=== PATIENT | female | born 1975 | race Caucasian/White ===

== ENCOUNTER 2016-10-03 14:17 | Emergency (ER) | payer BC, OTHER ==
[2016-10-03] MEDS ORDERED: Zofran 4 MG/2 ML VIAL IV ONE (14:34)
[2016-10-03] MEDS ORDERED: Sodium Chloride 0.9% 1000 ML 1,000 ML IV STA (14:34)
[2016-10-03] MEDS ORDERED: NovoLOG Insulin SQ ONE (14:37)
[2016-10-03] MEDS ORDERED: Zofran 4 MG/2 ML VIAL ONE (14:43)
[2016-10-03] MEDS ORDERED: Sodium Chloride 0.9% 1000 ML 1,000 ML ONE (14:44)
[2016-10-03] MEDS ORDERED: NovoLOG Insulin ONE (14:44)
[2016-10-03 14:45] LABS: BASOPHIL % 0.5 % (0.0-0.4); Eosinophil % 7.1 % (0.00-5.0); Granulocytes % 61.5 % (36.0-66.0); Lymphocytes % 26.6 % (24.0-44.0); Mean Cell Volume 88.8 fl (78-100); Mean Corpuscular Hemoglobin 28.4 pg (26-32); Mean Platelet Volume 11.5 fl (6-9.5); Monocytes % 4.3 % (0.0-12.0); Platelet Count 182 K/mm3 (150-450); Red Cell Distribution Width 12.8 % (11.5-14.0)
--- NOTE | 2016-10-03 14:48 | ERPHSYRPT ---
- History of Present Illness Time Seen by Provider: 10/03/16 14:21 Source: patient Exam Limitations: no limitations Patient Subjective Stated Complaint: pt states she began not to feel well while eating lunch today,nausea and weakness. took her bs and it was over 300. Triage Nursing Assessment: pt arrived per wc, alert, sleepy, resp easy,chest clear, abd soft, she states she hurts all over Physician History: patient ate and started feeling bad like her BS was high; she usually takes Humalog for it but wasn;t home so stopped here; took oral meds this am; no fever ; nause but no emesis; no recent exposures, no travel; no diarrhea Timing/Duration: today, hour(s) (1), gradual onset Severity: moderate Modifying Factors: Improves With: eating Associated Symptoms: nausea, abdominal pain (cramps) Allergies/Adverse Reactions: flurbiprofen [From Ansaid] Allergy (Severe, Verified 10/03/16 14:33) Swelling of Face she can take other nsaids Home Medications: Cyanocobalamin (Vitamin B-12) [Vitamin B-12] 1,000 mcg PO UD 01/13/15 [History] Isosorbide Mononitrate 30 mg [Imdur 30 MG] 30 mg PO HS 01/13/15 [History] Lisinopril 10 mg [Zestril 10 MG] 10 mg PO HS 01/13/15 [History] Insulin Lispro [Humalog] 2 units SQ TID 04/07/16 [History] Metformin HCl 1000 mg [Glucophage 1000 MG] 1,000 mg PO BID 04/07/16 [History] Buspirone HCl [Buspar] 15 mg PO BID 04/08/16 [History] Carvedilol 3.125 mg [Coreg 3.125 MG] 3.125 mg DAILY 10/03/16 [History] Imipramine HCl 75 mg HS 10/03/16 [History] Hx Tetanus, Diphtheria Vaccination/Date Given: No Hx Influenza Vaccination/Date Given: No Hx Pneumococcal Vaccination/Date Given: No Immunizations Up to Date: Yes - Review of Systems Constitutional: No Symptoms Eyes: No Symptoms Ears, Nose, & Throat: No Symptoms Respiratory: No Cough, No Dyspnea, No Wheezing Cardiac: No Chest Pain, No Edema, No Palpitations, No Syncope Abdominal/Gastrointestinal: Abdominal Pain (cramps), Nausea (]), No Vomiting, No Diarrhea Genitourinary Symptoms: No Symptoms Musculoskeletal: No Symptoms Skin: No Symptoms Neurological: No Symptoms Psychological: No Symptoms Endocrine: Polyuria, Polydipsia, No Excessive Sweating Hematologic/Lymphatic: No Symptoms Immunological/Allergic: No Symptoms - Past Medical History Pertinent Past Medical History: Yes Neurological History: No Pertinent History ENT History: No Pertinent History Cardiac History: Angina, Hypertension Respiratory History: Asthma Endocrine Medical History: Diabetes Type II Musculoskeletal History: No Pertinent History GI Medical History: Colitis, Diverticulosis, GERD, Gallbladder Disease History: No Pertinent History Psycho-Social History: Depression, Anxiety Female Reproductive Disorders: Menstrual Problems Other Medical History: Mitral valve prolapse - Past Surgical History Past Surgical History: Yes Neuro Surgical History: No Pertinent History Cardiac: Cardiac Catheterization Respiratory: No Pertinent History Gastrointestinal: Other, Cholecystectomy Genitourinary: No Pertinent History, Other Musculoskeletal: No Pertinent History Female Surgical History: Section, Hysterectomy, Tubal Ligation, Other Other Surgical History: Gastric Bypass 2009; Kidney balloon as child; Uteral ablation. UPDATED 06/11/15 - Social History Smoking Status: Current every day smoker How long have you smoked: unsure Exposure to second hand smoke: No Alcohol Use: None Drug Use: none Patient Lives Alone: No - Female History Hx Last Menstrual Period: hyster Hx Now: No - Nursing Vital Signs Nursing Vital Signs: Initial Vital Signs Temperature 97.6 F Temperature Source Oral Pulse Rate 110 Respiratory Rate 18 Blood Pressure [Left Arm] 149/80 Pain Intensity 8 - Physical Exam General Appearance: mild distress, alert, obese Eye Exam: PERRL/EOMI, eyes nml inspection, No photophobia Ears, Nose, Throat Exam: normal ENT inspection, TMs normal, pharynx normal, moist mucous membranes, other (no ketosis on breath) Neck Exam: normal inspection, non-tender, No meningismus Respiratory Exam: normal breath sounds, lungs clear, airway intact, No chest tenderness, No respiratory distress Cardiovascular Exam: regular rate/rhythm, normal heart sounds, normal peripheral pulses, capillary refill <2 sec, No murmur, No friction rub Gastrointestinal/Abdomen Exam: soft, No normal bowel sounds (hyperactive ), No tenderness, No distention, No mass, No guarding, No pulsatile mass, No rebound, No organomegaly Pelvic Exam: deferred Rectal Exam: deferred Back Exam: normal inspection, normal range of motion, No CVA tenderness Extremity Exam: normal inspection, normal range of motion, No pelvis stable, No fabio's sign Neurologic Exam: alert, oriented x 3, cooperative, shear operator automatic II-XII nml as tested, normal mood/affect, nml cerebellar function, nml station & gait, sensation nml Skin Exam: normal color, warm, dry, No rash SpO2 Interpretation: normal SpO2: 99 Oxygen Delivery: Room Air - Course Nursing assessment & vital signs reviewed: Yes Ordered Tests: Active Orders 24 hr Category Date Time Status Accucheck STAT Care 10/03/16 15:15 Active IV Insertion STAT Care 10/03/16 14:34 Active Re-Check Vital Signs STAT Care 10/03/16 14:34 Active CBC W DIFF Stat Lab 10/03/16 14:40 Completed CMP Stat Lab 10/03/16 14:40 Completed Medication Summary Discontinued Medications Generic Name Dose Route Start Last Admin Trade Name Freq PRN Reason Stop Dose Admin Sodium Chloride 1,000 mls @ 999 mls/hr 10/03/16 14:34 10/03/16 14:46 Sodium Chloride 0.9% 1000 Ml IV 10/03/16 15:34 999 mls/hr .Q1H1M STA Administration Sodium Chloride Confirm 10/03/16 14:44 Sodium Chloride 0.9% 1000 Ml Administered 10/03/16 14:45 Dose 1,000 mls @ ud .ROUTE .STK-MED ONE Insulin Aspart 2 unit 10/03/16 14:37 10/03/16 14:46 Novolog Insulin SQ 10/03/16 14:38 2 unit STAT ONE Administration Insulin Aspart Confirm 10/03/16 14:44 Novolog Insulin Administered 10/03/16 14:45 Dose 2 unit .ROUTE .STK-MED ONE Ondansetron HCl 4 mg 10/03/16 14:34 10/03/16 14:46 Zofran 4 Mg/2 Ml Vial IV 10/03/16 14:35 4 mg STAT ONE Administration Ondansetron HCl Confirm 10/03/16 14:43 Zofran 4 Mg/2 Ml Vial Administered 10/03/16 14:44 Dose 4 mg .ROUTE .STK-MED ONE Lab/Rad Data: Laboratory Result Diagrams 10/03/16 14:40 10/03/16 14:40 Laboratory Results 10/03/16 10/03/16 Range/Units 14:40 14:40 WBC 6.0 (4.0-10.5) K/mm3 RBC 4.90 (4.1-5.4) M/mm3 Hgb 13.9 (12.0-16.0) gm/dl Hct 43.5 (35-47) % MCV 88.8 (78-100) fl MCH 28.4 (26-32) pg MCHC 32.0 (32-36) g/dl RDW 12.8 (11.5-14.0) % Plt Count 182 (150-450) K/mm3 MPV 11.5 H (6-9.5) fl Gran % 61.5 (36.0-66.0) % Lymphocytes % 26.6 (24.0-44.0) % Monocytes % 4.3 (0.0-12.0) % Eosinophils % 7.1 H (0.00-5.0) % Basophils % 0.5 (0.0-0.4) % Basophils # 0.03 (0-0.4) Sodium 142 (136-145) mEq/L Potassium 3.8 (3.5-5.1) mEq/L Chloride 106 (98-107) mEq/L Carbon Dioxide 19.9 L (21-32) mEq/L Anion Gap 20.3 H (5-15) MEQ/L BUN 11 (9-20) mg/dL Creatinine 0.92 (0.55-1.30) mg/dl Estimated GFR > 60 ML/MIN Glucose 297 H (70-110) MG/DL Calcium 8.6 (8.5-10.1) mg/dL Total Bilirubin 0.3 (0.2-1.0) mg/dL AST 14 L (15-37) U/L ALT 11 L (12-78) U/L Alkaline Phosphatase 100 (46-116) U/L Serum Total Protein 7.4 (6.4-8.2) gm/dL Albumin 3.8 (3.4-5.0) g/dL reviewed - Progress Progress: improved (after iv fluids and meds), re-examined (after IV fluids and meds) Progress Note: 10/03/16 14:48 IV fluids and meds givne; lab pending; will recheck 10/03/16 15:14 rechecked; significant other at bedside; patient improving clinically; vs ok; cbc ok; labs pending otherwise; will continue fluids and recheck FSBS 10/03/16 15:42 rechecked FSBS and it was 79; will give small amount PB and crackers and recheck ; patient continues to improve 10/03/16 16:27 recheck and BS 69; will give OJ and recheck 10/03/16 17:04 patient rechecked and improving clinically; abdominal cramps resolving; treatment plan and instructions given 10/03/16 17:08 FSBS 93 will d/c Counseled pt/family regarding: lab results, diagnosis, need for follow-up - Departure Time of Disposition: 17:08 Departure Disposition: Home Clinical Impression: Diabetes mellitus type 2 in obese, Hyperglycemia due to type 2 diabetes mellitus Condition: Stable Critical Care Time: No Referrals: SINCERE LEHMAN [Primary Care Provider] - Instructions: Hyperglycemia -- Adult Additional Instructions: good diet; take meds Follow-up with family doctor as directed. Call for appointment. Return if any problems. If you smoke please stop. Call or follow up with your family doctor for assistance if you need it to stop. Please wear your seatbelt when driving. Have a nice day. Thank you for allowing us to participate in your care today. :o) Dr Clemente Krishnan
[2016-10-03 15:20] LABS: ALBUMIN 3.8 g/dL (3.4-5.0); ALKALINE PHOSPHATASE 100 U/L (46-116); ANION GAP 20.3 MEQ/L (5-15); BILIRUBIN,TOTAL 0.3 mg/dL (0.2-1.0); BLOOD UREA NITROGEN 11 mg/dL (9-20); CHLORIDE 106 mEq/L (98-107); Carbon Dioxide 19.9 mEq/L (21-32); Glucose 297 MG/DL (70-110); Potassium 3.8 mEq/L (3.5-5.1); SGOT/AST 14 U/L (15-37); SGPT/ALT 11 U/L (12-78); SODIUM 142 mEq/L (136-145); Total Protein 7.4 gm/dL (6.4-8.2)
[2016-10-03 17:19] VITALS: BP 144/78; PULSE 88; O2SAT 98
== END 2016-10-03 17:19 | disposition home or self-care (01) ==
LOC: ED 14:17
DX: E11.65 Type 2 diabetes mellitus with hyperglycemia (principal); E66.9 Obesity, unspecified; Z79.84 Long term (current) use of oral hypoglycemic drugs
CPT/HCPCS: 36000; 36415; 80053; 82962; 85025; 96360; 96367; 96374; 99283; 99284; 99285; J2405

== ENCOUNTER 2016-11-06 01:21 | Inpatient (IN) | payer OTHER ==
[2016-11-06] MEDS ORDERED: Sodium Chloride 0.9% 1000 ML 1,000 ML ONE ×2 (01:47→02:49)
--- NOTE | 2016-11-06 02:00 | ERPHSYRPT ---
- History of Present Illness Time Seen by Provider: 11/06/16 01:56 Source: patient Exam Limitations: no limitations Physician History: This is a 41-year-old white female with history of angina, high blood pressure, asthma, diabetes, colitis, diverticulosis, GERD, gallbladder disease, depression , anxiety, menstrual problems, mitral valve prolapse. She arrives with complaint of near syncopal episode which occurred proximally 15 minutes prior to arrival . According to the patient she has been having diarrhea and vomiting for 2 days she states she was sitting on the stool and began to feel dizzy felt as if things were going black patient did not fall she did not pass out. She has not had any chest pain she does have some epigastric pain. She states she had a fever yesterday. Past medical history includes angina, high blood pressure, asthma, diabetes, colitis, diverticulosis, GERD, gallbladder disease, depression, anxiety, menstrual period, mitral valve prolapse. Past surgical history includes cardiac catheter, cholecystectomy, , hysterectomy, tubal ligation, gastric bypass, kidney balloon as a child, urine ablation, hysterectomy. Timing/Duration: other (vomiting and diarrhea for 2 days near syncopal episode 15 minutes prior to arrival while sitting on toilet) Severity: moderate Modifying Factors: Worsens With: eating, immobilization, medication, movement, rest, acetaminophen, ibuprofen Associated Symptoms: nausea, vomiting, abdominal pain (epigastric pain), fever, other (near syncopal episode, diarrhea), No shortness of breath, No heartburn, No diaphoresis, No cough, No chills, No chest pain, No headaches, No loss of appetite, No malaise, No rash, No syncope, No seizure, No weakness Allergies/Adverse Reactions: flurbiprofen [From Ansaid] Allergy (Severe, Verified 11/06/16 03:32) Swelling of Face she can take other nsaids Home Medications: Cyanocobalamin (Vitamin B-12) [Vitamin B-12] 1,000 mcg PO 01/13/15 [History] Isosorbide Mononitrate 30 mg [Imdur 30 MG] 30 mg PO 01/13/15 [History] Lisinopril 10 mg [Zestril 10 MG] 10 mg PO 01/13/15 [History] Insulin Lispro [Humalog] 2 units SQ TID 04/07/16 [History] Metformin HCl 1000 mg [Glucophage 1000 MG] 1,000 mg PO BID 04/07/16 [History] Buspirone HCl [Buspar] 15 mg PO BID 04/08/16 [History] Carvedilol 3.125 mg [Coreg 3.125 MG] 3.125 mg DAILY 10/03/16 [History] Imipramine HCl 75 mg HS 10/03/16 [History] Hx Tetanus, Diphtheria Vaccination/Date Given: No Hx Influenza Vaccination/Date Given: No Hx Pneumococcal Vaccination/Date Given: No - Review of Systems Constitutional: Fever, No Chills, No Fatigue, No Lethargy, No Malaise, No Night Sweats, No Weakness, No Weight Loss Eyes: No Symptoms, No Discharge, No Eye Pain, No Eye Redness, No Itchy, No Photophobia, No Tearing, No Vision Changes, No Double Vision, No Foreign Body Sensation Ears, Nose, & Throat: No Symptoms, No Ear Pain, No Ear Discharge, No Hearing Changes, No Tinnitus, No Nose Pain, No Nose Congestion, No Nose Discharge, No Sinus Drainage, No Epistaxis, No Mouth Pain, No Mouth Swelling, No Loose Teeth, No Throat Pain, No Throat Swelling, No Hoarse, No Painful Swallowing, No Snoring , No Stridor Respiratory: No Cough, No Dyspnea Cardiac: No Chest Pain, No Edema, No Syncope Abdominal/Gastrointestinal: Abdominal Pain (epigastric pain), Nausea, Vomiting, Diarrhea, No Constipation, No Hematemesis, No Hematochezia, No Melena, No Dysphagia, No Appetite Changes Genitourinary Symptoms: No Dysuria Musculoskeletal: No Back Pain, No Neck Pain Skin: No Rash Neurological: Other (near syncopal episode on toilet), No Focal Weakness, No Gait Changes, No Headache, No Irritability, No Lethargy, No Paralysis, No Parasthesia, No Seizure, No Sensory Changes, No Speech Changes, No Tics, No Tremors, No Vertigo Psychological: No Symptoms Endocrine: No Symptoms All Other Systems: Reviewed and Negative - Past Medical History Pertinent Past Medical History: Yes Neurological History: No Pertinent History ENT History: No Pertinent History Cardiac History: Angina, Hypertension Respiratory History: Asthma Endocrine Medical History: Diabetes Type II Musculoskeletal History: No Pertinent History GI Medical History: Colitis, Diverticulosis, GERD, Gallbladder Disease History: No Pertinent History Psycho-Social History: Depression, Anxiety Female Reproductive Disorders: Menstrual Problems Other Medical History: Mitral valve prolapse - Past Surgical History Past Surgical History: Yes Neuro Surgical History: No Pertinent History Cardiac: Cardiac Catheterization Respiratory: No Pertinent History Gastrointestinal: Other, Cholecystectomy Genitourinary: No Pertinent History, Other Musculoskeletal: No Pertinent History Female Surgical History: Section, Hysterectomy, Tubal Ligation, Other Other Surgical History: Gastric Bypass 2009; Kidney balloon as child; Uteral ablation. UPDATED 06/11/15 - Social History Smoking Status: Current every day smoker How long have you smoked: unsure Exposure to second hand smoke: No Alcohol Use: None Drug Use: none Patient Lives Alone: No - Female History Hx Now: No - Nursing Vital Signs Nursing Vital Signs: Initial Vital Signs Temperature 97.7 F Temperature Source Oral Pulse Rate 68 Respiratory Rate 16 Blood Pressure [Right Arm] 95/36 Pain Intensity 0 - Physical Exam General Appearance: no apparent distress, alert Eye Exam: PERRL/EOMI, eyes nml inspection Ears, Nose, Throat Exam: normal ENT inspection, TMs normal, pharynx normal, moist mucous membranes Neck Exam: normal inspection, non-tender, supple, full range of motion Respiratory Exam: normal breath sounds, lungs clear, No respiratory distress Cardiovascular Exam: regular rate/rhythm, normal heart sounds, normal peripheral pulses Gastrointestinal/Abdomen Exam: soft, normal bowel sounds, tenderness ( epigastric tenderness), No mass, No rebound Back Exam: normal inspection, normal range of motion, No CVA tenderness, No vertebral tenderness Extremity Exam: normal inspection, normal range of motion, pelvis stable Neurologic Exam: alert, oriented x 3, cooperative, normal mood/affect, nml cerebellar function, nml station & gait, sensation nml, No motor deficits Skin Exam: normal color, warm, dry, No rash SpO2 Interpretation: normal - Course Nursing assessment & vital signs reviewed: Yes EKG Interpreted by Me: RATE (65 bpm), Sinus Rhythm, NORMAL AXIS, Other (EKG sinus rhythm, 65 bpm, normal axis, T-wave inversion in lead 3, U-wave in lead aVFno acute ST or T wave changes) Ordered Tests: Active Orders 24 hr Category Date Time Status Accucheck STAT Care 11/06/16 02:12 Active EKG-ER Only STAT Care 11/06/16 02:12 Active IV Insertion STAT Care 11/06/16 02:12 Active Orthostatic Vital Signs STAT Care 11/06/16 02:12 Active AMYLASE Stat Lab 11/06/16 02:00 Completed CBC W DIFF Stat Lab 11/06/16 02:00 Completed CMP Stat Lab 11/06/16 02:00 Completed LIPASE Stat Lab 11/06/16 02:00 Completed TROPONIN Stat Lab 11/06/16 02:00 Completed Transfer Order Routine Transfer 11/06/16 03:56 Ordered Medication Summary Generic Name Dose Route Start Last Admin Trade Name Freq PRN Reason Stop Dose Admin Potassium Chloride/Sodium Chloride 1,000 mls @ 125 mls/hr 11/06/16 04:00 Sodium Chloride 0.9% W/ 20 Meq Kcl/Liter IV 12/06/16 03:59 .Q8H SISI Discontinued Medications Generic Name Dose Route Start Last Admin Trade Name Freq PRN Reason Stop Dose Admin Fentanyl Citrate 100 mcg 11/06/16 03:53 11/06/16 03:57 Sublimaze 100 Mcg/2 Ml IV 11/06/16 03:54 100 mcg STAT ONE Administration Fentanyl Citrate Confirm 11/06/16 03:53 Sublimaze 100 Mcg/2 Ml Administered 11/06/16 03:54 Dose 100 mcg .ROUTE .STK-MED ONE Sodium Chloride Confirm 11/06/16 01:47 Sodium Chloride 0.9% 1000 Ml Administered 11/06/16 01:48 Dose 1,000 mls @ ud .ROUTE .STK-MED ONE Sodium Chloride 1,000 mls @ 999 mls/hr 11/06/16 02:12 11/06/16 02:40 Sodium Chloride 0.9% 1000 Ml IV 11/06/16 03:12 999 mls/hr .Q1H1M STA Administration Sodium Chloride 1,000 mls @ 999 mls/hr 11/06/16 02:45 11/06/16 02:49 Sodium Chloride 0.9% 1000 Ml IV 11/06/16 03:45 999 mls/hr .Q1H1M STA Administration Sodium Chloride Confirm 11/06/16 02:49 Sodium Chloride 0.9% 1000 Ml Administered 11/06/16 02:50 Dose 1,000 mls @ ud .ROUTE .STK-MED ONE Ondansetron HCl 4 mg 11/06/16 03:31 11/06/16 03:36 Zofran 4 Mg/2 Ml Vial IV 11/06/16 03:32 4 mg STAT ONE Administration Ondansetron HCl Confirm 11/06/16 03:33 Zofran 4 Mg/2 Ml Vial Administered 11/06/16 03:34 Dose 4 mg .ROUTE .STK-MED ONE Lab/Rad Data: Laboratory Result Diagrams 11/06/16 02:00 11/06/16 02:00 Laboratory Results 11/06/16 11/06/16 Range/Units 02:00 02:00 WBC 5.6 (4.0-10.5) K/mm3 RBC 4.91 (4.1-5.4) M/mm3 Hgb 14.2 (12.0-16.0) gm/dl Hct 43.5 (35-47) % MCV 88.6 (78-100) fl MCH 28.9 (26-32) pg MCHC 32.6 (32-36) g/dl RDW 13.4 (11.5-14.0) % Plt Count 245 (150-450) K/mm3 MPV 11.6 H (6-9.5) fl Gran % 57.9 (36.0-66.0) % Lymphocytes % 25.4 (24.0-44.0) % Monocytes % 10.6 (0.0-12.0) % Eosinophils % 5.9 H (0.00-5.0) % Basophils % 0.2 (0.0-0.4) % Basophils # 0.01 (0-0.4) Sodium 138 (136-145) mEq/L Potassium 3.2 L (3.5-5.1) mEq/L Chloride 104 (98-107) mEq/L Carbon Dioxide 20.8 L (21-32) mEq/L Anion Gap 16.3 H (5-15) MEQ/L BUN 17 (9-20) mg/dL Creatinine 0.99 (0.55-1.30) mg/dl Estimated GFR > 60 ML/MIN Glucose 141 H (70-110) MG/DL Calcium 7.9 L (8.5-10.1) mg/dL Total Bilirubin 0.3 (0.2-1.0) mg/dL AST 15 (15-37) U/L ALT 10 L (12-78) U/L Alkaline Phosphatase 58 (46-116) U/L Troponin I < 0.017 (0.000-0.056) ng/ml Serum Total Protein 7.2 (6.4-8.2) gm/dL Albumin 3.4 (3.4-5.0) g/dL Amylase 33 (25-115) U/L Lipase 93 (73-393) U/L - Progress Progress: improved Progress Note: 11/06/16 02:44 Notified by nurse the patient does have orthostatic hypotension. Patient's EKG normal sinus rhythm 65 bpm normal axis patient does have some T- wave inversion in leads III and F this has been seen on some of the patient's previous EKGs. 11/06/16 03:45 Patient's CBC within normal limits hemoglobin 14.7 hematocrit 43.5 chemistry remarkable for a potassium of 3.2 otherwise normal troponin is normal amylase and lipase are normal Patient definitely had orthostatic hypotension she is given normal saline 2 L in the emergency room. Patient states she is having some left sided upper abdominal pain. She has mild tenderness with palpation I've discussed the case with Dr. Hinds who is occupational therapist assistant for Dr. Chong. Will place patient on observation telemetry. Diagnoses vomiting, diarrhea, orthostatic hypotension, near syncopal episode. Will provide IV normal saline with 20 mEq of potassium per liter at 1 25 mL/h. Will write for morphine for pain. Zofran for vomiting. We will obtain serial troponins. . - Departure Time of Disposition: 03:45 Departure Disposition: Observation Clinical Impression: Orthostatic hypotension, near syncopal episode Vomiting Qualifiers: Vomiting type: unspecified Vomiting Intractability: non-intractable Nausea presence: with nausea Qualified Code(s): R11.2 - Nausea with vomiting, unspecified Diarrhea Qualifiers: Diarrhea type: unspecified type Qualified Code(s): R19.7 - Diarrhea, unspecified Condition: Fair Critical Care Time: No Referrals: SINCERE CHONG [Primary Care Provider] -
[2016-11-06] MEDS ORDERED: Sodium Chloride 0.9% 1000 ML 1,000 ML IV STA ×3 (02:12→08:30)
[2016-11-06 02:19] LABS: BASOPHIL % 0.2 % (0.0-0.4); Eosinophil % 5.9 % (0.00-5.0); Granulocytes % 57.9 % (36.0-66.0); Lymphocytes % 25.4 % (24.0-44.0); Mean Cell Volume 88.6 fl (78-100); Mean Corpuscular Hemoglobin 28.9 pg (26-32); Mean Platelet Volume 11.6 fl (6-9.5); Monocytes % 10.6 % (0.0-12.0); Platelet Count 245 K/mm3 (150-450); Red Blood Count 4.91 M/mm3 (4.1-5.4); Red Cell Distribution Width 13.4 % (11.5-14.0); White Blood Count 5.6 K/mm3 (4.0-10.5)
[2016-11-06 02:29] LABS: ALBUMIN 3.4 g/dL (3.4-5.0); ALKALINE PHOSPHATASE 58 U/L (46-116); ANION GAP 16.3 MEQ/L (5-15); BILIRUBIN,TOTAL 0.3 mg/dL (0.2-1.0); BLOOD UREA NITROGEN 17 mg/dL (9-20); CHLORIDE 104 mEq/L (98-107); Carbon Dioxide 20.8 mEq/L (21-32); Glucose 141 MG/DL (70-110); LIPASE 93 U/L (73-393); Potassium 3.2 mEq/L (3.5-5.1); SGOT/AST 15 U/L (15-37); SGPT/ALT 10 U/L (12-78); SODIUM 138 mEq/L (136-145); Total Protein 7.2 gm/dL (6.4-8.2)
[2016-11-06 02:33] LABS: TROPONIN < 0.017 ng/ml (0.000-0.056)
[2016-11-06] MEDS ORDERED: Zofran 4 MG/2 ML VIAL IV ONE (03:31)
[2016-11-06] MEDS ORDERED: Zofran 4 MG/2 ML VIAL ONE (03:33)
[2016-11-06] MEDS ORDERED: SUBLIMAZE 100 MCG/2 ML ONE (03:53)
[2016-11-06] MEDS ORDERED: SUBLIMAZE 100 MCG/2 ML IV ONE (03:53)
[2016-11-06] MEDS ORDERED: Sodium Chloride 0.9% W/ 20 mEq KCl/LITER 1,000 ML IV SCH (04:00)
[2016-11-06] MEDS ORDERED: Sodium Chloride 0.9% W/ 20 mEq KCl/LITER 1,000 ML IV ONE (04:23)
[2016-11-06] MEDS ORDERED: NovoLOG Insulin SQ PRN (04:57)
[2016-11-06] MEDS: Sodium Chloride 0.9% W/ 20 mEq KCl/LITER 1,000 ML IV SCH ×2 (06:22→09:58)
[2016-11-06] MEDS ORDERED: MORPHINE SULFATE 2 MG INJ IV PRN (08:26)
[2016-11-06] MEDS ORDERED: TYLENOL 325 MG PO PRN (08:26)
[2016-11-06] MEDS ORDERED: PROVENTIL 2.5 MG/3 ML NEB IH PRN (08:53)
[2016-11-06] MEDS ORDERED: PROVENTIL COMMON CANISTER IH PRN (08:53)
[2016-11-06] MEDS ORDERED: Cyanocobalamin B-12 1000 MCG/ML IJ PRN (08:56)
[2016-11-06] MEDS ORDERED: NON-FORMULARY ITEM (Cyanocobalamin (Vitamin B-12) [Vitamin B-12] 1,000 MCG) PO SCH (09:00)
--- NOTE | 2016-11-06 09:26 | HP ---
HISTORY OF PRESENT ILLNESS: This is a 41 year-old white female with a complex past medical history who presented to the emergency department early this morning. She reports that she has had vomiting and diarrhea since Friday. Her daughter work her up last night and when she got up to use the bathroom at approximately 0030 hours she was lightheaded and felt like she was going to pass out. Her daughter then woke up her friend who has been staying with her. They brought her to the emergency room. She reports since coming here she has not had any vomiting but had two diarrheal stools. She denies any blood in her stools. She reports that she has been able to take some sips of Jaycee Mist. She reports a fever on Friday and Friday to 103.7F. She denies any travel. She reports some sinus drainage. No cough. No rhinorrhea. She has history of gastric bypass surgery and her gastric bypass surgeon is Dr. Rowan at . The patient denies any history of blockages in her heart. She reports a normal heart cath about a year ago. She takes isosorbide for angina. She denies any congestive heart failure. She reports that she is still feeling dizzy whenever she gets up to use the bathroom. In the emergency room, she was found to be dehydrated. The emergency room doctor reported that he gave her 2 liters normal saline and then he put potassium in her IV fluids as her potassium was also found to be low. REVIEW OF SYSTEMS: She denies any lower extremity edema. She reports she is urinating normally but the nurses told her the urine is dark. She has pain in the middle of her stomach that is sharp. She denies any chest pain or shortness of breath. No cough. No rhinorrhea. No rashes. No fever currently. PAST MEDICAL HISTORY: Gastric bypass surgery. History of obesity. History of angina, hypertension, asthma, diabetes, diverticulosis, gastroesophageal reflux disease, depression, anxiety, cysts on her left ovary, mitral valve prolapse. PAST SURGICAL HISTORY: Cholecystectomy, hysterectomy, section x2, tubal ligation, gastric bypass surgery. She reported some kind of kidney balloon when she was [age] years old. MEDICATIONS: Albuterol, aspirin 81 mg daily, carvedilol 3.125 mg b.i.d., vitamin B12 1,000 mcg twice monthly IM, Imipramine 75 mg p.o. q.h.s., Humalog 2 units t.i.d., isosorbide mononitrate 30 mg every evening, lisinopril 10 mg p.o. q.h.s., Metformin 1,000 mg b.i.d., omeprazole 40 mg p.o. daily, promethazine 25 mg every four hours as needed for vomiting. ALLERGIES: FLURBIPROFEN. The patient reports this is an NSAID but she can take things like ibuprofen. SOCIAL HISTORY: She has three children who live with her. She reports that she has been on medical leave since June for vertigo and syncope and her diabetes. She has a friend staying with her. She denies any alcohol use. She reports she smokes and trying to quit. She denies any illicit drug use. FAMILY HISTORY: Her mother is and of myocardial infarction. Her father is and from squamous cell carcinoma. PHYSICAL EXAMINATION: VITAL SIGNS: Temperature current 97.8F, temperature max 97.8F, heart rate 58 to 104 currently 85, respiratory rate 16 to 20, blood pressure 83 to 102 over 31 to 78, weight 113.3 kg. Oxygen saturation 95 to 98% on room air. GENERAL: The patient is a pleasant talkative lady lying in bed in no acute distress. CVS: She has a regular rate and rhythm. No murmurs, gallops or rubs. CHEST: Clear to auscultation bilaterally. No crackles or wheezes. ABDOMEN: Tender just above her umbilicus. No guarding. No rigidity. Normal bowel sounds. EXTREMITIES: No clubbing, cyanosis or edema. She has +2 radial pulses and +1 dorsalis pedis pulses bilaterally. LABORATORY DATA AND TESTS: White blood cell count was 5.6, hemoglobin 14.2. Potassium 3.2, carbon dioxide 20.8, glucose 141. Amylase and lipase were negative. ASSESSMENT AND PLAN: 1) ABDOMINAL PAIN: She continues to complain of sharp abdominal pain. She is at high risk for intra-abdominal pathology since she has had the gastric bypass surgery. Will check a CT scan of her abdomen and pelvis with and without contrast. 2) DEHYDRATION: The emergency room doctor reported that he gave her 2 liters normal saline in the emergency department and will give her another 1 liter of normal saline bolus and continue with her IV fluids with normal saline with 20 mEq of potassium chloride, 125 ml/hour. Will recheck a BMP. 3) HYPOTENSION: Will hold her antihypertensive and give the bolus as above. Most likely this is related to her dehydration. 4) HYPOKALEMIA: Will check her potassium and check magnesium level. 5) DIABETES MELLITUS TYPE 2: She is on a low dose sliding scale of NovoLog, will continue to hold her Metformin as she is going to be getting CT scan of her abdomen and pelvis with IV contrast.
[2016-11-06 09:43] LABS: ANION GAP 12.7 MEQ/L (5-15); BLOOD UREA NITROGEN 16 mg/dL (9-20); CHLORIDE 109 mEq/L (98-107); Carbon Dioxide 23.6 mEq/L (21-32); Glucose 97 MG/DL (70-110); MAGNESIUM 1.6 mg/dL (1.8-2.4); Potassium 4.3 mEq/L (3.5-5.1); SODIUM 141 mEq/L (136-145)
[2016-11-06] MEDS ORDERED: NON-FORMULARY ITEM (Omeprazole [Omeprazole] 40 MG) PO SCH (10:00)
[2016-11-06] MEDS: SUBLIMAZE 100 MCG/2 ML IV PRN ×4 (10:19→23:26)
[2016-11-06] MEDS: Protonix 40MG Tablet PO SCH (10:20)
[2016-11-06] MEDS: ECOTRIN 81 MG PO SCH (10:20)
[2016-11-06] MEDS ORDERED: HOLD METFORMIN PRODUCTS FOR 48 HOURS MC SCH (11:45)
--- NOTE | 2016-11-06 12:32 | XRAY ---
Indication: Stomach pain. Multiple contiguous axial images obtained through the abdomen and pelvis prior to and following 80 cc Isovue 370 contrast. Oral contrast also given. Comparison: April 07, 2016. Lung bases demonstrates minimal bibasilar atelectasis/scarring. No infiltrate or effusion. Heart is not enlarged. Noncontrasted images through the abdomen demonstrates stable nonobstructing left renal calculus and solitary punctate pancreatic head calcification. No new visceral calcifications/calculi. Again previous gastric bypass surgery. Contrasted bowel loops appear nonobstructed. Again minimal sigmoid diverticulosis with now minimal pericolonic stranding possibly mild/early diverticulitis. Rectum demonstrates air-fluid leveling presumed diarrhea. Normal appendix. No free fluid/air. Again previous hysterectomy and previous cholecystectomy. Remaining liver, pancreas, spleen, adrenal glands, kidneys, ureters, bladder, and aorta appear unremarkable. No pathologic retroperitoneal lymphadenopathy. Osseous structures intact again with lower lumbar degenerative changes. Impression: 1. Again minimal sigmoid diverticulosis with new minimal pericolonic stranding possibly mild/early diverticulitis. Correlate clinically. New rectal fluid leveling presumed diarrhea. 2. Stable nonobstructing left renal calculus, punctate pancreatic calcification, and sigmoid diverticulosis. CTDI 23.68
[2016-11-06] MEDS: Magnesium 1 Gm / 100 Ml D5W*** 100 ML IV SCH ×2 (12:48→13:47)
[2016-11-06] MEDS: D5W/0.45NS W/ 20mEq KCl 1000 ML 1,000 ML IV SCH ×2 (12:49→23:09)
[2016-11-06] MEDS ORDERED: Magnesium Sulfate 1 GM/2 ML VIAL IV ONE (13:00)
[2016-11-06] MEDS: Zofran 4 MG/2 ML VIAL IV PRN ×2 (13:03→23:50)
[2016-11-06] MEDS: Zosyn 3.375GM/100 Ml D5W 100 ML IV SCH ×2 (17:24→23:45)
[2016-11-06] MEDS ORDERED: IMIPRAMINE HCL PO SCH (22:00)
[2016-11-06] MEDS: MEDICATION INTERVENTION MC PRN (22:17)
[2016-11-07] MEDS: Zosyn 3.375GM/100 Ml D5W 100 ML IV SCH ×4 (05:43→23:01)
[2016-11-07 05:47] LABS: ANION GAP 12.6 MEQ/L (5-15); BLOOD UREA NITROGEN 7 mg/dL (9-20); CHLORIDE 110 mEq/L (98-107); Carbon Dioxide 24.7 mEq/L (21-32); Glucose 92 MG/DL (70-110); Potassium 4.1 mEq/L (3.5-5.1); SODIUM 143 mEq/L (136-145)
[2016-11-07 05:53] LABS: BASOPHIL % 0.2 % (0.0-0.4); Eosinophil % 7.1 % (0.00-5.0); Granulocytes % 55.6 % (36.0-66.0); Lymphocytes % 28.1 % (24.0-44.0); Mean Cell Volume 91.3 fl (78-100); Mean Corpuscular Hemoglobin 28.7 pg (26-32); Mean Platelet Volume 11.7 fl (6-9.5); Platelet Count 156 K/mm3 (150-450); Red Cell Distribution Width 13.3 % (11.5-14.0); White Blood Count 4.3 K/mm3 (4.0-10.5)
[2016-11-07] MEDS: SUBLIMAZE 100 MCG/2 ML IV PRN ×5 (08:17→21:59)
[2016-11-07] MEDS: ECOTRIN 81 MG PO SCH (08:18)
[2016-11-07] MEDS: Protonix 40MG Tablet PO SCH (08:18)
--- NOTE | 2016-11-07 09:08 | PCM.NOTE ---
Date and Time: 11/07/16 0904 Subjective Assessment: No diarrhea this morning and no vomiting. Has tolerated Sprite. Still c/o periumbilical abd pain. - Review of Systems Constitutional: No Fever Abdominal/Gastrointestinal: Abdominal Pain Objective Exam General Appearance: no apparent distress Neurologic Exam: alert, oriented x 3, cooperative Skin Exam: normal color, warm, dry Respiratory Exam: normal breath sounds, lungs clear, No crackles/rales, No rhonchi, No wheezing Cardiovascular Exam: regular rate/rhythm, normal heart sounds, No murmur Gastrointestinal/Abdomen Exam: soft, other (hypoactive bowel sounds), No distention, No guarding, No rebound Extremity Exam: No pedal edema, No swelling OBJECTIVE DATA Vital Signs: Vital Signs - 24 hr Temp Pulse Resp BP Pulse Ox 11/07/16 07:31 97.9 F 60 20 102/56 97 11/07/16 07:11 77 18 95 11/07/16 05:00 97.8 F 60 18 114/65 97 11/07/16 00:10 97.6 F 59 L 20 121/58 98 11/06/16 21:00 98.2 F 56 L 18 100/56 96 11/06/16 20:05 62 16 97 11/06/16 17:00 97.7 F 55 L 16 118/77 99 11/06/16 13:03 97.8 F 11/06/16 13:00 98.6 F 53 L 18 88/53 97 11/06/16 12:00 18 11/06/16 09:57 54 L 91/52 11/06/16 09:20 94 L Pain Assessment - Last Documented Pain Intensity 7 Pain Scale Used 0-10 Pain Scale Intake and Output: Intake & Output 11/04/16 11/05/16 11/06/16 11/07/16 11:59 11:59 11:59 11:59 Intake Total 0 3919 Output Total 1100 Balance 0 2819 Weight 113.398 kg 114.033 kg Lab Results: Accuchecks Date 11/06/16 Date 11/06/16 Date 11/06/16 Time 16:30 Time 16:30 Time 11:30 Accucheck Value: 114 Accucheck Value: 107 Accucheck Value: 107 Lab Results-Last 24 Hours 11/06/16 11/06/16 11/06/16 Range/Units 09:00 09:01 11:49 WBC (4.0-10.5) K/mm3 RBC (4.1-5.4) M/mm3 Hgb (12.0-16.0) gm/dl Hct (35-47) % MCV (78-100) fl MCH (26-32) pg MCHC (32-36) g/dl RDW (11.5-14.0) % Plt Count (150-450) K/mm3 MPV (6-9.5) fl Gran % (36.0-66.0) % Lymphocytes % (24.0-44.0) % Monocytes % (0.0-12.0) % Eosinophils % (0.00-5.0) % Basophils % (0.0-0.4) % Basophils # (0-0.4) Sodium 141 (136-145) mEq/L Potassium 4.3 (3.5-5.1) mEq/L Chloride 109 H (98-107) mEq/L Carbon Dioxide 23.6 (21-32) mEq/L Anion Gap 12.7 (5-15) MEQ/L BUN 16 (9-20) mg/dL Creatinine 0.91 (0.55-1.30) mg/dl Estimated GFR > 60 ML/MIN Glucose 97 (70-110) MG/DL Hemoglobin A1c 5.7 (4.5-6.2) Calcium 7.9 L (8.5-10.1) mg/dL Magnesium 1.6 L (1.8-2.4) mg/dL Troponin I < 0.017 (0.000-0.056) ng/ml 11/07/16 11/07/16 11/07/16 Range/Units 04:45 04:45 04:45 WBC 4.3 (4.0-10.5) K/mm3 RBC 3.90 L (4.1-5.4) M/mm3 Hgb 11.2 L (12.0-16.0) gm/dl Hct 35.6 (35-47) % MCV 91.3 (78-100) fl MCH 28.7 (26-32) pg MCHC 31.5 L (32-36) g/dl RDW 13.3 (11.5-14.0) % Plt Count 156 (150-450) K/mm3 MPV 11.7 H (6-9.5) fl Gran % 55.6 (36.0-66.0) % Lymphocytes % 28.1 (24.0-44.0) % Monocytes % 9.0 (0.0-12.0) % Eosinophils % 7.1 H (0.00-5.0) % Basophils % 0.2 (0.0-0.4) % Basophils # 0.01 (0-0.4) Sodium 143 (136-145) mEq/L Potassium 4.1 (3.5-5.1) mEq/L Chloride 110 H (98-107) mEq/L Carbon Dioxide 24.7 (21-32) mEq/L Anion Gap 12.6 (5-15) MEQ/L BUN 7 L (9-20) mg/dL Creatinine 0.91 (0.55-1.30) mg/dl Estimated GFR > 60 ML/MIN Glucose 92 (70-110) MG/DL Hemoglobin A1c (4.5-6.2) Calcium 7.6 L (8.5-10.1) mg/dL Magnesium 1.7 L (1.8-2.4) mg/dL Troponin I (0.000-0.056) ng/ml Radiology Exams: Radiology Procedures Category Date Time Status ABDOMEN AND PELVIS W&WO CONTRA [CT] Routine Exams 11/06/16 08:25 Completed Assessment/Plan (1) Diverticulitis Current Visit: Yes Status: Acute Qualifiers: Diverticulitis site: large intestine Diverticulitis bleeding: without bleeding Diverticulitis complication: without perforation or abscess Qualified Code(s): K57.32 - Diverticulitis of large intestine without perforation or abscess without bleeding Assessment & Plan: on IV zosyn and improving. (2) Abdominal pain Current Visit: Yes Status: Acute Assessment & Plan: has chronic abd pain but this was more acute. Code(s): R10.9 - UNSPECIFIED ABDOMINAL PAIN (3) Diarrhea Current Visit: Yes Status: Acute Qualifiers: Diarrhea type: unspecified type Qualified Code(s): R19.7 - Diarrhea, unspecified Assessment & Plan: improving. ok to try to advance diet as osito. Code(s): R19.7 - DIARRHEA, UNSPECIFIED
[2016-11-07] MEDS: D5W/0.45NS W/ 20mEq KCl 1000 ML 1,000 ML IV SCH ×2 (09:40→18:06)
[2016-11-07] MEDS: Zofran 4 MG/2 ML VIAL IV PRN ×2 (09:42→18:05)
[2016-11-07] MEDS: MEDICATION INTERVENTION MC PRN (22:01)
[2016-11-07] MEDS: Phenergan 25 MG INJ IV PRN (23:01)
[2016-11-08] MEDS: D5W/0.45NS W/ 20mEq KCl 1000 ML 1,000 ML IV SCH ×2 (04:47→15:47)
[2016-11-08] MEDS: Zosyn 3.375GM/100 Ml D5W 100 ML IV SCH ×3 (06:23→18:42)
--- NOTE | 2016-11-08 08:05 | PCM.NOTE ---
Date and Time: 11/08/16 0749 Subjective Assessment: She is still having abdominal pain. Yesterday her fentanyl was increased; it is now lasting at least 4 hours at a time but then the pain returns, in the LUQ and LLQ. She did tolerate some mashed potatoes yesterday. Per nursing, possibly family brought her some other food as well. No vomiting or diarrhea. - Review of Systems Constitutional: No Fever Abdominal/Gastrointestinal: Abdominal Pain, Nausea, No Vomiting, No Diarrhea Objective Exam General Appearance: mild distress Neurologic Exam: alert, oriented x 3, cooperative Skin Exam: normal color, warm, dry Respiratory Exam: normal breath sounds, lungs clear, No crackles/rales, No rhonchi, No wheezing Cardiovascular Exam: regular rate/rhythm, normal heart sounds, No murmur Gastrointestinal/Abdomen Exam: soft, tenderness (LUQ and LLQ, minor), other ( hypoactive bowel sounds), No distention, No mass, No guarding, No rebound Extremity Exam: No pedal edema, No swelling OBJECTIVE DATA Vital Signs: Vital Signs - 24 hr Temp Pulse Resp BP Pulse Ox 11/08/16 05:00 97.7 F 55 L 16 118/65 95 11/08/16 00:37 98.2 F 65 18 130/73 96 11/07/16 23:35 65 18 96 11/07/16 21:00 98.3 F 55 L 16 129/67 99 11/07/16 16:08 97.8 F 70 22 126/78 96 11/07/16 16:00 22 11/07/16 12:22 97.8 F 68 20 124/57 95 11/07/16 11:50 20 11/07/16 08:00 20 Pain Assessment - Last Documented Pain Intensity 6 Pain Scale Used 0-10 Pain Scale Intake and Output: Intake & Output 11/05/16 11/06/16 11/07/16 11/08/16 11:59 11:59 11:59 11:59 Intake Total 0 4039 3001 Output Total 1100 2800 Balance 0 2939 201 Weight 113.398 kg 114.033 kg Lab Results: Accuchecks Date 11/07/16 Date 11/07/16 Time 16:00 Time 11:30 Accucheck Value: 113 Accucheck Value: 131 Accucheck Value: 98 Radiology Exams: Radiology Procedures Category Date Time Status ABDOMEN AND PELVIS W&WO CONTRA [CT] Routine Exams 11/06/16 08:25 Completed Assessment/Plan (1) Diverticulitis Current Visit: Yes Status: Acute Qualifiers: Diverticulitis site: large intestine Diverticulitis bleeding: without bleeding Diverticulitis complication: without perforation or abscess Qualified Code(s): K57.32 - Diverticulitis of large intestine without perforation or abscess without bleeding Assessment & Plan: On IV zosyn. Scale back the diet to strict CLD. No outside food. Continue IV fentanyl for pain as her bp runs low. (2) Abdominal pain Current Visit: Yes Status: Acute Code(s): R10.9 - UNSPECIFIED ABDOMINAL PAIN (3) Diarrhea Current Visit: Yes Status: Acute Qualifiers: Diarrhea type: unspecified type Qualified Code(s): R19.7 - Diarrhea, unspecified Assessment & Plan: resolved Code(s): R19.7 - DIARRHEA, UNSPECIFIED
[2016-11-08] MEDS: Protonix 40MG Tablet PO SCH (08:30)
[2016-11-08] MEDS: ECOTRIN 81 MG PO SCH (08:30)
[2016-11-08] MEDS: Zofran 4 MG/2 ML VIAL IV PRN (08:36)
[2016-11-08] MEDS: SUBLIMAZE 100 MCG/2 ML IV PRN ×3 (08:36→19:43)
[2016-11-08] MEDS: Phenergan 25 MG INJ IV PRN (13:59)
[2016-11-09] MEDS: D5W/0.45NS W/ 20mEq KCl 1000 ML 1,000 ML IV SCH ×3 (00:25→11:09)
[2016-11-09] MEDS: SUBLIMAZE 100 MCG/2 ML IV PRN ×2 (00:43→09:35)
[2016-11-09] MEDS: Phenergan 25 MG INJ IV PRN ×2 (00:44→14:17)
[2016-11-09] MEDS: MEDICATION INTERVENTION MC PRN (00:45)
[2016-11-09] MEDS: Zosyn 3.375GM/100 Ml D5W 100 ML IV SCH ×4 (01:06→18:05)
[2016-11-09] MEDS: Protonix 40MG Tablet PO SCH (09:25)
[2016-11-09] MEDS: ECOTRIN 81 MG PO SCH (09:25)
[2016-11-09] MEDS: Zofran 4 MG/2 ML VIAL IV PRN ×2 (09:36→22:47)
--- NOTE | 2016-11-09 11:17 | PCM.NOTE ---
Date and Time: 11/09/16 1113 Subjective Assessment: She reports some continued abdominal pain but wants to try some chicken noodle soup. She is agreeable to changing to oral pain medication and understands that this is only for short term treatment and not to be terminal worker. She has not had a stool but states there is not much in there to come out. - Review of Systems Constitutional: No Symptoms Eyes: No Symptoms Ears, Nose, & Throat: No Symptoms Respiratory: No Symptoms Cardiac: No Symptoms Abdominal/Gastrointestinal: Abdominal Pain, Nausea, No Vomiting, No Diarrhea, No Constipation Genitourinary Symptoms: No Symptoms Musculoskeletal: No Symptoms Skin: No Symptoms Objective Exam General Appearance: no apparent distress, alert, obese Neurologic Exam: alert, cooperative, normal mood/affect Skin Exam: normal color, warm, dry, No rash Respiratory Exam: normal breath sounds, lungs clear, No crackles/rales, No rhonchi, No wheezing Cardiovascular Exam: regular rate/rhythm, normal heart sounds, No murmur, No friction rub, No gallop Gastrointestinal/Abdomen Exam: soft, normal bowel sounds, tenderness, other ( mild epigastric and left lower quadrant tenderness), No distention, No mass, No guarding Extremity Exam: other (no c/c/e) OBJECTIVE DATA Vital Signs: Vital Signs - 24 hr Temp Pulse Resp BP Pulse Ox 11/09/16 07:32 98 F 70 20 122/58 99 11/09/16 05:00 97.8 F 53 L 16 134/77 99 11/09/16 04:00 16 11/09/16 00:09 97.9 F 54 L 15 149/72 97 11/09/16 00:00 18 11/08/16 22:10 67 18 96 11/08/16 21:00 98.6 F 65 17 127/71 95 11/08/16 20:00 18 11/08/16 16:29 98.2 F 57 L 18 118/68 99 11/08/16 12:51 97.8 F 66 20 131/69 99 Pain Assessment - Last Documented Pain Intensity 2 Pain Scale Used 0-10 Pain Scale Intake and Output: Intake & Output 11/07/16 11/08/16 11/09/16 11/10/16 06:59 06:59 06:59 07:59 Intake Total 5122 420 Output Total 3400 500 Balance 1722 -80 Weight 114.85 kg 116.165 kg Lab Results: Accuchecks Accucheck Value: 84 Accucheck Value: 94 Accucheck Value: 95 Accucheck Value: 100 Assessment/Plan (1) Diverticulitis Current Visit: Yes Status: Acute Qualifiers: Diverticulitis site: large intestine Diverticulitis bleeding: without bleeding Diverticulitis complication: without perforation or abscess Qualified Code(s): K57.32 - Diverticulitis of large intestine without perforation or abscess without bleeding Assessment & Plan: Continue zosyn and try to transition to oral pain medication from the IV fentanyl. If she can tolerate oral pain medication for her pain control, may be able to be discharged home tomorrow on oral antibiotics. (2) Diabetes mellitus type 2 in obese Current Visit: No Status: Acute Assessment & Plan: Currently her blood glucoses are controlled without medication. Code(s): E11.9 - TYPE 2 DIABETES MELLITUS WITHOUT COMPLICATIONS; E66.9 - OBESITY , UNSPECIFIED (3) Hypotension Current Visit: Yes Status: Acute Assessment & Plan: This has resolved and her blood pressure is good now. Code(s): I95.9 - HYPOTENSION, UNSPECIFIED
[2016-11-09] MEDS: NORCO 5/325 MG PO PRN ×2 (14:21→22:47)
[2016-11-10] MEDS: D5W/0.45NS W/ 20mEq KCl 1000 ML 1,000 ML IV SCH ×2 (00:32→06:22)
[2016-11-10] MEDS: Zosyn 3.375GM/100 Ml D5W 100 ML IV SCH ×3 (00:52→12:30)
[2016-11-10] MEDS: NORCO 5/325 MG PO PRN (08:07)
[2016-11-10] MEDS: Zofran 4 MG/2 ML VIAL IV PRN (08:07)
[2016-11-10] MEDS: ECOTRIN 81 MG PO SCH (08:55)
[2016-11-10] MEDS: Protonix 40MG Tablet PO SCH (08:55)
--- NOTE | 2016-11-10 10:20 | PCM.DCORD ---
- Discharge Discharge Date: 11/10/16 Disposition: Home, Self-Care Condition: Good Prescriptions: New Amoxicillin/Potassium Clav [Augmentin Xr 1,000-62.5 Tab] 1 each PO BID #8 tab.er.12h Hydrocodone Bit/Acetaminophen [[place] 5-325 Tablet] 1 each PO TID PRN #10 tablet PRN Reason: Pain Continue Isosorbide Mononitrate 30 mg [Imdur 30 MG] 30 mg PO HS Cyanocobalamin (Vitamin B-12) [Vitamin B-12] 1,000 mcg PO UD Promethazine HCl 25 mg [Phenergan 25 mg] 25 mg PO Q4-6HPRN PRN #12 tablet PRN Reason: nausea and vomiting Metformin HCl 1000 mg [Glucophage 1000 MG] 1,000 mg PO BID Aspirin [Aspirin EC] 81 mg PO DAILY #90 tablet. Omeprazole 40 mg PO DAILY #30 capsule. Imipramine HCl 75 mg HS Albuterol 2.5 mg/3 ml Neb [Proventil 2.5 mg/3 ml Neb] 2.5 mg IH Q4H PRN PRN Reason: asthma Albuterol Common Canister [Proventil Common Canister] 2 puff IH Q4H PRN PRN Reason: Asthma Discontinued Lisinopril 10 mg [Zestril 10 MG] 10 mg PO HS Insulin Lispro [Humalog] 2 units SQ TID Carvedilol 3.125 mg [Coreg 3.125 MG] 3.125 mg BID Follow up with: SINCERE LEHMAN [Primary Care Provider] -
[2016-11-10 11:52] VITALS: BP 161/80; PULSE 62; O2SAT 98
--- NOTE | 2016-11-12 12:56 | DS ---
DISCHARGE DIAGNOSES: 1) DIVERTICULITIS. 2) DIABETES MELLITUS TYPE 2. 3) HYPOTENSION. DISCHARGE PHYSICAL EXAMINATION: VITALS: Temperature current 97.6F, temperature max 98.2F, heart rate 55 to 56, respiratory rate 14 to 18, blood pressure 132 to 134 over 74 to 83, weight 117.8 kg. Oxygen saturation 99% on room air. GENERAL: The patient is a pleasant lady lying in bed in no acute distress. CVS: She has a regular rate and rhythm. No murmurs, gallops or rubs. CHEST: Clear to auscultation bilaterally. No crackles or wheezes. ABDOMEN: Mild tenderness in epigastric area and left lower quadrant, normal bowel sounds. No guarding. No rigidity. EXTREMITIES: No clubbing, cyanosis or edema. SKIN: Warm, dry and intact. HOSPITAL COURSE: 1) DIVERTICULITIS: She was admitted with abdominal pain and had a CT scan that was concerning for diverticulitis. She was started on Zosyn the evening of 11/06/2016 and this was continued during her hospitalization. I will plan to finish out four more days of Augmentin extended release 1 tablet p.o. b.i.d. 2) DIABETES MELLITUS TYPE 2: She was on a sliding scale here. Her Metformin was held, will restart 2 units of insulin with her meals and the Metformin at home. 3) HYPOTENSION: She was given normal saline boluses of fluids during her hospitalization. Her hypotension has resolved. She has not been restarted on her antihypertensive. She may restart her Imdur but we are going to have her not restart her carvedilol or lisinopril at this time and she will need to follow up with Dr. Chong about her blood pressure. DISCHARGE MEDICATIONS: Please see the discharge order. DISPOSITION: The patient was discharged to home in fair condition.
== END 2016-11-10 12:40 | disposition home or self-care (01) | DRG 392 ==
LOC: ED 01:21 → UNDOADMOB 04:56 → MED SURG 04:56 → OBSVTOIN 11-08 07:49 → INTOOBSV 11-08 07:49 → UNDODISIN 11-10 12:40
PROVIDERS: ADMIT Family Medicine; ATTEND Family Medicine
DX: K57.32 Diverticulitis of large intestine without perforation or abscess without bleeding (principal); E11.9 Type 2 diabetes mellitus without complications; Z79.4 Long term (current) use of insulin; I95.9 Hypotension, unspecified; Z98.84 Bariatric surgery status; I10 Essential (primary) hypertension; J45.909 Unspecified asthma, uncomplicated; K21.9 Gastro-esophageal reflux disease without esophagitis; E66.9 Obesity, unspecified; F41.8 Other specified anxiety disorders; I34.1 Nonrheumatic mitral (valve) prolapse; R10.9 Unspecified abdominal pain; R19.7 Diarrhea, unspecified; E86.0 Dehydration; E87.6 Hypokalemia; Z79.899 Other long term (current) drug therapy
CPT/HCPCS: 36000; 36415; 74178; 80048; 80053; 82150; 82962; 83036; 83605; 83690; 83735; 84484; 85025; 93005; 93268; 94760; 96360; 96361; 96374; 96375; 99285; G0378; J2270; J2405; J2543; J2550; J3010; J3475

== ENCOUNTER 2017-02-18 22:03 | Observation (INO) | payer OTHER ==
[2017-02-18] MEDS ORDERED: Sodium Chloride 0.9% 1000 ML 1,000 ML IV SCH (22:15)
[2017-02-18] MEDS ORDERED: D50W 50 ml Abboject IV ONE ×2 (22:15→22:17)
[2017-02-18] MEDS ORDERED: Zofran 4 MG/2 ML VIAL IV ONE (22:15)
[2017-02-18] MEDS ORDERED: Sodium Chloride 0.9% 1000 ML 1,000 ML ONE ×2 (22:17→23:51)
[2017-02-18] MEDS ORDERED: Zofran 4 MG/2 ML VIAL ONE ×2 (22:17→23:51)
[2017-02-18] MEDS: Sodium Chloride 0.9% 1000 ML 1,000 ML IV STA ×2 (22:22→23:53)
[2017-02-18 22:25] LABS: BASOPHIL % 0.2 % (0.0-0.4); Eosinophil % 3.6 % (0.00-5.0); Granulocytes % 50.5 % (36.0-66.0); Lymphocytes % 36.6 % (24.0-44.0); Mean Cell Volume 89.5 fl (78-100); Mean Platelet Volume 11.7 fl (6-9.5); Monocytes % 9.1 % (0.0-12.0); Platelet Count 244 K/mm3 (150-450); Red Blood Count 5.14 M/mm3 (4.1-5.4); Red Cell Distribution Width 13.3 % (11.5-14.0)
[2017-02-18 22:45] LABS: ALBUMIN 3.6 g/dL (3.4-5.0); ALKALINE PHOSPHATASE 80 U/L (46-116); ANION GAP 14.1 MEQ/L (5-15); BLOOD UREA NITROGEN 13 mg/dL (9-20); CHLORIDE 107 mEq/L (98-107); Carbon Dioxide 24.6 mEq/L (21-32); Glucose 53 MG/DL (70-110); Potassium 3.3 mEq/L (3.5-5.1); SGOT/AST 12 U/L (15-37); SODIUM 142 mEq/L (136-145); Total Protein 7.2 gm/dL (6.4-8.2)
--- NOTE | 2017-02-18 22:53 | ERPHSYRPT ---
- History of Present Illness Time Seen by Provider: 02/18/17 22:26 Historian: patient Exam Limitations: clinical condition Patient Subjective Stated Complaint: LOW BLOOD SUAGR OF 40. C/O ABD PAIN. CHANGED ONCE A WEEK INSULIN SHOT TO TRUCILITY WHICH IS ONCE EVERY FRIDAY. Triage Nursing Assessment: PT SLEEPY BUT WAKES WHEN SPOKEN TO. PT COOL AND CLAMY. RESPIRATIONS EVEN AND UNLABORED. Physician History: PATIENT WITH HISTORY OF TYPE 2 DIABETES, HYPERTENSION, MITRAL VALVE PROLAPSE, HISTORY OF COLITIS, COMPLAINS OF NAUSEA WITH EMESIS X 4 DAYS ASSOCIATED WITH WATERY DIARRHEA X 7 EPISODES TODAY. STATES HER BLOOD GLUCOSE IS LOW IN THE 40'S TODAY. HAS ASSOCIATED ABDOMINAL PAIN TODAY. DENIES FEVER OR CHILLS. Timing/Duration: day(s) Activities at Onset: none Quality: cramping Abdominal Pain Onset Location: generalized abdomen Pain Radiation: no radiation Severity of Pain-Max: moderate Severity of Pain-Current: mild Modifying Factors: Improves With: vomiting, other (DIARRHEA) Associated Symptoms: diarrhea, nausea, other (LOW BLOOD GLUCOSE) Allergies/Adverse Reactions: flurbiprofen [From Ansaid] Allergy (Severe, Verified 11/06/16 09:37) Swelling she can take other nsaids morphine Adverse Reaction (Intermediate, Verified 11/06/16 09:37) Itching "I've never been told im allergic to to it but it makes me itch and i don't like how it makes me feel" Home Medications: Cyanocobalamin (Vitamin B-12) [Vitamin B-12] 1,000 mcg PO 01/13/15 [History] Isosorbide Mononitrate 30 mg [Imdur 30 MG] 30 mg PO 01/13/15 [History] Metformin HCl 1000 mg [Glucophage 1000 MG] 500 mg PO DAILY 04/07/16 [History] Imipramine HCl 75 mg 10/03/16 [History] Albuterol 2.5 mg/3 ml Neb [Proventil 2.5 mg/3 ml Neb] 2.5 mg IH Q4H PRN [History] Albuterol Common Canister [Proventil Common Canister] 2 puff IH Q4H PRN [History] Carvedilol 3.125 mg [Coreg 3.125 MG] 3.125 mg PO DAILY 02/18/17 [History] Lisinopril 20 mg PO DAILY 02/18/17 [History] Hx Tetanus, Diphtheria Vaccination/Date Given: No Hx Influenza Vaccination/Date Given: Yes Hx Pneumococcal Vaccination/Date Given: Yes (2015) Immunizations Up to Date: Yes - Review of Systems Constitutional: Weakness, No Fever, No Chills Eyes: No Symptoms Ears, Nose, & Throat: No Symptoms Respiratory: No Symptoms, No Cough, No Dyspnea Cardiac: No Symptoms, No Chest Pain, No Edema, No Syncope Abdominal/Gastrointestinal: Abdominal Pain, Nausea, Vomiting, Diarrhea Genitourinary Symptoms: No Symptoms, No Dysuria Musculoskeletal: No Symptoms, No Back Pain, No Neck Pain Skin: No Symptoms, No Rash Neurological: No Dizziness, No Focal Weakness, No Sensory Changes Psychological: No Symptoms Endocrine: No Symptoms All Other Systems: Reviewed and Negative - Past Medical History Pertinent Past Medical History: Yes Neurological History: Migraines, Other ENT History: No Pertinent History Cardiac History: Hypertension Respiratory History: Asthma Endocrine Medical History: Diabetes Type II Musculoskeletal History: No Pertinent History GI Medical History: Colitis, Diverticulosis, GERD, Gallbladder Disease History: No Pertinent History Psycho-Social History: Depression, Anxiety Female Reproductive Disorders: Menstrual Problems Other Medical History: TYPE II DM, MVP, VERTIGO - Past Surgical History Past Surgical History: Yes Neuro Surgical History: No Pertinent History Cardiac: Cardiac Catheterization Respiratory: No Pertinent History Gastrointestinal: Other, Cholecystectomy Genitourinary: No Pertinent History, Other Musculoskeletal: No Pertinent History Female Surgical History: Section, Hysterectomy, Tubal Ligation, Other Other Surgical History: Gastric Bypass 2009; Kidney balloon as child; Uteral ablation. UPDATED 06/11/15 - Social History Smoking Status: Current every day smoker How long have you smoked: 10 Exposure to second hand smoke: Yes Alcohol Use: None Drug Use: none Patient Lives Alone: No - Female History Hx Now: No - Nursing Vital Signs Nursing Vital Signs: Initial Vital Signs Pulse Rate 64 Respiratory Rate 18 Blood Pressure [Right Arm] 141/79 Pain Intensity 6 - Physical Exam General Appearance: no apparent distress, alert Eye Exam: PERRL/EOMI, eyes nml inspection Ears, Nose, Throat Exam: normal ENT inspection, pharynx normal, moist mucous membranes Neck Exam: normal inspection, non-tender, supple, full range of motion Respiratory Exam: normal breath sounds, lungs clear, No respiratory distress Cardiovascular Exam: regular rate/rhythm, normal heart sounds Gastrointestinal/Abdomen Exam: soft, normal bowel sounds, tenderness (THERE IS MINIMAL PERIUMBILICAL TENDERNESS, NO GUARDING OR REBOUND TENDERNESS), No mass Back Exam: normal inspection, normal range of motion, No CVA tenderness, No vertebral tenderness Extremity Exam: normal inspection, normal range of motion, pelvis stable Neurologic Exam: alert, oriented x 3, cooperative, normal mood/affect, nml cerebellar function, sensation nml, No motor deficits Skin Exam: normal color, warm, dry SpO2 Interpretation: normal SpO2: 97 Oxygen Delivery: Room Air - Course EKG Interpreted by Me: RATE, Sinus Rhythm, NORMAL AXIS Ordered Tests: Active Orders 24 hr Category Date Time Status Bedrest with BRP/BSC ROUTINE Activity 02/19/17 01:40 Active ACCUCHECK [Accucheck] STAT Care 02/19/17 00:02 Active Accucheck Q6H Care 02/19/17 01:38 Active Admission/Status Order ROUTINE Care 02/19/17 01:38 Active Call Admit Doctor for Orders ON ADMISSION Care 02/19/17 01:40 Active Code Status Order ROUTINE Care 02/19/17 01:38 Active EKG-ER Only STAT Care 02/18/17 22:14 Active IV Care Q6H Care 02/19/17 01:38 Active IV Insertion STAT Care 02/18/17 22:14 Active IV Insertion STAT Care 02/18/17 22:14 Active Intake and Output Q12H Care 02/19/17 01:38 Active Orthostatic Vital Signs STAT Care 02/18/17 22:19 Active Telemetry ROUTINE Care 02/19/17 01:38 Active Vital Signs Q4H Care 02/19/17 01:38 Active Clear Liquid Diet 02/19/17 Breakfast Active CBC W DIFF Stat Lab 02/18/17 22:15 Completed CMP Stat Lab 02/18/17 22:15 Completed Occult Blood,Stool Other Stat Lab 02/18/17 22:42 Uncollected Oxygen NASAL CANNULA 2 lpm RT 02/19/17 01:38 Active Transfer Order Routine Transfer 02/19/17 01:33 Ordered Medication Summary Generic Name Dose Route Start Last Admin Trade Name Freq PRN Reason Stop Dose Admin Acetaminophen 650 mg 02/19/17 01:38 Tylenol 325 Mg PO 03/21/17 01:37 Q4H PRN PRN PAIN AND/OR FEVER Albuterol/Ipratropium 3 ml 02/19/17 01:38 Duoneb 0.5-3 Mg/3 Ml Neb IH 03/21/17 01:37 Q4HPRN PRN SHORTNESS OF BREATH/WHEEZING Potassium Chloride/Dextrose/Sod Cl 1,000 mls @ 100 mls/hr 02/19/17 02:00 D5w/0.45ns W/ 20meq Kcl 1000 Ml IV 03/21/17 01:59 .Q10H SISI Pantoprazole Sodium 40 mg 02/19/17 10:00 Protonix 40 Mg Iv IV 03/21/17 09:59 Q24H10 SISI Discontinued Medications Generic Name Dose Route Start Last Admin Trade Name Freq PRN Reason Stop Dose Admin Dextrose 50 ml 02/18/17 22:15 02/18/17 22:22 D50w 50 Ml Abboject IV 02/18/17 22:16 50 ml STAT ONE Administration Dextrose Confirm 02/18/17 22:17 D50w 50 Ml Abboject Administered 02/18/17 22:18 Dose 50 ml IV .STK-MED ONE Fentanyl Citrate 100 mcg 02/18/17 23:50 02/18/17 23:53 Sublimaze 100 Mcg/2 Ml IV 02/18/17 23:51 100 mcg STAT ONE Administration Fentanyl Citrate Confirm 02/18/17 23:51 Sublimaze 100 Mcg/2 Ml Administered 02/18/17 23:52 Dose 100 mcg .ROUTE .STK-MED ONE Sodium Chloride 1,000 mls @ 200 mls/hr 02/18/17 22:15 02/18/17 22:23 Sodium Chloride 0.9% 1000 Ml IV 03/20/17 22:14 Not Given .Q5H SISI Sodium Chloride 1,000 mls @ 500 mls/hr 02/18/17 22:18 02/18/17 23:53 Sodium Chloride 0.9% 1000 Ml IV 02/19/17 00:17 500 mls/hr .Q2H STA Administration Sodium Chloride Confirm 02/18/17 22:17 Sodium Chloride 0.9% 1000 Ml Administered 02/18/17 22:18 Dose 1,000 mls @ ud .ROUTE .STK-MED ONE Sodium Chloride Confirm 02/18/17 23:51 Sodium Chloride 0.9% 1000 Ml Administered 02/18/17 23:52 Dose 1,000 mls @ ud .ROUTE .STK-MED ONE Ondansetron HCl 4 mg 02/18/17 22:15 02/18/17 22:22 Zofran 4 Mg/2 Ml Vial IV 02/18/17 22:16 4 mg STAT ONE Administration Ondansetron HCl Confirm 02/18/17 22:17 Zofran 4 Mg/2 Ml Vial Administered 02/18/17 22:18 Dose 4 mg .ROUTE .STK-MED ONE Ondansetron HCl Confirm 02/18/17 23:51 Zofran 4 Mg/2 Ml Vial Administered 02/18/17 23:52 Dose 4 mg .ROUTE .STK-MED ONE Lab/Rad Data: Laboratory Result Diagrams 02/18/17 22:15 02/18/17 22:15 Laboratory Results 02/18/17 02/18/17 Range/Units 22:15 22:15 WBC 12.0 H (4.0-10.5) K/mm3 RBC 5.14 (4.1-5.4) M/mm3 Hgb 14.9 (12.0-16.0) gm/dl Hct 46.0 (35-47) % MCV 89.5 (78-100) fl MCH 29.0 (26-32) pg MCHC 32.4 (32-36) g/dl RDW 13.3 (11.5-14.0) % Plt Count 244 (150-450) K/mm3 MPV 11.7 H (6-9.5) fl Gran % 50.5 (36.0-66.0) % Lymphocytes % 36.6 (24.0-44.0) % Monocytes % 9.1 (0.0-12.0) % Eosinophils % 3.6 (0.00-5.0) % Basophils % 0.2 (0.0-0.4) % Basophils # 0.02 (0-0.4) Sodium 142 (136-145) mEq/L Potassium 3.3 L (3.5-5.1) mEq/L Chloride 107 (98-107) mEq/L Carbon Dioxide 24.6 (21-32) mEq/L Anion Gap 14.1 (5-15) MEQ/L BUN 13 (9-20) mg/dL Creatinine 0.85 (0.55-1.30) mg/dl Estimated GFR > 60 ML/MIN Glucose 53 L (70-110) MG/DL Calcium 8.9 (8.5-10.1) mg/dL Total Bilirubin 0.20 (0.2-1.0) mg/dL AST 12 L (15-37) U/L ALT 13 (12-78) U/L Alkaline Phosphatase 80 (46-116) U/L Serum Total Protein 7.2 (6.4-8.2) gm/dL Albumin 3.6 (3.4-5.0) g/dL - Progress Progress Note: 02/18/17 22:54 PATIENT GIVEN 1 AMP D50 IVP, IV NORMAL SALINE 500ML/HR 02/19/17 00:28 REPEAT ACCUCHECK 101 Discussed with : Castillo (DISCUSSED WITH DR LEHMAN AT 0100 FOR OBSERVATION) Counseled pt/family regarding: lab results, diagnosis, need for follow-up - Departure Time of Disposition: 01:40 Departure Disposition: Observation Clinical Impression: HYPOGLYCEMIA, INTRACTABLE EMESIS AND DIARRHEA, Dizziness Condition: Stable Critical Care Time: No Referrals: SINCERE LEHMAN [Primary Care Provider] -
[2017-02-18 23:19] LABS: SGPT/ALT 13 U/L (12-78)
[2017-02-18] MEDS ORDERED: SUBLIMAZE 100 MCG/2 ML IV ONE (23:50)
[2017-02-18] MEDS ORDERED: SUBLIMAZE 100 MCG/2 ML ONE (23:51)
[2017-02-19] MEDS ORDERED: TYLENOL 325 MG PO PRN (01:38)
[2017-02-19] MEDS ORDERED: DUONEB 0.5-3 MG/3 ml Neb IH PRN (01:38)
[2017-02-19] MEDS ORDERED: Dextrose 5% -0.45 NaCl 1000 ML 1,000 ML IV ONE (02:14)
[2017-02-19] MEDS ORDERED: PROVENTIL 2.5 MG/3 ML NEB IH PRN (02:26)
[2017-02-19] MEDS ORDERED: PROVENTIL COMMON CANISTER IH PRN (02:26)
[2017-02-19] MEDS: D5W/0.45NS W/ 20mEq KCl 1000 ML 1,000 ML IV SCH ×4 (02:36→22:56)
--- NOTE | 2017-02-19 08:29 | PCM.HP ---
History of Present Illness - Chief Complaint Chief Complaint: HYPOGLYCEMIA History of Present Illness: is a 41 year old female pt of mine from [facility] with Type II DM who c/o 4d of vomiting and diarrhea with periumbilical pain. Pain was 9.5/10 and radiated up to epigastrum. Diarrhea was watery and black. Fever of 100.4 at home. She came to ER and received IV fluids. Has had no vomiting or diarrhea since then. Pain is 6/10; was initially helped by pain meds in ER but since then was given tylenol with no relief. Also c/o being very stressed recently, depressed and crying a lot, and vague thoughts of suicidal ideation. - Review of Systems Constitutional: Fever, Weakness Abdominal/Gastrointestinal: Abdominal Pain, Nausea, Vomiting, Diarrhea, Melena, Appetite Changes Psychological: Depression, No Suicidal Ideations Medications & Allergies Home Medications: Home Medication List Cyanocobalamin (Vitamin B-12) [Vitamin B-12] 1,000 mcg IM UD 01/13/15 [History Confirmed 02/19/17] Isosorbide Mononitrate 30 mg [Imdur 30 MG] 30 mg PO HS 01/13/15 [History Confirmed 02/18/17] Promethazine HCl 25 mg [Phenergan 25 mg] 25 mg PO Q4-6HPRN PRN #12 tablet 09/06/15 [Rx Confirmed 02/18/17] Metformin HCl 1000 mg [Glucophage 1000 MG] 500 mg PO DAILY 04/07/16 [History Confirmed 02/18/17] Aspirin [Aspirin EC] 81 mg PO DAILY #90 tablet. 06/20/16 [Rx Confirmed ] Imipramine HCl 75 mg HS 10/03/16 [History Confirmed 02/18/17] Albuterol 2.5 mg/3 ml Neb [Proventil 2.5 mg/3 ml Neb] 2.5 mg IH Q4H PRN [History Confirmed 02/18/17] Albuterol Common Canister [Proventil Common Canister] 2 puff IH Q4H PRN [History Confirmed 02/18/17] Carvedilol 3.125 mg [Coreg 3.125 MG] 3.125 mg PO DAILY 02/18/17 [History Confirmed 02/18/17] Lisinopril 20 mg PO DAILY 02/18/17 [History Confirmed 02/18/17] Gabapentin 300 mg PO HS 02/19/17 [History Confirmed 02/19/17] Meclizine HCl 12.5 - 25 mg PO TIDPRN 02/19/17 [History Confirmed 02/19/17] Omeprazole 40 mg PO DAILY PRN PRN 02/19/17 [History Confirmed 02/19/17] Allergies/Adverse Reactions: Allergies Allergy/AdvReac Type Severity Reaction Status Date / Time flurbiprofen [From Ansaid] Allergy Severe Swelling Verified 11/06/16 09:37 morphine AdvReac Intermediate Itching Verified 11/06/16 09:37 - Past Medical History Past Medical History: Yes Neurological History: Migraines, Other ENT History: No Pertinent History Cardiac History: Hypertension Respiratory History: Asthma Endocrine Medical History: Diabetes Type II Musculoskelatal History: No Pertinent History GI Medical History: Colitis, Diverticulosis, GERD, Gallbladder Disease History: No Pertinent History Pyscho-Social History: Depression, Anxiety Reproductive Disorders: Menstrual Problems Comment: TYPE II DM, MVP, VERTIGO - Female History Are you now?: No - Past Surgical History Past Surgical History: Yes Neuro Surgical History: No Pertinent History Cardiac History: Cardiac Catheterization Respiratory Surgery: No Pertinent History GI Surgical History: Other, Cholecystectomy Genitourinary Surgical Hx: No Pertinent History, Other Musculskeletal Surgical Hx: No Pertinent History Female Surgical History: Section, Hysterectomy, Tubal Ligation, Other Other Surgical History: Gastric Bypass 2009; Kidney balloon as child; Uteral ablation. UPDATED 02/19/17 - Social History Smoking Status: Current every day smoker How long have you smoked: 10 Exposure to second hand smoke: Yes Alcohol: None Drug Use: none - Physical Exam Vital Signs: Vital Signs - 24 hr Temp Pulse Resp BP Pulse Ox 02/19/17 08:00 16 02/19/17 07:28 97.8 F 62 17 143/86 99 02/19/17 07:16 64 16 96 02/19/17 04:13 98.0 F 57 L 17 143/83 96 02/19/17 03:45 97.9 F 64 18 124/78 98 02/19/17 02:20 64 16 95 06/21/17 02:17 97.9 F 62 18 124/78 98 02/19/17 02:00 16 02/19/17 01:54 97 02/19/17 00:13 64 18 141/79 97 02/18/17 23:39 84 20 158/92 99 02/18/17 22:53 84 20 148/99 98 02/18/17 22:42 64 18 141/79 97 02/18/17 22:03 84 22 157/82 97 General Appearance: mild distress Neurologic Exam: alert, oriented x 3, cooperative Eye Exam: eyes nml inspection Neck Exam: normal inspection, non-tender, No lymphadenopathy Respiratory Exam: normal breath sounds, lungs clear, No crackles/rales, No rhonchi, No wheezing Cardiovascular Exam: regular rate/rhythm, normal heart sounds, No murmur Gastrointestinal/Abdomen Exam: soft, normal bowel sounds, tenderness (mild, periumbilical), No distention, No mass Back Exam: normal inspection, No CVA tenderness Extremity Exam: No pedal edema, No swelling Skin Exam: normal color, warm, dry Results - Labs Lab/Micro Results: Accuchecks Date 02/19/17 Time 05:33 Accucheck Value: 86 Accuchecks Date 02/19/17 Time 05:33 Accucheck Value: 86 - Other Procedures and Tests Respiratory Therapy 02/19/17 01:38 Oxygen NASAL CANNULA 2 lpm 02/19/17 02:26 Respiratory MDI PRN Respiratory Nebulizer PRN Assessment/Plan (1) Abdominal pain Current Visit: No Status: Acute Qualifiers: Abdominal location: periumbilical Qualified Code(s): R10.33 - Periumbilical pain Assessment & Plan: will observe, on IV fluids, pain meds. Exam is benign. She did just have her second dose of Trulicity yesterday, and abdominal pain, vomiting, and diarrhea are known side effects; I have advised her to stop the Trulicity. She is following up with Dr. Ireland in 2d. Code(s): R10.9 - UNSPECIFIED ABDOMINAL PAIN (2) Diarrhea Current Visit: No Status: Acute Qualifiers: Diarrhea type: unspecified type Qualified Code(s): R19.7 - Diarrhea, unspecified Assessment & Plan: Better with IV fluids. Code(s): R19.7 - DIARRHEA, UNSPECIFIED (3) Vomiting Current Visit: No Status: Acute Qualifiers: Vomiting type: unspecified Assessment & Plan: better since admission. If feeling better can advance diet and possibly d/c home today or tomorrow. Code(s): R11.10 - VOMITING, UNSPECIFIED (4) Diabetes mellitus type 2 in obese Current Visit: No Status: Acute Assessment & Plan: Hold metformin while here. Code(s): E11.9 - TYPE 2 DIABETES MELLITUS WITHOUT COMPLICATIONS; E66.9 - OBESITY , UNSPECIFIED
[2017-02-19] MEDS ORDERED: NON-FORMULARY ITEM (Omeprazole [Omeprazole] 40 MG) PO PRN (08:54)
[2017-02-19] MEDS ORDERED: ANTIVERT 25 MG PO PRN (08:59)
[2017-02-19] MEDS ORDERED: NON-FORMULARY ITEM (Meclizine Hcl [Meclizine Hcl] 12.5 MG) PO SCH (09:00)
[2017-02-19] MEDS ORDERED: Protonix 40MG Tablet PO PRN (09:00)
[2017-02-19] MEDS: Imdur 30 MG PO SCH (09:36)
[2017-02-19] MEDS: ECOTRIN 81 MG PO SCH (09:37)
[2017-02-19] MEDS: Zestril 20 MG PO SCH (09:37)
[2017-02-19] MEDS: ENOXAPARIN SODIUM SQ SCH (09:37)
[2017-02-19] MEDS: Wellbutrin XL 150 MG PO SCH (09:37)
[2017-02-19] MEDS: SUBLIMAZE 100 MCG/2 ML IV PRN ×2 (09:42→15:58)
[2017-02-19] MEDS ORDERED: PROTONIX 40 MG IV IV SCH (10:00)
[2017-02-19] MEDS: Coreg 3.125 MG PO SCH (13:03)
[2017-02-19] MEDS ORDERED: OXYCODONE-ACETAMINOPHEN 10-325 PO PRN (16:44)
[2017-02-19] MEDS ORDERED: IMIPRAMINE HCL PO SCH (22:00)
[2017-02-19] MEDS ORDERED: NEURONTIN 300 MG PO SCH (22:00)
[2017-02-20 07:20] VITALS: O2SAT 96
[2017-02-20 07:24] VITALS: BP 135/85; PULSE 58
--- NOTE | 2017-02-20 08:27 | PCM.DS ---
Discharge Summary Date of Admission: 02/19/17 02:08 Admitting Physician: SINCERE LEHMAN Primary Care Provider: SINCERE LEHMAN Allergies Allergies flurbiprofen [From Ansaid] Allergy (Severe, Verified 11/06/16 09:37) Swelling she can take other nsaids morphine Adverse Reaction (Intermediate, Verified 11/06/16 09:37) Itching "I've never been told im allergic to to it but it makes me itch and i don't like how it makes me feel" Hospital Summary - Hospital Course Hospital Course: Pt was admitted through the ER with abdominal pain, vomiting, and diarrhea. She stopped vomiting and having bowel movements after admission. Diet was advanced and she is on a regular diet this morning with no more than her usual nausea. She is still having 4-5/10 abdominal pain, thought to be related to the Trulicity she began 1.5 wks ago. - Vitals & Intake/Output Vital Signs: Vital Signs Temperature 97.9 F 02/20/17 07:22 Pulse Rate 58 L 02/20/17 07:22 Respiratory Rate 18 02/20/17 07:22 Blood Pressure 135/85 02/20/17 07:22 O2 Sat by Pulse Oximetry 96 02/20/17 07:22 Intake & Output: Intake & Output 02/17/17 02/18/17 02/19/17 02/20/17 11:59 11:59 11:59 11:59 Intake Total 671 3151 Balance 671 3151 Weight 117.435 kg - Lab Result Diagrams: 02/18/17 22:15 02/18/17 22:15 Lab Results-Last 24 Hrs: Accuchecks Date 02/20/17 Date 02/20/17 Date 02/19/17 Date 02/19/17 Time 05:41 Time 00:00 Time 12:00 Time 12:00 Accucheck Value: 87 Accucheck Value: 89 Accucheck Value: 79 Accucheck Value: 91 Lab Results-Last 24 Hours 02/19/17 Range/Units 14:30 Hemoglobin A1c 5.2 (4.5-6.2) Micro Results-Entire Visit: Accuchecks Date 02/20/17 Date 02/20/17 Date 02/19/17 Date 02/19/17 Time 05:41 Time 00:00 Time 12:00 Time 12:00 Accucheck Value: 87 Accucheck Value: 89 Accucheck Value: 79 Accucheck Value: 91 - Procedures and Test Procedures and Tests throughout Hospitalization: Therapy Orders & Screens 02/19/17 01:38 Oxygen NASAL CANNULA 2 lpm Comment: 02/19/17 02:26 Respiratory MDI PRN Comment: ALBUTEROL 2 PUFFS Q4HPRN FOR SOB/WHEEZING Diagnosis: HYPOGLYCEMIA Respiratory Nebulizer PRN Comment: ALBUTEROL Q4PRN FOR SOB/WHEEZING Diagnosis: HYPOGLYCEMIA 02/19/17 02:27 Respiratory Therapy Consult ROUTINE Comment: Reason For Exam: Diagnosis: HYPOGLYCEMIA 02/19/17 02:48 RT Screen per Nursing Assess ONCE Comment: Protocol Order Physician Instructions: Greater than 3 points order RT Admission Screen Reason For Exam: Triggered on Admission Diagnosis: HYPOGLYCEMIA Diagnosis: HYPOGLYCEMIA Pneumonia: Yes Home O2: No Asthma: Yes CHF: No Home CPAP/BIPAP: No Home Nebs/MDI: No Total Points: 7 Smoking Cessation Education ONCE Comment: Diagnosis: HYPOGLYCEMIA Smoking Status: Current every day smoker How long have you smoked: 10 Have you smoked in the past 12 months: Yes Approximately how many cigarettes per day: 1/2 pack Do you dip or chew tobacco: No If,Former Smoker,when did you quit: 09/01/2015 Discharge Exam General Appearance: no apparent distress Neurologic Exam: alert, oriented x 3, cooperative Skin Exam: normal color, warm, dry Eye Exam: eyes nml inspection Respiratory Exam: normal breath sounds, lungs clear, No crackles/rales, No rhonchi, No wheezing Cardiovascular Exam: regular rate/rhythm, normal heart sounds, No murmur Gastrointestinal/Abdomen Exam: soft, normal bowel sounds, tenderness (very mild periumbilical tenderness), No distention, No mass Extremity Exam: No pedal edema, No swelling Back Exam: normal inspection Final Diagnosis/Problem List - Final Discharge Diagnosis/Problem (1) Abdominal pain Current Visit: No Status: Acute Assessment & Plan: I think the etiology is due to the Trulicity injection. Should improve over the next 2-3 days. Exam is benign. Already has improved and pt is able to tolerate po and not having diarrhea. Will recheck labs and send her home. Discussed with pt that she needs to return with any worsening of pain. (2) Diarrhea Current Visit: No Status: Resolved (3) Vomiting Current Visit: No Status: Resolved (4) Diabetes mellitus type 2 in obese Current Visit: No Status: Chronic Assessment & Plan: Seeing endocrinology tomorrow. BS 79-101 here. - Discharge Disposition: Home, Self-Care Condition: Stable Prescriptions: New Hydrocodone Bit/Acetaminophen [[place] 10-325 Tablet] 1 each PO TID PRN #9 tablet PRN Reason: Pain Continue Isosorbide Mononitrate 30 mg [Imdur 30 MG] 30 mg PO HS Cyanocobalamin (Vitamin B-12) [Vitamin B-12] 1,000 mcg IM UD Promethazine HCl 25 mg [Phenergan 25 mg] 25 mg PO Q4-6HPRN PRN #12 tablet PRN Reason: nausea and vomiting Metformin HCl 1000 mg [Glucophage 1000 MG] 500 mg PO DAILY Aspirin [Aspirin EC] 81 mg PO DAILY #90 tablet. Imipramine HCl 75 mg HS Albuterol 2.5 mg/3 ml Neb [Proventil 2.5 mg/3 ml Neb] 2.5 mg IH Q4H PRN PRN Reason: asthma Albuterol Common Canister [Proventil Common Canister] 2 puff IH Q4H PRN PRN Reason: Asthma Lisinopril 20 mg PO DAILY Carvedilol 3.125 mg [Coreg 3.125 MG] 3.125 mg PO DAILY Omeprazole 40 mg PO DAILY PRN PRN PRN Reason: Stomach Upset Gabapentin 300 mg PO HS Meclizine HCl 12.5 - 25 mg PO TIDPRN Follow up with: SINCERE LEHMAN [Primary Care Provider] - 02/26/17 10:15 am Forms: Patient Portal Information
[2017-02-20 08:59] LABS: Mean Cell Volume 90.8 fl (78-100); Mean Platelet Volume 11.4 fl (6-9.5); Platelet Count 134 K/mm3 (150-450); Red Blood Count 4.48 M/mm3 (4.1-5.4); Red Cell Distribution Width 13.2 % (11.5-14.0); White Blood Count 4.4 K/mm3 (4.0-10.5)
[2017-02-20] MEDS: Imdur 30 MG PO SCH (09:12)
[2017-02-20] MEDS: Zestril 20 MG PO SCH (09:12)
[2017-02-20] MEDS: Coreg 3.125 MG PO SCH (09:12)
[2017-02-20] MEDS: ECOTRIN 81 MG PO SCH (09:12)
[2017-02-20] MEDS: Wellbutrin XL 150 MG PO SCH (09:13)
[2017-02-20] MEDS: ENOXAPARIN SODIUM SQ SCH (09:16)
[2017-02-20 09:39] LABS: BLOOD UREA NITROGEN 7 mg/dL (9-20); CHLORIDE 106 mEq/L (98-107); Carbon Dioxide 25.8 mEq/L (21-32); Glucose 203 MG/DL (70-110); SODIUM 140 mEq/L (136-145)
== END 2017-02-20 11:20 | disposition home or self-care (01) ==
LOC: ED 22:03 → MED SURG 02-19 02:08
PROVIDERS: ADMIT Family Medicine; ATTEND Family Medicine
DX: R10.33 Periumbilical pain (principal); R19.7 Diarrhea, unspecified; R11.10 Vomiting, unspecified; E11.9 Type 2 diabetes mellitus without complications; E66.9 Obesity, unspecified; F32.9 Major depressive disorder, single episode, unspecified; I10 Essential (primary) hypertension; J45.909 Unspecified asthma, uncomplicated; K21.9 Gastro-esophageal reflux disease without esophagitis; F41.9 Anxiety disorder, unspecified; Z72.0 Tobacco use
CPT/HCPCS: 36000; 36415; 80048; 80053; 82962; 83036; 85025; 85027; 90791; 93005; 93268; 94760; 96360; 96361; 96374; 96375; 99285; G0378; J1650; J2405; J3010; A9270-GY

== ENCOUNTER 2017-03-18 06:08 | Day surgery (SDC) | payer OTHER ==
[2017-03-18] MEDS ORDERED: Lactated Ringers 1,000 ML IV ONE ×2 (06:53→08:17)
[2017-03-18] MEDS ORDERED: Lactated Ringers 1,000 ML IV SCH (07:00)
[2017-03-18] MEDS ORDERED: DIPRIVAN 200 MG/20 ML IV ONE (08:00)
[2017-03-18] MEDS ORDERED: VERSED 5 MG/5 ML IV ONE (08:00)
[2017-03-18 09:56] VITALS: O2SAT 97
[2017-03-18 09:57] VITALS: BP 145/93; PULSE 61
--- NOTE | 2017-03-18 11:40 | OP ---
SURGERY DATE: 03/18/17 SURGERY TIME: 755 PREOPERATIVE DIAGNOSIS: 1. CHRONIC DIARRHEA. POSTOPERATIVE DIAGNOSIS: 1. NORMAL UPPER EXAM STATUS POST GASTRIC BYPASS. 2. COLONIC DIVERTICULOSIS. PROCEDURE: 1. Esophagogastroduodenoscopy with biopsy. 2. Colonoscopy with biopsy. SURGEON: Dr. Storm. ANESTHESIA: MAC, medications given by the Anesthesia Department. BRIEF HISTORY: The patient is a 41 y/o WF who reports she has had over 3 weeks of diarrhea with stools passing through her with several stools a day. She reports she was ill approximately 3 weeks ago and received a round of antibiotics. She was tested for Clostridium difficile which was negative. She reports a history of having previous colonoscopies with polyps being seen as well as diverticular disease. The patient was felt to need to have endoscopic evaluation. She appraised of the risks of the procedure including the risk of perforation, phlebitis, untoward reaction to medication, bleeding, and missed lesions. The patient verbalized her understanding and desired to have the procedure performed. DESCRIPTION OF PROCEDURE: The patient was given the medications by the Anesthesia Department. She had continuous pulse oximetry, ECG monitoring, intermittent BP monitoring, and end tidal CO2 monitoring during the examination. She was placed in the left lateral decubitus position. A bite block was placed and the flexible Olympus gastroscope was used to intubate the oropharynx. A view of the larynx was obtained and was normal. The scope was passed easily in the esophagus which appeared to be normal throughout its length. The stomach was mostly surgically absent. We were able to inspect the duodenum remnant. Biopsies were obtained to rule out the presence of celiac sprue, although the valves of [place] appeared to be essentially normal. The scope was then removed from the patient. Next, a digital rectal examination was performed and revealed normal anal sphincter tone and no masses. The flexible Olympus pediatric colonoscope was used to intubate the rectum. A view of the colon was developed sequentially to the cecum. Upon insertion and withdrawal, including a retroflex view in the rectum, was noted scattered colonic diverticula, but no mucosal lesions were otherwise encountered. Biopsies were obtained from approximately every 10 cm segments throughout the colon to rule out the presence of collagenous colitis. The scope was removed from the patient who tolerated the procedure well and was sent back to OP recovery in good condition. The prep was noted to be fair.
== END 2017-03-18 10:09 | disposition home or self-care (01) ==
LOC: SDC 06:08
PROVIDERS: ATTEND Family Medicine
PROC: 0DB88ZX Excision of Small Intestine, Via Natural or Artificial Opening Endoscopic, Diagnostic (ICD-10-PCS; principal; 2017-03-18)
PROC: 0DBE8ZX Excision of Large Intestine, Via Natural or Artificial Opening Endoscopic, Diagnostic (ICD-10-PCS; 2017-03-18)
DX: K57.90 Diverticulosis of intestine, part unspecified, without perforation or abscess without bleeding (principal); Z95.1 Presence of aortocoronary bypass graft
CPT/HCPCS: 00740; 00810; 36415; 88305; J2250; J2704

== ENCOUNTER 2018-10-14 21:41 | Emergency (ER) | payer OTHER ==
[2018-10-14] MEDS ORDERED: BABY ASPIRIN 81 MG CHEW PO ONE (21:50)
--- NOTE | 2018-10-14 21:50 | ERPHSYRPT ---
- History of Present Illness Time Seen by Provider: 10/14/18 21:49 Historian: patient Exam Limitations: no limitations Physician History: 43 y/o white female with h/o mvp presents with epigastric abd and cp. radiation to left shoulder. pt has had a gastric bypass surgery 2009 and cholecystectomy in past. pt has h/o pancreatitis, colitis, and diverticulitis. pt has appt with dr. lehman tomorrow. 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) Quality: sharpness Location: epigastric Severity of Pain-Max: moderate Severity of Pain-Current: moderate Modifying Factors: Improves With: nothing Associated Symptoms: nausea, abdominal pain Prior Chest Pain/Cardiac Workup: echocardiography Nitro Today/Relief: no nitro taken today Aspirin Treatment Today: 81 mg x 4 Allergies/Adverse Reactions: flurbiprofen [From Ansaid] Allergy (Severe, Verified 03/18/17 06:40) Swelling she can take other nsaids morphine Adverse Reaction (Intermediate, Verified 03/18/17 06:40) Itching "I've never been told im allergic to to it but it makes me itch and i don't like how it makes me feel" Home Medications: Cyanocobalamin (Vitamin B-12) [Vitamin B-12] 1,000 mcg IM UD 01/13/15 [History] Isosorbide Mononitrate 30 mg [Imdur 30 MG] 30 mg PO HS 01/13/15 [History] Metformin HCl 1000 mg [Glucophage 1000 MG] 500 mg PO DAILY 04/07/16 [History] Imipramine HCl 75 mg PO HS 10/03/16 [History] Albuterol Common Canister [Proventil Common Canister] 2 puff IH Q4H PRN [History] Carvedilol 3.125 mg [Coreg 3.125 MG] 3.125 mg PO BID 02/18/17 [History] Lisinopril 20 mg PO DAILY 02/18/17 [History] Meclizine HCl 12.5 - 25 mg PO TIDPRN 02/19/17 [History] Omeprazole 20 mg PO DAILY PRN PRN 02/19/17 [History] Dicyclomine HCl [Bentyl] 10 mg PO QIDPRN PRN 03/18/17 [History] Ergocalciferol (Vitamin D2) [Vitamin D] 50,000 unit PO UD 03/18/17 [History] Exenatide [Byetta Syringe] 0 mcg SQ WEEKLY 03/18/17 [History] Pregabalin [Lyrica] 75 mg PO BID 03/18/17 [History] Sucralfate 1 gm [Carafate 1 GM] 1 gm PO QID 03/18/17 [History] Hx Tetanus, Diphtheria Vaccination/Date Given: No Hx Influenza Vaccination/Date Given: Yes Hx Pneumococcal Vaccination/Date Given: Yes (2015) - Review of Systems Constitutional: No Symptoms Eyes: No Symptoms Ears, Nose, & Throat: No Symptoms Respiratory: No Symptoms Cardiac: Chest Pain Abdominal/Gastrointestinal: Abdominal Pain, Nausea, No Vomiting, No Diarrhea Genitourinary Symptoms: No Symptoms Musculoskeletal: No Symptoms Skin: No Symptoms Neurological: No Symptoms Psychological: No Symptoms Endocrine: No Symptoms Hematologic/Lymphatic: No Symptoms Immunological/Allergic: No Symptoms All Other Systems: Reviewed and Negative - Past Medical History Pertinent Past Medical History: Yes Neurological History: Migraines, Other ENT History: No Pertinent History Cardiac History: Angina, Hypertension, Other Respiratory History: Asthma Endocrine Medical History: Diabetes Type II Musculoskeletal History: Degenerative Disk Disease GI Medical History: Colitis, Diverticulosis, GERD, Gallbladder Disease History: Other Psycho-Social History: Depression, Anxiety Female Reproductive Disorders: Menstrual Problems Other Medical History: TYPE II DM," palpatations" MVP, VERTIGO. " black out spells" - Past Surgical History Past Surgical History: Yes Neuro Surgical History: No Pertinent History Cardiac: Cardiac Catheterization Respiratory: No Pertinent History Gastrointestinal: Other, Cholecystectomy Genitourinary: No Pertinent History, Other Musculoskeletal: No Pertinent History Female Surgical History: Section, Hysterectomy, Tubal Ligation, Other Other Surgical History: Gastric Bypass 2009; Kidney balloon as child; Uteral ablation. UPDATED 02/19/17 - Social History Smoking Status: Current every day smoker How long have you smoked: 10 Exposure to second hand smoke: Yes Alcohol Use: None Drug Use: none Patient Lives Alone: No - Nursing Vital Signs Nursing Vital Signs: Initial Vital Signs Pulse Rate 74 10/14/18 21:44 Respiratory Rate 20 10/14/18 21:44 Blood Pressure 142/85 10/14/18 21:44 O2 Sat by Pulse Oximetry 100 10/14/18 21:44 Pain Scale Pain Intensity 10 - Physical Exam General Appearance: moderate distress, alert, anxiety Eye Exam: PERRL/EOMI Ears, Nose, Throat Exam: normal ENT inspection, moist mucous membranes Neck Exam: normal inspection, non-tender, supple, full range of motion Respiratory Exam: normal breath sounds, chest tenderness, lungs clear, airway intact, No respiratory distress, No accessory muscle use, No rhonchi, No wheezing, No stridor Cardiovascular Exam: regular rate/rhythm, normal heart sounds, normal peripheral pulses Gastrointestinal/Abdomen Exam: soft, tenderness, guarding, rebound (epigastric) Pelvic Exam: not done Rectal Exam: not done Back Exam: normal inspection, normal range of motion, No CVA tenderness, No vertebral tenderness Extremity Exam: normal inspection Neurologic Exam: alert, oriented x 3, cooperative, 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 tested Skin Exam: normal color, warm, dry Lymphatic Exam: No adenopathy SpO2 Interpretation: normal O2 Delivery: Room Air - Course Nursing assessment & vital signs reviewed: Yes EKG Interpreted by Me: RATE (68), Sinus Rhythm, Left [place] Deviation, Other ( comparison ekg 02/18/17 new left axix deviation otherwise no changes.) Ordered Tests: Active Orders 24 hr Category Date Time Status Surfboard Maker STAT Care 10/14/18 21:52 Active EKG-ER Only STAT Care 10/14/18 21:50 Active IV Insertion STAT Care 10/14/18 21:50 Active Pulse Oximetry (ED) STAT Care 10/14/18 21:50 Active ABDOMEN AND PELVIS W/0 CONTRAS [CT] Stat Exams 10/14/18 22:20 Taken CHEST 1 VIEW (PORTABLE) Stat Exams 10/14/18 21:52 Taken AMYLASE Stat Lab 10/14/18 22:00 Completed CBC W DIFF Stat Lab 10/14/18 22:03 Completed CMP Stat Lab 10/14/18 22:03 Completed D-DIMER QUANTITATION Stat Lab 10/14/18 22:03 Completed LIPASE Stat Lab 10/14/18 22:00 Completed Lactic Acid Stat Lab 10/14/18 22:22 Ordered TROPONIN Q3H Lab 10/14/18 22:03 Completed TROPONIN Q3H Lab 10/15/18 01:00 Ordered TROPONIN Q3H Lab 10/15/18 04:00 Ordered TROPONIN Q3H Lab 10/15/18 07:00 Ordered TROPONIN Q3H Lab 10/15/18 10:00 Ordered Medication Summary Generic Name Dose Route Start Last Admin Trade Name Freq PRN Reason Stop Dose Admin Potassium Chloride 20 meq in 100 mls @ 50 mls/hr 10/14/18 23:50 10/15/18 00: 01 Potassium Chloride 20 Meq In Water 100ml IV 10/15/18 01:49 50 mls/hr STAT ONE Administration Sodium Chloride 1,000 mls @ 100 mls/hr 10/14/18 23:45 10/15/18 00:05 Sodium Chloride 0.9% 1000 Ml IV 11/13/18 23:44 100 mls/hr .Q10H SISI Administration Piperacillin Sod/Tazobactam Sod 3.375 gm in 100 mls @ 200 mls/hr 10/15/18 00: 08 Zosyn 3.375gm/100 Ml D5w IV 10/15/18 00:37 STAT STA Discontinued Medications Generic Name Dose Route Start Last Admin Trade Name Abhayq PRN Reason Stop Dose Admin Aspirin 324 mg 10/14/18 21:50 10/14/18 22:01 Baby Aspirin 81 Mg Chew PO 10/14/18 21:51 324 mg STAT ONE Administration Aspirin Confirm 10/14/18 22:01 Baby Aspirin 81 Mg Chew Administered 10/14/18 22:02 Dose 324 mg .ROUTE .STK-MED ONE Hydromorphone HCl 1 mg 10/14/18 22:18 10/14/18 22:25 Hydromorphone 1 Mg/Ml Ampule IV 10/14/18 22:19 1 mg STAT ONE Administration Hydromorphone HCl Confirm 10/14/18 22:24 Hydromorphone 1 Mg/Ml Ampule Administered 10/14/18 22:25 Dose 1 mg .ROUTE .STK-MED ONE Hydromorphone HCl 0.5 mg 10/14/18 23:48 10/15/18 00:00 Hydromorphone 1 Mg/Ml Ampule IV 10/14/18 23:49 0.5 mg STAT ONE Administration Hydromorphone HCl Confirm 10/14/18 23:53 Hydromorphone 1 Mg/Ml Ampule Administered 10/14/18 23:54 Dose 1 mg .ROUTE .STK-MED ONE Sodium Chloride Confirm 10/14/18 23:53 Sodium Chloride 0.9% 1000 Ml Administered 10/14/18 23:54 Dose 1,000 mls @ ud .ROUTE .STK-MED ONE Potassium Chloride Confirm 10/14/18 23:54 Potassium Chloride 20 Meq In Water 100ml Administered 10/14/18 23:55 Dose 100 mls @ ud IV .STK-MED ONE Ondansetron HCl 4 mg 10/14/18 22:18 10/14/18 22:25 Zofran 4 Mg/2 Ml Vial IV 10/14/18 22:19 4 mg STAT ONE Administration Ondansetron HCl Confirm 10/14/18 22:24 Zofran 4 Mg/2 Ml Vial Administered 10/14/18 22:25 Dose 4 mg .ROUTE .STK-MED ONE Lab/Rad Data: Laboratory Result Diagrams 10/14/18 22:03 10/14/18 22:03 Laboratory Results 10/14/18 10/14/18 10/14/18 Range/Units 22:03 22:03 22:03 WBC (4.0-10.5) K/mm3 RBC (4.1-5.4) M/mm3 Hgb (12.0-16.0) gm/dl Hct (35-47) % MCV (78-100) fl MCH (26-32) pg MCHC (32-36) g/dl RDW (11.5-14.0) % Plt Count (150-450) K/mm3 MPV (6-9.5) fl Gran % (36.0-66.0) % Eos # (Auto) (0-0.5) Absolute Lymphs (auto) (1.0-4.6) Absolute Monos (auto) (0.0-1.3) Lymphocytes % (24.0-44.0) % Monocytes % (0.0-12.0) % Eosinophils % (0.00-5.0) % Basophils % (0.0-0.4) % Absolute Granulocytes (1.4-6.9) Basophils # (0-0.4) D-Dimer 397 (215-500) ng/mL Sodium 139 (137-145) mmol/L Potassium 3.2 L (3.5-5.1) mmol/L Chloride 97 L (98-107) mmol/L Carbon Dioxide 34 H (22-30) mmol/L Anion Gap 11.5 (5-15) MEQ/L BUN 19 H (7-17) mg/dL Creatinine 0.77 (0.52-1.04) mg/dL Estimated GFR > 60.0 ML/MIN Glucose 116 H (74-106) mg/dL Calcium 8.4 (8.4-10.2) mg/dL Total Bilirubin 0.60 (0.2-1.3) mg/dL AST 22 (14-36) U/L ALT 21 (0-35) U/L Alkaline Phosphatase 133 H (38-126) U/L Troponin I < 0.012 (0.000-0.034) ng/mL Serum Total Protein 6.7 (6.3-8.2) g/dL Albumin 3.6 (3.5-5.0) g/dL Amylase (30-110) U/L Lipase (23-300) U/L 10/14/18 10/14/18 Range/Units 22:03 22:00 WBC 3.4 L (4.0-10.5) K/mm3 RBC 5.38 (4.1-5.4) M/mm3 Hgb 15.5 (12.0-16.0) gm/dl Hct 47.9 H (35-47) % MCV 89.0 (78-100) fl MCH 28.8 (26-32) pg MCHC 32.4 (32-36) g/dl RDW 14.8 H (11.5-14.0) % Plt Count 215 (150-450) K/mm3 MPV 11.6 H (6-9.5) fl Gran % 51.7 (36.0-66.0) % Eos # (Auto) 0.05 (0-0.5) Absolute Lymphs (auto) 1.38 (1.0-4.6) Absolute Monos (auto) 0.21 (0.0-1.3) Lymphocytes % 40.4 (24.0-44.0) % Monocytes % 6.1 (0.0-12.0) % Eosinophils % 1.5 (0.00-5.0) % Basophils % 0.3 (0.0-0.4) % Absolute Granulocytes 1.77 (1.4-6.9) Basophils # 0.01 (0-0.4) D-Dimer (215-500) ng/mL Sodium (137-145) mmol/L Potassium (3.5-5.1) mmol/L Chloride (98-107) mmol/L Carbon Dioxide (22-30) mmol/L Anion Gap (5-15) MEQ/L BUN (7-17) mg/dL Creatinine (0.52-1.04) mg/dL Estimated GFR ML/MIN Glucose (74-106) mg/dL Calcium (8.4-10.2) mg/dL Total Bilirubin (0.2-1.3) mg/dL AST (14-36) U/L ALT (0-35) U/L Alkaline Phosphatase (38-126) U/L Troponin I (0.000-0.034) ng/mL Serum Total Protein (6.3-8.2) g/dL Albumin (3.5-5.0) g/dL Amylase 57 (30-110) U/L Lipase 88 (23-300) U/L - Progress Progress: improved, re-examined Air Movement: good Progress Note: 10/14/18 22:31 cxr-? free air under right diaphragm 10/14/18 23:45 ct scan abd/pelvis-small to mod intraperitoneal free air upper abd the vicinity of postop changes of gastric bypass surgery(yissel hepatis and gastrohepatic ligament) 10/15/18 00:[address] gonzalez, general and bariatric surgeon, covering for dr. suri beverly. i reviewed pt hx, condition, lab, ekg and xray results with him. he accepts pt in transfer to [facility]. he recommends zosyn iv antibx. Counseled pt/family regarding: lab results, diagnosis, need for follow-up - Departure Time of Disposition: 00:16 Departure Disposition: Transfer Clinical Impression: Perforated abdominal viscus, Hypokalemia Condition: Stable Critical Care Time: Yes Critical Care Time(excluding separately billable procedures): 30-74 minutes Referrals: SINCERE LEHMAN [Primary Care Provider] -
[2018-10-14] MEDS ORDERED: BABY ASPIRIN 81 MG CHEW ONE (22:01)
[2018-10-14 22:11] LABS: BASOPHIL % 0.3 % (0.0-0.4); Basophil (Absolute #) 0.01 (0-0.4); Eosinophil % 1.5 % (0.00-5.0); Eosinophil (Absolute #) 0.05 (0-0.5); Granulocyte Absolute (ANC) 1.77 (1.4-6.9); Granulocytes % 51.7 % (36.0-66.0); Hematocrit 47.9 % (35-47); Hemoglobin 15.5 gm/dl (12.0-16.0); Lymphocyte (Absolute #) 1.38 (1.0-4.6); Lymphocytes % 40.4 % (24.0-44.0); Mean Corpuscular Hemoglobin 28.8 pg (26-32); Mean Corpuscular Hgb Concent. 32.4 g/dl (32-36); Mean Platelet Volume 11.6 fl (6-9.5); Monocyte (Absolute #) 0.21 (0.0-1.3); Monocytes % 6.1 % (0.0-12.0); Platelet Count 215 K/mm3 (150-450); Red Blood Count 5.38 M/mm3 (4.1-5.4); Red Cell Distribution Width 14.8 % (11.5-14.0); White Blood Count 3.4 K/mm3 (4.0-10.5)
[2018-10-14] MEDS ORDERED: Zofran 4 MG/2 ML VIAL IV ONE (22:18)
[2018-10-14] MEDS ORDERED: Hydromorphone 1 mg/ml Ampule IV ONE ×2 (22:18→23:48)
[2018-10-14] MEDS ORDERED: Hydromorphone 1 mg/ml Ampule ONE ×2 (22:24→23:53)
[2018-10-14] MEDS ORDERED: Zofran 4 MG/2 ML VIAL ONE (22:24)
[2018-10-14 22:28] LABS: ALBUMIN 3.6 g/dL (3.5-5.0); ALKALINE PHOSPHATASE 133 U/L (38-126); ANION GAP 11.5 MEQ/L (5-15); BLOOD UREA NITROGEN 19 mg/dL (7-17); CHLORIDE 97 mmol/L (98-107); Calcium 8.4 mg/dL (8.4-10.2); Carbon Dioxide 34 mmol/L (22-30); Creatinine 1 0.77 mg/dL (0.52-1.04); Glucose 116 mg/dL (74-106); Potassium 3.2 mmol/L (3.5-5.1); SGOT/AST 22 U/L (14-36); SGPT/ALT 21 U/L (0-35); SODIUM 139 mmol/L (137-145); Total Protein 6.7 g/dL (6.3-8.2)
[2018-10-14 22:49] LABS: AMYLASE 57 U/L (30-110); LIPASE 88 U/L (23-300)
[2018-10-14] MEDS ORDERED: Sodium Chloride 0.9% 1000 ML 1,000 ML IV SCH (23:45)
[2018-10-14] MEDS ORDERED: POTASSIUM CHLORIDE 20 mEq IN WATER 100ML 20 MEQ/100 ML BAG IV ONE (23:50)
[2018-10-14] MEDS ORDERED: Sodium Chloride 0.9% 1000 ML 1,000 ML ONE (23:53)
[2018-10-14] MEDS ORDERED: POTASSIUM CHLORIDE 20 mEq IN WATER 100ML 100 ML IV ONE (23:54)
[2018-10-15] MEDS ORDERED: Zosyn 3.375GM/100 Ml D5W 3.375 GM/100 ML IVPB IV STA (00:08)
[2018-10-15] MEDS ORDERED: Zosyn 3.375GM/100 Ml D5W 3.375 GM/100 ML IVPB IV ONE (00:15)
[2018-10-15 00:27] VITALS: O2SAT 100
[2018-10-15 01:10] VITALS: BP 95/53; PULSE 86
--- NOTE | 2018-10-15 08:47 | XRAY ---
Indication: Chest/upper abdomen pain. History renal stone. Multiple contiguous axial images obtained through the abdomen and pelvis without contrast as ordered. Comparison: November 06, 2016. Lung bases now demonstrates mild bibasilar dependent atelectasis. No infiltrate or effusion. Upper abdomen demonstrates new mild/moderate free air with no clear etiology. No free fluid. Again previous gastric bypass surgery. Mild fluid distended small bowel loops with synchronous fluid leveling favoring ileus. No focal bowel dilatation or obstruction. Stable minimal colonic diverticulosis, mild fatty liver, nonobstructing left renal calculus, pancreatic head microcalcification, hysterectomy, and cholecystectomy. Remaining liver, pancreas, spleen, adrenal glands, kidneys, ureters, bladder, and aorta appear unremarkable for noncontrast exam. Osseous structures intact again with mild degenerative changes throughout the thoracolumbar spine and moderate bilateral hip degenerative arthropathy. No ventral or inguinal hernias. Impression: 1. New pneumoperitoneum predominantly in the upper abdomen. Rule out GI perforation. Small bowel ileus presumed related. 2. Stable fatty liver, colonic diverticulosis, nonobstructing left renal calculus, and pancreatic microcalcification. Comment: Preliminary interpretation was made by [facility]. No discrepancy. CT DI 23.63
--- NOTE | 2018-10-15 08:49 | XRAY ---
Indication: Chest/upper abdomen pain. Comparison: July 17, 2016. Portable chest again demonstrates normal heart, lungs, and bony thorax. Upper abdomen demonstrates new free air further detailed on same-day CT abdomen/pelvis.
== END 2018-10-15 01:10 | disposition short-term general hospital (02) ==
LOC: ED 21:41
DX: R19.8 Other specified symptoms and signs involving the digestive system and abdomen (principal); E87.6 Hypokalemia; Z98.84 Bariatric surgery status; R11.0 Nausea; Z79.899 Other long term (current) drug therapy; I10 Essential (primary) hypertension; E11.9 Type 2 diabetes mellitus without complications
CPT/HCPCS: 36000; 36415; 71045; 74176; 80053; 82150; 83605; 83690; 84484; 85025; 85379; 93005; 93041; 96360; 96365; 96367; 96374; 96375; 96376; 99285; J1170; J2405; J2543; J3480; A9270-GY

== ENCOUNTER 2018-11-16 11:19 | Emergency (ER) | payer OTHER ==
--- NOTE | 2018-11-16 12:02 | ERPHSYRPT ---
- History of Present Illness Time Seen by Provider: 11/16/18 11:45 Historian: patient, family Patient Subjective Stated Complaint: STATES FOR THREE DAYS HAS BEEN HAVING EPIGASTRIC PAIN AND FEVER. LAST MONTH HAD PERF ULCER AND HAD SURGERY IN [facility]. LAST WEEK HAD A FOLLOWUP SCOPE AND WAS TOLD SHE IS HEALING. Triage Nursing Assessment: AMBULATED TO ROOM PER SELF HOLDING ABD. SKIN W/D, COLOR NORMAL, RESP NONLABORED. ABD SOFT BUT GUARDED. Physician History: 43 y/o white female with h/o gastric bypass in distant past, recently found to have a perforation (10/20) requiring revision gastric bypass, presents now with 3 days epigastric burning and fevers as high as 102F. pt underwent an upper endoscopy 1 week ago. pt has taken tylenol, peptobismal, carafate and omeprazole without benefit Timing/Duration: day(s) (3) Activities at Onset: none Quality: burning Location: substernal Chest Pain Radiation: no radiation Severity of Pain-Max: moderate Severity of Pain-Current: moderate Associated Symptoms: heartburn, abdominal pain (epigastric), shortness of breath (mild), fever, No nausea, No vomiting, No palpitations Prior Chest Pain/Cardiac Workup: recently seen/treated Aspirin Treatment Today: no aspirin today Allergies/Adverse Reactions: flurbiprofen [From Ansaid] Allergy (Severe, Verified 11/16/18 11:38) Swelling she can take other nsaids morphine Adverse Reaction (Intermediate, Verified 11/16/18 11:38) Itching "I've never been told im allergic to to it but it makes me itch and i don't like how it makes me feel" Home Medications: Cyanocobalamin (Vitamin B-12) [Vitamin B-12] 1,000 mcg IM UD 01/13/15 [History] Imipramine HCl 75 mg PO HS 10/03/16 [History] Albuterol Common Canister [Proventil Common Canister] 2 puff IH Q4H PRN [History] Carvedilol 3.125 mg [Coreg 3.125 MG] 3.125 mg PO BID 02/18/17 [History] Meclizine HCl 12.5 - 25 mg PO TIDPRN 02/19/17 [History] Omeprazole 20 mg PO DAILY 02/19/17 [History] Dicyclomine HCl [Bentyl] 10 mg PO QIDPRN PRN 03/18/17 [History] Ergocalciferol (Vitamin D2) [Vitamin D] 50,000 unit PO UD 03/18/17 [History] Sucralfate 1 gm [Carafate 1 GM] 1 gm PO TID 03/18/17 [History] Atorvastatin Calcium [Lipitor] 20 mg PO DAILY 11/16/18 [History] Tizanidine HCl 4 mg [Zanaflex 4 MG] 4 mg PO TID 11/16/18 [History] Hx Tetanus, Diphtheria Vaccination/Date Given: No Hx Influenza Vaccination/Date Given: Yes Hx Pneumococcal Vaccination/Date Given: Yes (2015) - Review of Systems Constitutional: Fever Eyes: No Symptoms Ears, Nose, & Throat: No Symptoms Respiratory: Dyspnea (mild) Cardiac: Chest Pain (burning substernal) Abdominal/Gastrointestinal: Abdominal Pain (epigastric burning) Genitourinary Symptoms: No Symptoms Musculoskeletal: No Symptoms Skin: No Symptoms Neurological: No Symptoms Psychological: No Symptoms Endocrine: No Symptoms Hematologic/Lymphatic: No Symptoms Immunological/Allergic: No Symptoms All Other Systems: Reviewed and Negative - Past Medical History Pertinent Past Medical History: Yes Neurological History: Migraines, Other ENT History: No Pertinent History Cardiac History: Angina, Hypertension, Other Respiratory History: Asthma Endocrine Medical History: Diabetes Type II Musculoskeletal History: Degenerative Disk Disease GI Medical History: Colitis, Diverticulosis, GERD, Gallbladder Disease History: Other Psycho-Social History: Depression, Anxiety Female Reproductive Disorders: Menstrual Problems Other Medical History: TYPE II DM," palpatations" MVP, VERTIGO. " black out spells" - Past Surgical History Past Surgical History: Yes Neuro Surgical History: No Pertinent History Cardiac: Cardiac Catheterization Respiratory: No Pertinent History Gastrointestinal: Other, Cholecystectomy Genitourinary: No Pertinent History, Other Musculoskeletal: No Pertinent History Female Surgical History: Section, Hysterectomy, Tubal Ligation, Other Other Surgical History: Gastric Bypass 2009; Kidney balloon as child; Uteral ablation. perforated ulcer - Social History Smoking Status: Former smoker How long have you smoked: 10 Exposure to second hand smoke: Yes Alcohol Use: None Drug Use: none Patient Lives Alone: No - Female History Hx Now: No - Nursing Vital Signs Nursing Vital Signs: Initial Vital Signs Temperature 99 F 11/16/18 11:33 Pulse Rate 79 11/16/18 11:33 Respiratory Rate 16 11/16/18 11:33 Blood Pressure 125/93 11/16/18 11:33 O2 Sat by Pulse Oximetry 100 11/16/18 11:33 Pain Scale Pain Intensity 4 - Physical Exam General Appearance: mild distress, alert, anxiety Eye Exam: PERRL/EOMI Ears, Nose, Throat Exam: normal ENT inspection, moist mucous membranes Neck Exam: normal inspection, non-tender, supple, full range of motion Respiratory Exam: normal breath sounds, chest tenderness, lungs clear, airway intact, No respiratory distress, No accessory muscle use, No rhonchi, No wheezing, No stridor Cardiovascular Exam: regular rate/rhythm, normal heart sounds, normal peripheral pulses Gastrointestinal/Abdomen Exam: soft, normal bowel sounds, tenderness (epigastric ), No guarding, No rebound Pelvic Exam: not done Rectal Exam: not done Back Exam: normal inspection, normal range of motion, CVA tenderness Extremity Exam: normal inspection, normal range of motion, pelvis stable Neurologic Exam: alert, oriented x 3, cooperative, 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 Skin Exam: normal color, warm, dry Lymphatic Exam: No adenopathy SpO2 Interpretation: normal SpO2: 100 O2 Delivery: Room Air - Course Nursing assessment & vital signs reviewed: Yes Ordered Tests: Active Orders 24 hr Category Date Time Status Clean Catch Urine Specimen STAT Care 11/16/18 12:03 Active EKG-ER Only STAT Care 11/16/18 12:03 Active IV Insertion STAT Care 11/16/18 12:03 Active ABDOMEN AND PELVIS W CONTRAST [CT] Stat Exams 11/16/18 12:05 Completed CHEST WITH CONTRAST [CT] Stat Exams 11/16/18 12:06 Completed AMYLASE Stat Lab 11/16/18 11:20 Completed CBC W DIFF Stat Lab 11/16/18 11:20 Completed CMP Stat Lab 11/16/18 11:20 Completed CULTURE,URINE Stat Lab 11/16/18 11:20 Received D-DIMER QUANTITATION Stat Lab 11/16/18 11:20 Completed LIPASE Stat Lab 11/16/18 11:20 Completed Lactic Acid Stat Lab 11/16/18 12:20 Completed TROPONIN Q3H Lab 11/16/18 11:20 Completed TROPONIN Q3H Lab 11/16/18 15:15 Ordered TROPONIN Q3H Lab 11/16/18 18:15 Ordered TROPONIN Q3H Lab 11/16/18 21:15 Ordered TROPONIN Q3H Lab 11/17/18 00:15 Ordered UA W/RFX UR CULTURE Stat Lab 11/16/18 11:20 Completed Medication Summary Discontinued Medications Generic Name Dose Route Start Last Admin Trade Name Abhayq PRN Reason Stop Dose Admin Al Hydrox/Mg Hydrox/Simethicone Confirm 11/16/18 14:22 Maalox Es 30 Ml Unit Dose Administered 11/16/18 14:23 Dose 30 ml .ROUTE .STK-MED ONE Hydromorphone HCl 1 mg 11/16/18 14:06 11/16/18 14:30 Hydromorphone 1 Mg/Ml Ampule IV 11/16/18 14:07 1 mg STAT ONE Administration Hydromorphone HCl Confirm 11/16/18 14:21 Hydromorphone 1 Mg/Ml Ampule Administered 11/16/18 14:22 Dose 1 mg .ROUTE .STK-MED ONE Sodium Chloride 1,000 mls @ 999 mls/hr 11/16/18 12:03 11/16/18 14:01 Sodium Chloride 0.9% 1000 Ml IV 11/16/18 13:03 Infused .Q1H1M STA Infusion Sodium Chloride Confirm 11/16/18 12:24 Sodium Chloride 0.9% 1000 Ml Administered 11/16/18 12:25 Dose 1,000 mls @ ud .ROUTE .STK-MED ONE Piperacillin Sod/Tazobactam Sod 3.375 gm in 100 mls @ 200 mls/hr 11/16/18 14: 05 11/16/18 14:31 Zosyn 3.375gm/100 Ml D5w IV 11/16/18 14:34 200 ml/hr STAT STA 200 mls/hr Administration Piperacillin Sod/Tazobactam Sod Confirm 11/16/18 14:22 Zosyn 3.375gm/100 Ml D5w Administered 11/16/18 14:23 Dose 3.375 gm in 100 mls @ ud IV .STK-MED ONE Lidocaine HCl Confirm 11/16/18 14:22 Xylocaine Hcl Viscous * Administered 11/16/18 14:23 Dose 15 ml .ROUTE .STK-MED ONE Magnesium Hydroxide 45 ml 11/16/18 14:09 11/16/18 14:31 Gi Cocktail 45 Ml (Maalox/Lidocaine) PO 11/16/18 14:10 45 ml STAT ONE Administration Lab/Rad Data: Laboratory Result Diagrams 11/16/18 11:20 11/16/18 11:20 Laboratory Results 11/16/18 11/16/18 11/16/18 Range/Units 12:20 11:20 11:20 WBC (4.0-10.5) K/mm3 RBC (4.1-5.4) M/mm3 Hgb (12.0-16.0) gm/dl Hct (35-47) % MCV (78-100) fl MCH (26-32) pg MCHC (32-36) g/dl RDW (11.5-14.0) % Plt Count (150-450) K/mm3 MPV (6-9.5) fl Gran % (36.0-66.0) % Eos # (Auto) (0-0.5) Absolute Lymphs (auto) (1.0-4.6) Absolute Monos (auto) (0.0-1.3) Lymphocytes % (24.0-44.0) % Monocytes % (0.0-12.0) % Eosinophils % (0.00-5.0) % Basophils % (0.0-0.4) % Absolute Granulocytes (1.4-6.9) Basophils # (0-0.4) D-Dimer (215-500) ng/mL Sodium (137-145) mmol/L Potassium (3.5-5.1) mmol/L Chloride (98-107) mmol/L Carbon Dioxide (22-30) mmol/L Anion Gap (5-15) MEQ/L BUN (7-17) mg/dL Creatinine (0.52-1.04) mg/dL Estimated GFR ML/MIN Glucose (74-106) mg/dL Lactic Acid 1.1 (0.4-2.0) Calcium (8.4-10.2) mg/dL Total Bilirubin (0.2-1.3) mg/dL AST (14-36) U/L ALT (0-35) U/L Alkaline Phosphatase (38-126) U/L Troponin I < 0.012 (0.000-0.034) ng/mL Serum Total Protein (6.3-8.2) g/dL Albumin (3.5-5.0) g/dL Amylase (30-110) U/L Lipase (23-300) U/L Urine Color BREN (YELLOW) Urine Appearance SLIGHTLY CLOUDY (CLEAR) Urine pH 6.0 (5-6) Ur Specific [place] 1.025 (1.005-1.025) Urine Protein 30 (Negative) Urine Ketones TRACE (NEGATIVE) Urine Blood NEGATIVE (0-5) Sajan/ul Urine Nitrite NEGATIVE (NEGATIVE) Urine Bilirubin SMALL (NEGATIVE) Urine Urobilinogen 4 (0-1) mg/dL Ur Leukocyte Esterase TRACE (NEGATIVE) Urine WBC (Auto) 6-10 (0-5) /HPF Urine RBC (Auto) 0-2 (0-2) /HPF U Epithel Cells (Auto) RARE (FEW) /HPF Urine Bacteria (Auto) FEW (NEGATIVE) /HPF Urine Mucus (Auto) SLIGHT (NEGATIVE) /HPF Urine Yeast (Budding) Few (NEGATIVE) /HPF Urine Culture Reflexed YES (NO) Urine Glucose 50 (NEGATIVE) mg/dL 11/16/18 11/16/18 11/16/18 Range/Units 11:20 11:20 11:20 WBC 10.7 H (4.0-10.5) K/mm3 RBC 4.97 (4.1-5.4) M/mm3 Hgb 14.2 (12.0-16.0) gm/dl Hct 44.1 (35-47) % MCV 88.7 (78-100) fl MCH 28.6 (26-32) pg MCHC 32.2 (32-36) g/dl RDW 13.5 (11.5-14.0) % Plt Count 359 (150-450) K/mm3 MPV 10.6 H (6-9.5) fl Gran % 83.4 H (36.0-66.0) % Eos # (Auto) 0.01 (0-0.5) Absolute Lymphs (auto) 0.91 L (1.0-4.6) Absolute Monos (auto) 0.84 (0.0-1.3) Lymphocytes % 8.5 L (24.0-44.0) % Monocytes % 7.8 (0.0-12.0) % Eosinophils % 0.1 (0.00-5.0) % Basophils % 0.2 (0.0-0.4) % Absolute Granulocytes 8.96 H (1.4-6.9) Basophils # 0.02 (0-0.4) D-Dimer 545 H* (215-500) ng/mL Sodium 137 (137-145) mmol/L Potassium 3.6 (3.5-5.1) mmol/L Chloride 99 (98-107) mmol/L Carbon Dioxide 32 H (22-30) mmol/L Anion Gap 9.7 (5-15) MEQ/L BUN 13 (7-17) mg/dL Creatinine 0.55 (0.52-1.04) mg/dL Estimated GFR > 60.0 ML/MIN Glucose 97 (74-106) mg/dL Lactic Acid (0.4-2.0) Calcium 8.1 L (8.4-10.2) mg/dL Total Bilirubin 0.90 (0.2-1.3) mg/dL AST 11 L (14-36) U/L ALT 12 (0-35) U/L Alkaline Phosphatase 151 H (38-126) U/L Troponin I (0.000-0.034) ng/mL Serum Total Protein 6.4 (6.3-8.2) g/dL Albumin 2.8 L (3.5-5.0) g/dL Amylase 33 (30-110) U/L Lipase 23 (23-300) U/L Urine Color (YELLOW) Urine Appearance (CLEAR) Urine pH (5-6) Ur Specific [place] (1.005-1.025) Urine Protein (Negative) Urine Ketones (NEGATIVE) Urine Blood (0-5) Sajan/ul Urine Nitrite (NEGATIVE) Urine Bilirubin (NEGATIVE) Urine Urobilinogen (0-1) mg/dL Ur Leukocyte Esterase (NEGATIVE) Urine WBC (Auto) (0-5) /HPF Urine RBC (Auto) (0-2) /HPF U Epithel Cells (Auto) (FEW) /HPF Urine Bacteria (Auto) (NEGATIVE) /HPF Urine Mucus (Auto) (NEGATIVE) /HPF Urine Yeast (Budding) (NEGATIVE) /HPF Urine Culture Reflexed (NO) Urine Glucose (NEGATIVE) mg/dL - Progress Progress: improved, re-examined Air Movement: good Progress Note: 11/16/18 14:56 ct chest-no acute process ct abd/pelvis-new multiloculated abscess within gb fossa. measures 7x 6.5x spo8.7cm 1435 spoke with pts bariatric surgeon dr. gonzalez at [facility]. sent him ct studies via cloud [id number] dr. gonzalez called back. no xrays on the cloud visible. states he accepts pt in transfer if pt wants to be transferrred. dr. quiroz here at [place] states he is unable to access the abscess site for drain placement given its location. pt wants to be transferred to [facility] where dr. gonzalez is. Blood Culture(s) Obtained: Yes Antibiotics given: Yes Discussed with DrMeet: Other (dr. gonzalez) Counseled pt/family regarding: lab results, diagnosis, need for follow-up, rad results - Departure Time of Disposition: 15:17 Departure Disposition: Transfer Clinical Impression: Postoperative intra-abdominal abscess Condition: Stable Critical Care Time: No Referrals: SINCERE LEHMAN [Primary Care Provider] -
[2018-11-16] MEDS ORDERED: Sodium Chloride 0.9% 1000 ML 1,000 ML IV STA (12:03)
[2018-11-16] MEDS ORDERED: Sodium Chloride 0.9% 1000 ML 1,000 ML ONE (12:24)
[2018-11-16 12:42] LABS: BASOPHIL % 0.2 % (0.0-0.4); Basophil (Absolute #) 0.02 (0-0.4); Eosinophil % 0.1 % (0.00-5.0); Eosinophil (Absolute #) 0.01 (0-0.5); Granulocyte Absolute (ANC) 8.96 (1.4-6.9); Granulocytes % 83.4 % (36.0-66.0); Hematocrit 44.1 % (35-47); Hemoglobin 14.2 gm/dl (12.0-16.0); Lymphocyte (Absolute #) 0.91 (1.0-4.6); Lymphocytes % 8.5 % (24.0-44.0); Mean Cell Volume 88.7 fl (78-100); Mean Corpuscular Hemoglobin 28.6 pg (26-32); Mean Corpuscular Hgb Concent. 32.2 g/dl (32-36); Mean Platelet Volume 10.6 fl (6-9.5); Monocyte (Absolute #) 0.84 (0.0-1.3); Monocytes % 7.8 % (0.0-12.0); Platelet Count 359 K/mm3 (150-450); Red Blood Count 4.97 M/mm3 (4.1-5.4); Red Cell Distribution Width 13.5 % (11.5-14.0); White Blood Count 10.7 K/mm3 (4.0-10.5)
[2018-11-16 12:43] LABS: ALBUMIN 2.8 g/dL (3.5-5.0); ALKALINE PHOSPHATASE 151 U/L (38-126); AMYLASE 33 U/L (30-110); ANION GAP 9.7 MEQ/L (5-15); BLOOD UREA NITROGEN 13 mg/dL (7-17); CHLORIDE 99 mmol/L (98-107); Calcium 8.1 mg/dL (8.4-10.2); Carbon Dioxide 32 mmol/L (22-30); Creatinine 1 0.55 mg/dL (0.52-1.04); Glucose 97 mg/dL (74-106); LIPASE 23 U/L (23-300); Potassium 3.6 mmol/L (3.5-5.1); SGOT/AST 11 U/L (14-36); SGPT/ALT 12 U/L (0-35); SODIUM 137 mmol/L (137-145); Total Protein 6.4 g/dL (6.3-8.2)
[2018-11-16 12:57] LABS: Appearance SLIGHTLY CLOUDY (CLEAR); Bacteria FEW /HPF (NEGATIVE); Bilirubin SMALL (NEGATIVE); Blood NEGATIVE Ery/ul (0-5); Epithelial Cells RARE /HPF (FEW); Glucose 50 mg/dL (NEGATIVE); Ketones TRACE (NEGATIVE); Leukocyte Esterase TRACE (NEGATIVE); Mucus SLIGHT /HPF (NEGATIVE); Nitrite NEGATIVE (NEGATIVE); Protein,Urine Dip 30 (Negative); RBC 0-2 /HPF (0-2); Specific Gravity 1.025 (1.005-1.025); Urobilinogen 4 mg/dL (0-1)
[2018-11-16 12:59] LABS: Budding Yeast Few /HPF (NEGATIVE)
--- NOTE | 2018-11-16 13:19 | XRAY ---
Indication: Fever and nausea. History perforated ulcer October 15, 2018. Multiple contiguous axial images obtained through the chest using 80 cc Isovue 370 contrast. Comparison: January 06, 2014. Lungs again demonstrates minimal bibasilar dependent atelectasis. No suspicious pulmonary mass, infiltrate, or effusion. Heart is not enlarged. Aorta is normal in course and caliber. Stable tiny left hilar calcified nodes. No pathologic mediastinal/hilar lymphadenopathy. Bony thorax intact again with mild degenerative changes throughout the spine. CT abdomen reported separately. Impression: Stable tiny left hilar calcified nodes. Remaining CT chest with contrast exam is again negative. CT DI 19.18
--- NOTE | 2018-11-16 13:20 | XRAY ---
Indication: Fever and nausea. History perforated ulcer October 15, 2018. Multiple contiguous axial images obtained through the abdomen and pelvis using 80 cc Isovue 370 contrast. Comparison: October 14, 2018. CT chest reported separately. Again gastric bypass surgery, cholecystectomy, and hysterectomy. New multiloculated fluid collection in the gallbladder fossa with wall thickening/enhancement worrisome for abscess. Overall size is approximately 7 x 6.5 x 8.7 cm. No free air. Noncontrasted bowel loops appear nonobstructed with stable mild scattered colonic diverticulosis again greatest sigmoid colon. Stable pancreatic head microcalcification, mild fatty liver, and nonobstructing left renal calculus. Remaining spleen, adrenal glands, kidneys, ureters, and bladder appear unremarkable. Aorta is normal in course and caliber. No AAA or pathologic retroperitoneal lymphadenopathy. Osseous structures intact again with mild degenerative changes throughout the spine and moderate bilateral hip degenerative arthropathy. Impression: 1. New multiloculated abscess in the gallbladder fossa as detailed. 2. Stable fatty liver, colonic diverticulosis, nonobstructing left renal calculus, and pancreatic microcalcification. CT DI 19.18
[2018-11-16] MEDS ORDERED: Zosyn 3.375GM/100 Ml D5W 3.375 GM/100 ML IVPB IV STA (14:05)
[2018-11-16] MEDS ORDERED: Hydromorphone 1 mg/ml Ampule IV ONE ×2 (14:06→20:27)
[2018-11-16] MEDS ORDERED: GI COCKTAIL 45 ML (Maalox/Lidocaine) PO ONE (14:09)
[2018-11-16] MEDS ORDERED: Hydromorphone 1 mg/ml Ampule ONE ×2 (14:21→20:30)
[2018-11-16] MEDS ORDERED: XYLOCAINE HCl Viscous ONE (14:22)
[2018-11-16] MEDS ORDERED: MAALOX ES 30 ML UNIT DOSE ONE (14:22)
[2018-11-16] MEDS ORDERED: Zosyn 3.375GM/100 Ml D5W 3.375 GM/100 ML IVPB IV ONE (14:22)
[2018-11-16 21:20] VITALS: BP 117/81; PULSE 87; O2SAT 99
== END 2018-11-16 20:25 | disposition short-term general hospital (02) ==
LOC: ED 11:19
DX: T81.49XA Infection following a procedure, other surgical site, initial encounter (principal); T81.43XA Infection following a procedure, organ and space surgical site, initial encounter; K68.11 Postprocedural retroperitoneal abscess; Z98.84 Bariatric surgery status; I10 Essential (primary) hypertension; E11.9 Type 2 diabetes mellitus without complications; K21.9 Gastro-esophageal reflux disease without esophagitis; Z79.899 Other long term (current) drug therapy
CPT/HCPCS: 36000; 36415; 71260; 74177; 80053; 81001; 82150; 83605; 83690; 84484; 85025; 85379; 87086; 93005; 96360; 96365; 96374; 96375; 99285; J1170; J2543; A9270-GY

== ENCOUNTER 2018-12-03 10:38 | Observation (INO) | payer OTHER ==
[2018-12-03] MEDS ORDERED: Sodium Chloride 0.9% 1000 ML 1,000 ML IV STA (11:14)
[2018-12-03] MEDS ORDERED: MORPHINE SULFATE 4 MG INJ IV ONE (11:14)
[2018-12-03] MEDS ORDERED: Zofran 4 MG/2 ML VIAL IV ONE (11:14)
[2018-12-03] MEDS ORDERED: Pepcid 20 MG VIAL IV ONE ×2 (11:14→11:26)
[2018-12-03] MEDS ORDERED: Sodium Chloride 0.9% 1000 ML 1,000 ML ONE (11:26)
[2018-12-03] MEDS ORDERED: Hydromorphone 1 mg/ml Ampule IV ONE ×2 (11:26→15:18)
[2018-12-03] MEDS ORDERED: Zofran 4 MG/2 ML VIAL ONE (11:26)
--- NOTE | 2018-12-03 11:26 | ERPHSYRPT ---
- History of Present Illness Time Seen by Provider: 12/03/18 10:44 Historian: patient Exam Limitations: no limitations Patient Subjective Stated Complaint: states abd pain since last night. took pain med without relief. hx of gastric bypass with ruptured peptic ulcer in october. two weeks ago had abcess in abd and [facility]. Triage Nursing Assessment: ambulated to room per self. skin w/d, color normal, resp easy. patient holding abd. abd soft. Physician History: Pt started c/o severe RUQ abdominal pain, radiating to her back since last night. She is nauseated, denies vomiting, has chronic diarrhea, denies passing blood or black stools, no fever, chills, or urinary complaints, but diaphoretic. She underwent gastric bypass surgery in 2009, was treated in [facility] with ruptured gastric ulcer on 10/13/18, and developed an abscess in the area last month. She was started on TPN, and currently takes Augmentin and Fluconazole. Timing/Duration: yesterday Activities at Onset: none Quality: sharpness Abdominal Pain Onset Location: RUQ Pain Radiation: flank (right) Severity of Pain-Max: severe Severity of Pain-Current: severe Modifying Factors: Improves With: nothing Associated Symptoms: diaphoresis, diarrhea, loss of appetite, nausea Previous symptoms: same symptoms as today Allergies/Adverse Reactions: flurbiprofen [From Ansaid] Allergy (Severe, Verified 12/03/18 10:53) Swelling she can take other nsaids morphine Adverse Reaction (Intermediate, Verified 12/03/18 10:53) Itching "I've never been told im allergic to to it but it makes me itch and i don't like how it makes me feel" Home Medications: Cyanocobalamin (Vitamin B-12) [Vitamin B-12] 1,000 mcg IM UD 01/13/15 [History] Imipramine HCl 75 mg PO HS 10/03/16 [History] Albuterol Common Canister [Proventil Common Canister] 2 puff IH Q4H PRN [History] Carvedilol 3.125 mg [Coreg 3.125 MG] 3.125 mg PO BID 02/18/17 [History] Meclizine HCl 12.5 - 25 mg PO TIDPRN 02/19/17 [History] Omeprazole 20 mg PO DAILY 02/19/17 [History] Dicyclomine HCl [Bentyl] 10 mg PO QIDPRN PRN 03/18/17 [History] Ergocalciferol (Vitamin D2) [Vitamin D] 50,000 unit PO UD 03/18/17 [History] Sucralfate 1 gm [Carafate 1 GM] 1 gm PO TID 03/18/17 [History] Atorvastatin Calcium [Lipitor] 20 mg PO DAILY 11/16/18 [History] Tizanidine HCl 4 mg [Zanaflex 4 MG] 4 mg PO TID 11/16/18 [History] Amoxicillin/Potassium Clav [Amox Tr-K Clv 875-125 mg Tab] 1 each PO BID [History] Fluconazole 200 mg PO BID 12/03/18 [History] Oxycodone HCl 5 mg PO UD 12/03/18 [History] Hx Tetanus, Diphtheria Vaccination/Date Given: No Hx Influenza Vaccination/Date Given: Yes Hx Pneumococcal Vaccination/Date Given: Yes (2015) - Review of Systems Constitutional: Night Sweats Eyes: No Symptoms Ears, Nose, & Throat: No Symptoms Respiratory: No Symptoms Cardiac: No Symptoms Abdominal/Gastrointestinal: Abdominal Pain, Nausea, Diarrhea Genitourinary Symptoms: No Symptoms Musculoskeletal: No Symptoms Skin: No Symptoms Neurological: No Symptoms All Other Systems: Reviewed and Negative - Past Medical History Pertinent Past Medical History: Yes Neurological History: Migraines, Other ENT History: No Pertinent History Cardiac History: Angina, Hypertension, Other Respiratory History: Asthma Endocrine Medical History: Diabetes Type II Musculoskeletal History: Degenerative Disk Disease GI Medical History: Colitis, Diverticulosis, GERD, Gallbladder Disease History: Other Psycho-Social History: Depression, Anxiety Female Reproductive Disorders: Menstrual Problems Other Medical History: TYPE II DM," palpatations" MVP, VERTIGO. " black out spells" - Past Surgical History Past Surgical History: Yes Neuro Surgical History: No Pertinent History Cardiac: Cardiac Catheterization Respiratory: No Pertinent History Gastrointestinal: Other, Cholecystectomy Genitourinary: No Pertinent History, Other Musculoskeletal: No Pertinent History Female Surgical History: Section, Hysterectomy, Tubal Ligation, Other Other Surgical History: Gastric Bypass 2009; Kidney balloon as child; Uteral ablation. perforated ulcer - Social History Smoking Status: Former smoker How long have you smoked: 10 Exposure to second hand smoke: Yes Alcohol Use: None Drug Use: none Patient Lives Alone: No - Female History Hx Now: No - Nursing Vital Signs Nursing Vital Signs: Initial Vital Signs Temperature 97.3 F 12/03/18 10:41 Pulse Rate 113 H 12/03/18 10:41 Respiratory Rate 18 12/03/18 10:41 Blood Pressure 121/86 12/03/18 10:41 O2 Sat by Pulse Oximetry 99 12/03/18 10:41 Pain Scale Pain Intensity 4 - Physical Exam General Appearance: no apparent distress Eye Exam: eyes nml inspection Ears, Nose, Throat Exam: normal ENT inspection, pharynx normal Neck Exam: normal inspection, non-tender, supple, No JVD Respiratory Exam: normal breath sounds, lungs clear, airway intact, No chest tenderness Cardiovascular Exam: normal heart sounds, normal peripheral pulses, tachycardia , No murmur Gastrointestinal/Abdomen Exam: soft, normal bowel sounds, tenderness (RUQ, mod. severe), No distention, No mass, No guarding, No pulsatile mass, No rebound, No organomegaly Back Exam: normal inspection, CVA tenderness (right) Extremity Exam: normal inspection Neurologic Exam: alert, oriented x 3, cooperative, normal mood/affect Skin Exam: normal color, warm, rash, diaphoresis, No petechiae Lymphatic Exam: No adenopathy SpO2 Interpretation: normal SpO2: 99 O2 Delivery: Room Air - Course Nursing assessment & vital signs reviewed: Yes EKG Interpreted by Me: RATE (77/min), NORMAL AXIS, NORMAL INTERVALS, Non- specific ST Changes - Radiology Exams Chest X-ray Interpretation: Reviewed by me, Negative - CT Exams Abdomen/Pelvis CT Interpretation: Tele-radiologist Report, Other (previous gallbladder fossa abscess appears small, interval increasing mild biliary tree prominence with common bile duct 1.3 cm) Ordered Tests: Active Orders 24 hr Category Date Time Status EKG-ER Only STAT Care 12/03/18 11:14 Active ABDOMEN AND PELVIS W CONTRAST [CT] Stat Exams 12/03/18 11:16 Completed CHEST 1 VIEW (PORTABLE) Stat Exams 12/03/18 11:15 Completed AMYLASE Routine Lab 12/03/18 11:20 Completed CBC W DIFF Stat Lab 12/03/18 11:20 Completed CK-Creatinine Phosphokinase Routine Lab 12/03/18 11:20 Completed CMP Routine Lab 12/03/18 11:20 Completed LIPASE Routine Lab 12/03/18 11:20 Completed Lactic Acid Stat Lab 12/03/18 11:28 Completed PROTIME WITH INR Stat Lab 12/03/18 11:20 Completed TROPONIN Q3H Lab 12/03/18 11:20 Completed TROPONIN Q3H Lab 12/03/18 14:35 Completed UA W/RFX UR CULTURE Stat Lab 12/03/18 11:27 Completed Urine Triage Profile Stat Lab 12/03/18 11:27 Completed Medication Summary Discontinued Medications Generic Name Dose Route Start Last Admin Trade Name Freq PRN Reason Stop Dose Admin Famotidine 20 mg 12/03/18 11:14 12/03/18 11:33 Pepcid 20 Mg Vial IV 12/03/18 11:15 20 mg STAT ONE Administration Famotidine Confirm 12/03/18 11:26 Pepcid 20 Mg Vial Administered 12/03/18 11:27 Dose 20 mg IV .STK-MED ONE Hydromorphone HCl 1 mg 12/03/18 11:26 12/03/18 11:33 Hydromorphone 1 Mg/Ml Ampule IV 12/03/18 11:27 1 mg STAT ONE Administration Hydromorphone HCl Confirm 12/03/18 11:31 Hydromorphone 1 Mg/Ml Ampule Administered 12/03/18 11:32 Dose 1 mg .ROUTE .STK-MED ONE Hydromorphone HCl 1 mg 12/03/18 15:18 12/03/18 15:31 Hydromorphone 1 Mg/Ml Ampule IV 12/03/18 15:19 1 mg STAT ONE Administration Hydromorphone HCl Confirm 12/03/18 15:27 Hydromorphone 1 Mg/Ml Ampule Administered 12/03/18 15:28 Dose 1 mg .ROUTE .STK-MED ONE Sodium Chloride 1,000 mls @ 999 mls/hr 12/03/18 11:14 12/03/18 13:43 Sodium Chloride 0.9% 1000 Ml IV 12/03/18 12:14 Infused .Q1H1M STA Infusion Sodium Chloride Confirm 12/03/18 11:26 Sodium Chloride 0.9% 1000 Ml Administered 12/03/18 11:27 Dose 1,000 mls @ ud .ROUTE .STK-MED ONE Morphine Sulfate 4 mg 12/03/18 11:14 12/03/18 11:30 Morphine Sulfate 4 Mg Inj IV 12/03/18 11:15 Not Given STAT ONE Ondansetron HCl 4 mg 12/03/18 11:14 12/03/18 11:33 Zofran 4 Mg/2 Ml Vial IV 12/03/18 11:15 4 mg STAT ONE Administration Ondansetron HCl Confirm 12/03/18 11:26 Zofran 4 Mg/2 Ml Vial Administered 12/03/18 11:27 Dose 4 mg .ROUTE .STK-MED ONE Lab/Rad Data: Laboratory Result Diagrams 12/03/18 11:20 12/03/18 11:20 Laboratory Results 12/03/18 12/03/18 12/03/18 Range/Units 14:35 11:28 11:27 WBC (4.0-10.5) K/mm3 RBC (4.1-5.4) M/mm3 Hgb (12.0-16.0) gm/dl Hct (35-47) % MCV (78-100) fl MCH (26-32) pg MCHC (32-36) g/dl RDW (11.5-14.0) % Plt Count (150-450) K/mm3 MPV (6-9.5) fl Gran % (36.0-66.0) % Eos # (Auto) (0-0.5) Absolute Lymphs (auto) (1.0-4.6) Absolute Monos (auto) (0.0-1.3) Lymphocytes % (24.0-44.0) % Monocytes % (0.0-12.0) % Eosinophils % (0.00-5.0) % Basophils % (0.0-0.4) % Absolute Granulocytes (1.4-6.9) Basophils # (0-0.4) PT (9.95-12.35) SECONDS INR (0.8-3.0) Sodium (137-145) mmol/L Potassium (3.5-5.1) mmol/L Chloride (98-107) mmol/L Carbon Dioxide (22-30) mmol/L Anion Gap (5-15) MEQ/L BUN (7-17) mg/dL Creatinine (0.52-1.04) mg/dL Estimated GFR ML/MIN Glucose (74-106) mg/dL Lactic Acid 1.4 (0.4-2.0) Calcium (8.4-10.2) mg/dL Total Bilirubin (0.2-1.3) mg/dL AST (14-36) U/L ALT (0-35) U/L Alkaline Phosphatase (38-126) U/L Creatine Kinase (30-135) U/L Troponin I < 0.012 (0.000-0.034) ng/mL Serum Total Protein (6.3-8.2) g/dL Albumin (3.5-5.0) g/dL Amylase (30-110) U/L Lipase (23-300) U/L Urine Color (YELLOW) Urine Appearance (CLEAR) Urine pH (5-6) Ur Specific [place] (1.005-1.025) Urine Protein (Negative) Urine Ketones (NEGATIVE) Urine Blood (0-5) Sajan/ul Urine Nitrite (NEGATIVE) Urine Bilirubin (NEGATIVE) Urine Urobilinogen (0-1) mg/dL Ur Leukocyte Esterase (NEGATIVE) Urine WBC (Auto) (0-5) /HPF Urine RBC (Auto) (0-2) /HPF U Epithel Cells (Auto) (FEW) /HPF Urine Bacteria (Auto) (NEGATIVE) /HPF Urine Mucus (Auto) (NEGATIVE) /HPF Urine Culture Reflexed (NO) Urine Glucose (NEGATIVE) mg/dL Urine Opiates Level NEGATIVE (NEGATIVE) Ur Methadone NEGATIVE (NEGATIVE) Urine Barbiturates NEGATIVE (NEGATIVE) Ur Phencyclidine (PCP) NEGATIVE (NEGATIVE) Urine Amphetamine NEGATIVE (NEGATIVE) U Benzodiazepine Level NEGATIVE (NEGATIVE) Urine Cocaine NEGATIVE (NEGATIVE) Urine Marijuana (THC) NEGATIVE (NEGATIVE) 12/03/18 12/03/18 12/03/18 Range/Units 11:27 11:20 11:20 WBC (4.0-10.5) K/mm3 RBC (4.1-5.4) M/mm3 Hgb (12.0-16.0) gm/dl Hct (35-47) % MCV (78-100) fl MCH (26-32) pg MCHC (32-36) g/dl RDW (11.5-14.0) % Plt Count (150-450) K/mm3 MPV (6-9.5) fl Gran % (36.0-66.0) % Eos # (Auto) (0-0.5) Absolute Lymphs (auto) (1.0-4.6) Absolute Monos (auto) (0.0-1.3) Lymphocytes % (24.0-44.0) % Monocytes % (0.0-12.0) % Eosinophils % (0.00-5.0) % Basophils % (0.0-0.4) % Absolute Granulocytes (1.4-6.9) Basophils # (0-0.4) PT 12.9 H (9.95-12.35) SECONDS INR 1.11 (0.8-3.0) Sodium 140 (137-145) mmol/L Potassium 5.0 (3.5-5.1) mmol/L Chloride 103 (98-107) mmol/L Carbon Dioxide 30 (22-30) mmol/L Anion Gap 12.6 (5-15) MEQ/L BUN 22 H (7-17) mg/dL Creatinine 0.60 (0.52-1.04) mg/dL Estimated GFR > 60.0 ML/MIN Glucose 70 L (74-106) mg/dL Lactic Acid (0.4-2.0) Calcium 9.7 (8.4-10.2) mg/dL Total Bilirubin 0.40 (0.2-1.3) mg/dL AST 24 (14-36) U/L ALT 21 (0-35) U/L Alkaline Phosphatase 119 (38-126) U/L Creatine Kinase < 20 L (30-135) U/L Troponin I < 0.012 (0.000-0.034) ng/mL Serum Total Protein 8.3 H (6.3-8.2) g/dL Albumin 3.8 (3.5-5.0) g/dL Amylase 86 (30-110) U/L Lipase 114 (23-300) U/L Urine Color YELLOW (YELLOW) Urine Appearance CLEAR (CLEAR) Urine pH 6.0 (5-6) Ur Specific [place] 1.016 (1.005-1.025) Urine Protein NEGATIVE (Negative) Urine Ketones NEGATIVE (NEGATIVE) Urine Blood NEGATIVE (0-5) Sajan/ul Urine Nitrite NEGATIVE (NEGATIVE) Urine Bilirubin NEGATIVE (NEGATIVE) Urine Urobilinogen 4 (0-1) mg/dL Ur Leukocyte Esterase NEGATIVE (NEGATIVE) Urine WBC (Auto) NONE (0-5) /HPF Urine RBC (Auto) NONE (0-2) /HPF U Epithel Cells (Auto) NONE (FEW) /HPF Urine Bacteria (Auto) NONE (NEGATIVE) /HPF Urine Mucus (Auto) SLIGHT (NEGATIVE) /HPF Urine Culture Reflexed NO (NO) Urine Glucose NEGATIVE (NEGATIVE) mg/dL Urine Opiates Level (NEGATIVE) Ur Methadone (NEGATIVE) Urine Barbiturates (NEGATIVE) Ur Phencyclidine (PCP) (NEGATIVE) Urine Amphetamine (NEGATIVE) U Benzodiazepine Level (NEGATIVE) Urine Cocaine (NEGATIVE) Urine Marijuana (THC) (NEGATIVE) 12/03/18 Range/Units 11:20 WBC 5.9 (4.0-10.5) K/mm3 RBC 4.28 (4.1-5.4) M/mm3 Hgb 12.4 (12.0-16.0) gm/dl Hct 39.0 (35-47) % MCV 91.1 (78-100) fl MCH 29.0 (26-32) pg MCHC 31.8 L (32-36) g/dl RDW 14.0 (11.5-14.0) % Plt Count 401 (150-450) K/mm3 MPV 10.4 H (6-9.5) fl Gran % 61.3 (36.0-66.0) % Eos # (Auto) 0.09 (0-0.5) Absolute Lymphs (auto) 1.63 (1.0-4.6) Absolute Monos (auto) 0.53 (0.0-1.3) Lymphocytes % 27.7 (24.0-44.0) % Monocytes % 9.0 (0.0-12.0) % Eosinophils % 1.5 (0.00-5.0) % Basophils % 0.5 (0.0-0.4) % Absolute Granulocytes 3.60 (1.4-6.9) Basophils # 0.03 (0-0.4) PT (9.95-12.35) SECONDS INR (0.8-3.0) Sodium (137-145) mmol/L Potassium (3.5-5.1) mmol/L Chloride (98-107) mmol/L Carbon Dioxide (22-30) mmol/L Anion Gap (5-15) MEQ/L BUN (7-17) mg/dL Creatinine (0.52-1.04) mg/dL Estimated GFR ML/MIN Glucose (74-106) mg/dL Lactic Acid (0.4-2.0) Calcium (8.4-10.2) mg/dL Total Bilirubin (0.2-1.3) mg/dL AST (14-36) U/L ALT (0-35) U/L Alkaline Phosphatase (38-126) U/L Creatine Kinase (30-135) U/L Troponin I (0.000-0.034) ng/mL Serum Total Protein (6.3-8.2) g/dL Albumin (3.5-5.0) g/dL Amylase (30-110) U/L Lipase (23-300) U/L Urine Color (YELLOW) Urine Appearance (CLEAR) Urine pH (5-6) Ur Specific [place] (1.005-1.025) Urine Protein (Negative) Urine Ketones (NEGATIVE) Urine Blood (0-5) Sajan/ul Urine Nitrite (NEGATIVE) Urine Bilirubin (NEGATIVE) Urine Urobilinogen (0-1) mg/dL Ur Leukocyte Esterase (NEGATIVE) Urine WBC (Auto) (0-5) /HPF Urine RBC (Auto) (0-2) /HPF U Epithel Cells (Auto) (FEW) /HPF Urine Bacteria (Auto) (NEGATIVE) /HPF Urine Mucus (Auto) (NEGATIVE) /HPF Urine Culture Reflexed (NO) Urine Glucose (NEGATIVE) mg/dL Urine Opiates Level (NEGATIVE) Ur Methadone (NEGATIVE) Urine Barbiturates (NEGATIVE) Ur Phencyclidine (PCP) (NEGATIVE) Urine Amphetamine (NEGATIVE) U Benzodiazepine Level (NEGATIVE) Urine Cocaine (NEGATIVE) Urine Marijuana (THC) (NEGATIVE) - Progress Progress: improved Progress Note: 12/03/18 17:26 We reviewed all her results, labs and imaging, she improved after Dilaudid 1mg iv x2 (pain: 02/08 now from 06/10) no fever, vomiting, stable. We called Dr Suero' office at 14:05, unable to reach for a while, eventually it turned out everybody was out for a conference, his coverage is Dr Metcalf, whom we also contacted at [facility], discussed her case in details, and her current condition, he accepted patient to be transferred there, but they do not have bed until at earliest 23:00 Pm tonight. We informed patient about the plan she agreed, understood all risks and benefits of her transfer. We also called Dr Daniel, covering Dr Chong, discussed the situation in details, he agreed to admit patient to medical surgical floor for pain control. Patient was informed about this as well, and she agreed. She has been stable. Discussed with : Fredy Will see patient in: hospital (observation) Counseled pt/family regarding: lab results, diagnosis, rad results - Departure Departure Disposition: Observation Clinical Impression: Abdominal abscess Condition: Stable Critical Care Time: No Referrals: SINCERE CHONG [Primary Care Provider] -
[2018-12-03] MEDS ORDERED: Hydromorphone 1 mg/ml Ampule ONE ×2 (11:31→15:27)
[2018-12-03 11:37] LABS: BASOPHIL % 0.5 % (0.0-0.4); Basophil (Absolute #) 0.03 (0-0.4); Eosinophil % 1.5 % (0.00-5.0); Eosinophil (Absolute #) 0.09 (0-0.5); Granulocytes % 61.3 % (36.0-66.0); Hemoglobin 12.4 gm/dl (12.0-16.0); Lymphocyte (Absolute #) 1.63 (1.0-4.6); Lymphocytes % 27.7 % (24.0-44.0); Mean Cell Volume 91.1 fl (78-100); Mean Corpuscular Hgb Concent. 31.8 g/dl (32-36); Mean Platelet Volume 10.4 fl (6-9.5); Monocyte (Absolute #) 0.53 (0.0-1.3); Platelet Count 401 K/mm3 (150-450); Red Blood Count 4.28 M/mm3 (4.1-5.4); White Blood Count 5.9 K/mm3 (4.0-10.5)
[2018-12-03 11:39] LABS: INR 1.11 (0.8-3.0); PROTIME 12.9 SECONDS (9.95-12.35)
[2018-12-03 11:44] LABS: Appearance CLEAR (CLEAR); Bilirubin NEGATIVE (NEGATIVE); Blood NEGATIVE Ery/ul (0-5); Glucose NEGATIVE (NEGATIVE); Ketones NEGATIVE (NEGATIVE); Leukocyte Esterase NEGATIVE (NEGATIVE); Mucus SLIGHT /HPF (NEGATIVE); Nitrite NEGATIVE (NEGATIVE); Protein,Urine Dip NEGATIVE (Negative); Specific Gravity 1.016 (1.005-1.025); Urobilinogen 4 mg/dL (0-1)
[2018-12-03 11:44] LABS: ALBUMIN 3.8 g/dL (3.5-5.0); ALKALINE PHOSPHATASE 119 U/L (38-126); AMYLASE 86 U/L (30-110); ANION GAP 12.6 MEQ/L (5-15); BLOOD UREA NITROGEN 22 mg/dL (7-17); CHLORIDE 103 mmol/L (98-107); Calcium 9.7 mg/dL (8.4-10.2); Carbon Dioxide 30 mmol/L (22-30); Glucose 70 mg/dL (74-106); LIPASE 114 U/L (23-300); SGOT/AST 24 U/L (14-36); SGPT/ALT 21 U/L (0-35); SODIUM 140 mmol/L (137-145); Total Protein 8.3 g/dL (6.3-8.2)
[2018-12-03 11:53] LABS: Barbiturate,Urine NEGATIVE (NEGATIVE); Benzodiazepine,Urine NEGATIVE (NEGATIVE); Cocaine,Urine NEGATIVE (NEGATIVE); Methadone,Urine NEGATIVE (NEGATIVE); Opiate,Urine NEGATIVE (NEGATIVE); PCP,Urine NEGATIVE (NEGATIVE); THC,Urine NEGATIVE (NEGATIVE)
[2018-12-03 11:54] LABS: Amphetamine,Urine NEGATIVE (NEGATIVE)
[2018-12-03 11:57] LABS: CK-Creatinine Phosphokinase < 20 U/L (30-135)
--- NOTE | 2018-12-03 12:21 | XRAY ---
Indication: Abdomen pain. Comparison: October 14, 2018. Portable chest demonstrates normal heart, lungs, and bony thorax with new right arm PICC line.
--- NOTE | 2018-12-03 13:25 | XRAY ---
Indication: Right lower quadrant pain and nausea. Multiple contiguous axial images obtained through the abdomen and pelvis using 80 cc Isovue 300 contrast only. Comparison: November 16, 2018. Lung bases now demonstrates mild bibasilar dependent atelectasis. No infiltrate or effusion. Heart is not enlarged. Again gastric bypass surgery, cholecystectomy, and hysterectomy. There is now mild prominent biliary tree with common bile duct measuring 1.3 cm. Previous gallbladder fossa abscess appears smaller with now thickened wall. It overall measures 5.2 x 3.5 x 6.1 cm, previously 7 x 6.5 x 8.7 cm. No new free fluid/air. Noncontrasted bowel loops appear nonobstructed. Normal air-filled appendix. Elsewhere stable pancreatic head microcalcification, mild fatty liver, and nonobstructing left renal calculus. Remaining liver, pancreas, spleen, adrenal glands, kidneys, ureters, bladder, and aorta appear unremarkable. No pathologic retroperitoneal lymphadenopathy. Osseous structures intact again with degenerative changes throughout the spine and bilateral hip degenerative arthropathy. Impression: 1. Previous gallbladder fossa abscess appears smaller as detailed. 2. Interval increasing mild biliary tree prominence with common bile duct 1.3 cm. 3. Stable fatty liver, nonobstructing left renal micro-calculus, and pancreatic microcalcification. 4. Remaining CT abdomen/pelvis with contrast exam is negative. CT DI 21.96
[2018-12-03 14:40] LABS: TROPONIN < 0.012 ng/mL (0.000-0.034)
[2018-12-03] MEDS: Dextrose 5%-Lr IV Solution 1000 ML 1,000 ML IV SCH (19:39)
[2018-12-03] MEDS: DILAUDID 2 MG INJECTION IV PRN (20:05)
[2018-12-03] MEDS: Zofran 4 MG/2 ML VIAL IV PRN (20:06)
--- NOTE | 2018-12-03 20:20 | PCM.SSS ---
History of Present Illness - Chief Complaint Chief Complaint: abd pain History of Present Illness: is a 43 year old female with a history of intraabdominal abscess from a perforated ulcer cared for at over the last 6 weeks. She has had gastric bypass 9 months ago, the abscess she developed is apparently not accessible and has been treated with IV antibiotics at home for the last 3 weeks. Last night she developed severe/worsening pain in the RUQ with radiation to the back, she has had intermittent chills and subjective fever over the last few weeks. she is also receiving TPN at this time. - Review of Systems Constitutional: Fever, Chills Respiratory: No Cough, No Short Of Breath Cardiac: No Chest Pain, No Edema, No Syncope Abdominal/Gastrointestinal: Abdominal Pain, Nausea, No Vomiting, No Diarrhea, No Constipation Genitourinary Symptoms: No Dysuria Skin: No Rash All Other Systems: Reviewed and Negative Medications & Allergies Home Medications: Home Medication List Cyanocobalamin (Vitamin B-12) [Vitamin B-12] 1,000 mcg IM UD 01/13/15 [History Confirmed 12/03/18] Promethazine HCl 25 mg [Phenergan 25 mg] 25 mg PO Q4-6HPRN PRN #12 tablet 09/06/15 [Rx Confirmed 12/03/18] Aspirin [Aspirin EC] 81 mg PO DAILY #90 tablet. 06/20/16 [Rx Confirmed ] Imipramine HCl 75 mg PO HS 10/03/16 [History Confirmed 12/03/18] Albuterol Common Canister [Proventil Common Canister] 2 puff IH Q4H PRN [History Confirmed 12/03/18] Carvedilol 3.125 mg [Coreg 3.125 MG] 3.125 mg PO BID 02/18/17 [History Confirmed 12/03/18] Meclizine HCl 12.5 - 25 mg PO TIDPRN 02/19/17 [History Confirmed 12/03/18] Omeprazole 20 mg PO DAILY 02/19/17 [History Confirmed 12/03/18] Bupropion HCl Xl 150 mg [Wellbutrin XL 150 MG] 150 mg PO DAILY #0 tablet 02/20/17 [Rx Confirmed 12/03/18] Dicyclomine HCl [Bentyl] 10 mg PO QIDPRN PRN 03/18/17 [History Confirmed ] Ergocalciferol (Vitamin D2) [Vitamin D] 50,000 unit PO UD 03/18/17 [History Confirmed 12/03/18] Sucralfate 1 gm [Carafate 1 GM] 1 gm PO TID 03/18/17 [History Confirmed ] Atorvastatin Calcium [Lipitor] 20 mg PO DAILY 11/16/18 [History Confirmed ] Tizanidine HCl 4 mg [Zanaflex 4 MG] 4 mg PO TID 11/16/18 [History Confirmed 12/03/18] Amoxicillin/Potassium Clav [Amox Tr-K Clv 875-125 mg Tab] 1 each PO BID [History Confirmed 12/03/18] Fluconazole 200 mg PO BID 12/03/18 [History Confirmed 12/03/18] Oxycodone HCl 5 mg PO UD 12/03/18 [History Confirmed 12/03/18] Allergies/Adverse Reactions: Allergies Allergy/AdvReac Type Severity Reaction Status Date / Time flurbiprofen [From Ansaid] Allergy Severe Swelling Verified 12/03/18 10:53 morphine AdvReac Intermediate Itching Verified 12/03/18 10:53 - Past Medical History Past Medical History: Yes Neurological History: Migraines, Other ENT History: No Pertinent History Cardiac History: Angina, Hypertension, Other Respiratory History: Asthma Endocrine Medical History: Diabetes Type II Musculoskelatal History: Degenerative Disk Disease GI Medical History: Colitis, Diverticulosis, GERD, Gallbladder Disease History: Other Pyscho-Social History: Depression, Anxiety Reproductive Disorders: Menstrual Problems Comment: TYPE II DM," palpatations" MVP, VERTIGO. " black out spells" - Female History Hx Last Menstrual Period: hysterectomy Are you now?: No - Past Surgical History Past Surgical History: Yes Neuro Surgical History: No Pertinent History Cardiac History: Cardiac Catheterization Respiratory Surgery: No Pertinent History GI Surgical History: Other, Cholecystectomy Genitourinary Surgical Hx: No Pertinent History, Other Musculskeletal Surgical Hx: No Pertinent History Female Surgical History: Section, Hysterectomy, Tubal Ligation, Other Other Surgical History: Gastric Bypass 2009; Kidney balloon as child; Uteral ablation. perforated ulcer - Social History Smoking Status: Former smoker How long have you smoked: 15 years Exposure to second hand smoke: Yes Alcohol: None Drug Use: none - Physical Exam Vital Signs: Vital Signs - 24 hr Temp Pulse Resp BP Pulse Ox 12/03/18 19:35 98.1 F 74 20 138/81 100 12/03/18 17:54 98.1 F 74 20 138/81 100 12/03/18 17:31 99 12/03/18 17:00 74 16 125/79 97 12/03/18 15:30 73 16 129/93 94 L 12/03/18 15:00 70 16 128/78 96 12/03/18 13:44 78 16 105/78 98 12/03/18 12:14 75 16 110/77 99 12/03/18 10:41 97.3 F 113 H 18 121/86 99 General Appearance: no apparent distress, alert Neurologic Exam: alert, oriented x 3 Ears, Nose, Throat Exam: normal ENT inspection, TMs normal, pharynx normal, moist mucous membranes Neck Exam: normal inspection, non-tender, supple, full range of motion Respiratory Exam: normal breath sounds, lungs clear, No respiratory distress Cardiovascular Exam: regular rate/rhythm, normal heart sounds, normal peripheral pulses Gastrointestinal/Abdomen Exam: soft, tenderness (RUQ), No guarding, No rebound Extremity Exam: normal inspection, normal range of motion, pelvis stable Skin Exam: normal color, warm, dry, No rash Results - Labs Lab/Micro Results: Lab Results-Last 24 Hours 12/03/18 12/03/18 12/03/18 Range/Units 11:20 11:20 11:20 WBC 5.9 (4.0-10.5) K/mm3 RBC 4.28 (4.1-5.4) M/mm3 Hgb 12.4 (12.0-16.0) gm/dl Hct 39.0 (35-47) % MCV 91.1 (78-100) fl MCH 29.0 (26-32) pg MCHC 31.8 L (32-36) g/dl RDW 14.0 (11.5-14.0) % Plt Count 401 (150-450) K/mm3 MPV 10.4 H (6-9.5) fl Gran % 61.3 (36.0-66.0) % Eos # (Auto) 0.09 (0-0.5) Absolute Lymphs (auto) 1.63 (1.0-4.6) Absolute Monos (auto) 0.53 (0.0-1.3) Lymphocytes % 27.7 (24.0-44.0) % Monocytes % 9.0 (0.0-12.0) % Eosinophils % 1.5 (0.00-5.0) % Basophils % 0.5 (0.0-0.4) % Absolute Granulocytes 3.60 (1.4-6.9) Basophils # 0.03 (0-0.4) PT 12.9 H (9.95-12.35) SECONDS INR 1.11 (0.8-3.0) Sodium 140 (137-145) mmol/L Potassium 5.0 (3.5-5.1) mmol/L Chloride 103 (98-107) mmol/L Carbon Dioxide 30 (22-30) mmol/L Anion Gap 12.6 (5-15) MEQ/L BUN 22 H (7-17) mg/dL Creatinine 0.60 (0.52-1.04) mg/dL Estimated GFR > 60.0 ML/MIN Glucose 70 L (74-106) mg/dL Hemoglobin A1c (4.5-6.0) % Lactic Acid (0.4-2.0) Calcium 9.7 (8.4-10.2) mg/dL Total Bilirubin 0.40 (0.2-1.3) mg/dL AST 24 (14-36) U/L ALT 21 (0-35) U/L Alkaline Phosphatase 119 (38-126) U/L Creatine Kinase < 20 L (30-135) U/L Troponin I < 0.012 (0.000-0.034) ng/mL Serum Total Protein 8.3 H (6.3-8.2) g/dL Albumin 3.8 (3.5-5.0) g/dL Amylase 86 (30-110) U/L Lipase 114 (23-300) U/L Urine Color (YELLOW) Urine Appearance (CLEAR) Urine pH (5-6) Ur Specific [place] (1.005-1.025) Urine Protein (Negative) Urine Ketones (NEGATIVE) Urine Blood (0-5) Sajan/ul Urine Nitrite (NEGATIVE) Urine Bilirubin (NEGATIVE) Urine Urobilinogen (0-1) mg/dL Ur Leukocyte Esterase (NEGATIVE) Urine WBC (Auto) (0-5) /HPF Urine RBC (Auto) (0-2) /HPF U Epithel Cells (Auto) (FEW) /HPF Urine Bacteria (Auto) (NEGATIVE) /HPF Urine Mucus (Auto) (NEGATIVE) /HPF Urine Culture Reflexed (NO) Urine Glucose (NEGATIVE) mg/dL Urine Opiates Level (NEGATIVE) Ur Methadone (NEGATIVE) Urine Barbiturates (NEGATIVE) Ur Phencyclidine (PCP) (NEGATIVE) Urine Amphetamine (NEGATIVE) U Benzodiazepine Level (NEGATIVE) Urine Cocaine (NEGATIVE) Urine Marijuana (THC) (NEGATIVE) 12/03/18 12/03/18 12/03/18 Range/Units 11:27 11:27 11:28 WBC (4.0-10.5) K/mm3 RBC (4.1-5.4) M/mm3 Hgb (12.0-16.0) gm/dl Hct (35-47) % MCV (78-100) fl MCH (26-32) pg MCHC (32-36) g/dl RDW (11.5-14.0) % Plt Count (150-450) K/mm3 MPV (6-9.5) fl Gran % (36.0-66.0) % Eos # (Auto) (0-0.5) Absolute Lymphs (auto) (1.0-4.6) Absolute Monos (auto) (0.0-1.3) Lymphocytes % (24.0-44.0) % Monocytes % (0.0-12.0) % Eosinophils % (0.00-5.0) % Basophils % (0.0-0.4) % Absolute Granulocytes (1.4-6.9) Basophils # (0-0.4) PT (9.95-12.35) SECONDS INR (0.8-3.0) Sodium (137-145) mmol/L Potassium (3.5-5.1) mmol/L Chloride (98-107) mmol/L Carbon Dioxide (22-30) mmol/L Anion Gap (5-15) MEQ/L BUN (7-17) mg/dL Creatinine (0.52-1.04) mg/dL Estimated GFR ML/MIN Glucose (74-106) mg/dL Hemoglobin A1c (4.5-6.0) % Lactic Acid 1.4 (0.4-2.0) Calcium (8.4-10.2) mg/dL Total Bilirubin (0.2-1.3) mg/dL AST (14-36) U/L ALT (0-35) U/L Alkaline Phosphatase (38-126) U/L Creatine Kinase (30-135) U/L Troponin I (0.000-0.034) ng/mL Serum Total Protein (6.3-8.2) g/dL Albumin (3.5-5.0) g/dL Amylase (30-110) U/L Lipase (23-300) U/L Urine Color YELLOW (YELLOW) Urine Appearance CLEAR (CLEAR) Urine pH 6.0 (5-6) Ur Specific [place] 1.016 (1.005-1.025) Urine Protein NEGATIVE (Negative) Urine Ketones NEGATIVE (NEGATIVE) Urine Blood NEGATIVE (0-5) Sajan/ul Urine Nitrite NEGATIVE (NEGATIVE) Urine Bilirubin NEGATIVE (NEGATIVE) Urine Urobilinogen 4 (0-1) mg/dL Ur Leukocyte Esterase NEGATIVE (NEGATIVE) Urine WBC (Auto) NONE (0-5) /HPF Urine RBC (Auto) NONE (0-2) /HPF U Epithel Cells (Auto) NONE (FEW) /HPF Urine Bacteria (Auto) NONE (NEGATIVE) /HPF Urine Mucus (Auto) SLIGHT (NEGATIVE) /HPF Urine Culture Reflexed NO (NO) Urine Glucose NEGATIVE (NEGATIVE) mg/dL Urine Opiates Level NEGATIVE (NEGATIVE) Ur Methadone NEGATIVE (NEGATIVE) Urine Barbiturates NEGATIVE (NEGATIVE) Ur Phencyclidine (PCP) NEGATIVE (NEGATIVE) Urine Amphetamine NEGATIVE (NEGATIVE) U Benzodiazepine Level NEGATIVE (NEGATIVE) Urine Cocaine NEGATIVE (NEGATIVE) Urine Marijuana (THC) NEGATIVE (NEGATIVE) 12/03/18 12/03/18 Range/Units 14:35 Unknown WBC (4.0-10.5) K/mm3 RBC (4.1-5.4) M/mm3 Hgb (12.0-16.0) gm/dl Hct (35-47) % MCV (78-100) fl MCH (26-32) pg MCHC (32-36) g/dl RDW (11.5-14.0) % Plt Count (150-450) K/mm3 MPV (6-9.5) fl Gran % (36.0-66.0) % Eos # (Auto) (0-0.5) Absolute Lymphs (auto) (1.0-4.6) Absolute Monos (auto) (0.0-1.3) Lymphocytes % (24.0-44.0) % Monocytes % (0.0-12.0) % Eosinophils % (0.00-5.0) % Basophils % (0.0-0.4) % Absolute Granulocytes (1.4-6.9) Basophils # (0-0.4) PT (9.95-12.35) SECONDS INR (0.8-3.0) Sodium (137-145) mmol/L Potassium (3.5-5.1) mmol/L Chloride (98-107) mmol/L Carbon Dioxide (22-30) mmol/L Anion Gap (5-15) MEQ/L BUN (7-17) mg/dL Creatinine (0.52-1.04) mg/dL Estimated GFR ML/MIN Glucose (74-106) mg/dL Hemoglobin A1c 5.21 (4.5-6.0) % Lactic Acid (0.4-2.0) Calcium (8.4-10.2) mg/dL Total Bilirubin (0.2-1.3) mg/dL AST (14-36) U/L ALT (0-35) U/L Alkaline Phosphatase (38-126) U/L Creatine Kinase (30-135) U/L Troponin I < 0.012 (0.000-0.034) ng/mL Serum Total Protein (6.3-8.2) g/dL Albumin (3.5-5.0) g/dL Amylase (30-110) U/L Lipase (23-300) U/L Urine Color (YELLOW) Urine Appearance (CLEAR) Urine pH (5-6) Ur Specific [place] (1.005-1.025) Urine Protein (Negative) Urine Ketones (NEGATIVE) Urine Blood (0-5) Sajan/ul Urine Nitrite (NEGATIVE) Urine Bilirubin (NEGATIVE) Urine Urobilinogen (0-1) mg/dL Ur Leukocyte Esterase (NEGATIVE) Urine WBC (Auto) (0-5) /HPF Urine RBC (Auto) (0-2) /HPF U Epithel Cells (Auto) (FEW) /HPF Urine Bacteria (Auto) (NEGATIVE) /HPF Urine Mucus (Auto) (NEGATIVE) /HPF Urine Culture Reflexed (NO) Urine Glucose (NEGATIVE) mg/dL Urine Opiates Level (NEGATIVE) Ur Methadone (NEGATIVE) Urine Barbiturates (NEGATIVE) Ur Phencyclidine (PCP) (NEGATIVE) Urine Amphetamine (NEGATIVE) U Benzodiazepine Level (NEGATIVE) Urine Cocaine (NEGATIVE) Urine Marijuana (THC) (NEGATIVE) - Radiology Impressions Radiology Exams & Impressions: Radiology Procedures Category Date Time Status ABDOMEN AND PELVIS W CONTRAST [CT] Stat Exams 12/03/18 11:16 Completed CHEST 1 VIEW (PORTABLE) Stat Exams 12/03/18 11:15 Completed Assessment/Plan (1) Abdominal abscess Current Visit: Yes Status: Acute Assessment & Plan: continue current treatment, case was discussed with Dr Metcalf site promotion agent for patient's surgeon at [facility]. he agrees to accept in transfer but no current bed available. abscess is stable on ct and labs look good, concerning with prominence of biliary tree. will keep npo at this time. will add IV PPI, otherwise awaiting bed for transfer at this time. Code(s): [id number] - (2) Abdominal pain Current Visit: No Status: Acute Qualifiers: Abdominal location: periumbilical Qualified Code(s): R10.33 - Periumbilical pain Code(s): R10.9 - UNSPECIFIED ABDOMINAL PAIN (3) Postoperative intra-abdominal abscess Current Visit: No Status: Acute Code(s): T81.49XA - INFECTION FOLLOWING A PROCEDURE, OTHER SURGICAL SITE, INIT Hospital Summary - Vitals & Intake/Output Vital Signs: Vital Signs Temperature 98.1 F 12/03/18 19:35 Pulse Rate 74 12/03/18 19:35 Respiratory Rate 20 12/03/18 19:35 Blood Pressure 138/81 12/03/18 19:35 O2 Sat by Pulse Oximetry 100 12/03/18 19:35 Intake & Output: Intake & Output 12/01/18 12/02/18 12/03/18 12/04/18 11:59 11:59 11:59 11:59 Weight 85.275 kg 86.4 kg - Lab Result Diagrams: 12/03/18 11:20 12/03/18 11:20 Lab Results-Last 24 Hrs: Lab Results-Last 24 Hours 12/03/18 12/03/18 12/03/18 Range/Units 11:20 11:20 11:20 WBC 5.9 (4.0-10.5) K/mm3 RBC 4.28 (4.1-5.4) M/mm3 Hgb 12.4 (12.0-16.0) gm/dl Hct 39.0 (35-47) % MCV 91.1 (78-100) fl MCH 29.0 (26-32) pg MCHC 31.8 L (32-36) g/dl RDW 14.0 (11.5-14.0) % Plt Count 401 (150-450) K/mm3 MPV 10.4 H (6-9.5) fl Gran % 61.3 (36.0-66.0) % Eos # (Auto) 0.09 (0-0.5) Absolute Lymphs (auto) 1.63 (1.0-4.6) Absolute Monos (auto) 0.53 (0.0-1.3) Lymphocytes % 27.7 (24.0-44.0) % Monocytes % 9.0 (0.0-12.0) % Eosinophils % 1.5 (0.00-5.0) % Basophils % 0.5 (0.0-0.4) % Absolute Granulocytes 3.60 (1.4-6.9) Basophils # 0.03 (0-0.4) PT 12.9 H (9.95-12.35) SECONDS INR 1.11 (0.8-3.0) Sodium 140 (137-145) mmol/L Potassium 5.0 (3.5-5.1) mmol/L Chloride 103 (98-107) mmol/L Carbon Dioxide 30 (22-30) mmol/L Anion Gap 12.6 (5-15) MEQ/L BUN 22 H (7-17) mg/dL Creatinine 0.60 (0.52-1.04) mg/dL Estimated GFR > 60.0 ML/MIN Glucose 70 L (74-106) mg/dL Hemoglobin A1c (4.5-6.0) % Lactic Acid (0.4-2.0) Calcium 9.7 (8.4-10.2) mg/dL Total Bilirubin 0.40 (0.2-1.3) mg/dL AST 24 (14-36) U/L ALT 21 (0-35) U/L Alkaline Phosphatase 119 (38-126) U/L Creatine Kinase < 20 L (30-135) U/L Troponin I < 0.012 (0.000-0.034) ng/mL Serum Total Protein 8.3 H (6.3-8.2) g/dL Albumin 3.8 (3.5-5.0) g/dL Amylase 86 (30-110) U/L Lipase 114 (23-300) U/L Urine Color (YELLOW) Urine Appearance (CLEAR) Urine pH (5-6) Ur Specific [place] (1.005-1.025) Urine Protein (Negative) Urine Ketones (NEGATIVE) Urine Blood (0-5) Sajan/ul Urine Nitrite (NEGATIVE) Urine Bilirubin (NEGATIVE) Urine Urobilinogen (0-1) mg/dL Ur Leukocyte Esterase (NEGATIVE) Urine WBC (Auto) (0-5) /HPF Urine RBC (Auto) (0-2) /HPF U Epithel Cells (Auto) (FEW) /HPF Urine Bacteria (Auto) (NEGATIVE) /HPF Urine Mucus (Auto) (NEGATIVE) /HPF Urine Culture Reflexed (NO) Urine Glucose (NEGATIVE) mg/dL Urine Opiates Level (NEGATIVE) Ur Methadone (NEGATIVE) Urine Barbiturates (NEGATIVE) Ur Phencyclidine (PCP) (NEGATIVE) Urine Amphetamine (NEGATIVE) U Benzodiazepine Level (NEGATIVE) Urine Cocaine (NEGATIVE) Urine Marijuana (THC) (NEGATIVE) 12/03/18 12/03/18 12/03/18 Range/Units 11:27 11:27 11:28 WBC (4.0-10.5) K/mm3 RBC (4.1-5.4) M/mm3 Hgb (12.0-16.0) gm/dl Hct (35-47) % MCV (78-100) fl MCH (26-32) pg MCHC (32-36) g/dl RDW (11.5-14.0) % Plt Count (150-450) K/mm3 MPV (6-9.5) fl Gran % (36.0-66.0) % Eos # (Auto) (0-0.5) Absolute Lymphs (auto) (1.0-4.6) Absolute Monos (auto) (0.0-1.3) Lymphocytes % (24.0-44.0) % Monocytes % (0.0-12.0) % Eosinophils % (0.00-5.0) % Basophils % (0.0-0.4) % Absolute Granulocytes (1.4-6.9) Basophils # (0-0.4) PT (9.95-12.35) SECONDS INR (0.8-3.0) Sodium (137-145) mmol/L Potassium (3.5-5.1) mmol/L Chloride (98-107) mmol/L Carbon Dioxide (22-30) mmol/L Anion Gap (5-15) MEQ/L BUN (7-17) mg/dL Creatinine (0.52-1.04) mg/dL Estimated GFR ML/MIN Glucose (74-106) mg/dL Hemoglobin A1c (4.5-6.0) % Lactic Acid 1.4 (0.4-2.0) Calcium (8.4-10.2) mg/dL Total Bilirubin (0.2-1.3) mg/dL AST (14-36) U/L ALT (0-35) U/L Alkaline Phosphatase (38-126) U/L Creatine Kinase (30-135) U/L Troponin I (0.000-0.034) ng/mL Serum Total Protein (6.3-8.2) g/dL Albumin (3.5-5.0) g/dL Amylase (30-110) U/L Lipase (23-300) U/L Urine Color YELLOW (YELLOW) Urine Appearance CLEAR (CLEAR) Urine pH 6.0 (5-6) Ur Specific [place] 1.016 (1.005-1.025) Urine Protein NEGATIVE (Negative) Urine Ketones NEGATIVE (NEGATIVE) Urine Blood NEGATIVE (0-5) Sajan/ul Urine Nitrite NEGATIVE (NEGATIVE) Urine Bilirubin NEGATIVE (NEGATIVE) Urine Urobilinogen 4 (0-1) mg/dL Ur Leukocyte Esterase NEGATIVE (NEGATIVE) Urine WBC (Auto) NONE (0-5) /HPF Urine RBC (Auto) NONE (0-2) /HPF U Epithel Cells (Auto) NONE (FEW) /HPF Urine Bacteria (Auto) NONE (NEGATIVE) /HPF Urine Mucus (Auto) SLIGHT (NEGATIVE) /HPF Urine Culture Reflexed NO (NO) Urine Glucose NEGATIVE (NEGATIVE) mg/dL Urine Opiates Level NEGATIVE (NEGATIVE) Ur Methadone NEGATIVE (NEGATIVE) Urine Barbiturates NEGATIVE (NEGATIVE) Ur Phencyclidine (PCP) NEGATIVE (NEGATIVE) Urine Amphetamine NEGATIVE (NEGATIVE) U Benzodiazepine Level NEGATIVE (NEGATIVE) Urine Cocaine NEGATIVE (NEGATIVE) Urine Marijuana (THC) NEGATIVE (NEGATIVE) 12/03/18 12/03/18 Range/Units 14:35 Unknown WBC (4.0-10.5) K/mm3 RBC (4.1-5.4) M/mm3 Hgb (12.0-16.0) gm/dl Hct (35-47) % MCV (78-100) fl MCH (26-32) pg MCHC (32-36) g/dl RDW (11.5-14.0) % Plt Count (150-450) K/mm3 MPV (6-9.5) fl Gran % (36.0-66.0) % Eos # (Auto) (0-0.5) Absolute Lymphs (auto) (1.0-4.6) Absolute Monos (auto) (0.0-1.3) Lymphocytes % (24.0-44.0) % Monocytes % (0.0-12.0) % Eosinophils % (0.00-5.0) % Basophils % (0.0-0.4) % Absolute Granulocytes (1.4-6.9) Basophils # (0-0.4) PT (9.95-12.35) SECONDS INR (0.8-3.0) Sodium (137-145) mmol/L Potassium (3.5-5.1) mmol/L Chloride (98-107) mmol/L Carbon Dioxide (22-30) mmol/L Anion Gap (5-15) MEQ/L BUN (7-17) mg/dL Creatinine (0.52-1.04) mg/dL Estimated GFR ML/MIN Glucose (74-106) mg/dL Hemoglobin A1c 5.21 (4.5-6.0) % Lactic Acid (0.4-2.0) Calcium (8.4-10.2) mg/dL Total Bilirubin (0.2-1.3) mg/dL AST (14-36) U/L ALT (0-35) U/L Alkaline Phosphatase (38-126) U/L Creatine Kinase (30-135) U/L Troponin I < 0.012 (0.000-0.034) ng/mL Serum Total Protein (6.3-8.2) g/dL Albumin (3.5-5.0) g/dL Amylase (30-110) U/L Lipase (23-300) U/L Urine Color (YELLOW) Urine Appearance (CLEAR) Urine pH (5-6) Ur Specific [place] (1.005-1.025) Urine Protein (Negative) Urine Ketones (NEGATIVE) Urine Blood (0-5) Sajan/ul Urine Nitrite (NEGATIVE) Urine Bilirubin (NEGATIVE) Urine Urobilinogen (0-1) mg/dL Ur Leukocyte Esterase (NEGATIVE) Urine WBC (Auto) (0-5) /HPF Urine RBC (Auto) (0-2) /HPF U Epithel Cells (Auto) (FEW) /HPF Urine Bacteria (Auto) (NEGATIVE) /HPF Urine Mucus (Auto) (NEGATIVE) /HPF Urine Culture Reflexed (NO) Urine Glucose (NEGATIVE) mg/dL Urine Opiates Level (NEGATIVE) Ur Methadone (NEGATIVE) Urine Barbiturates (NEGATIVE) Ur Phencyclidine (PCP) (NEGATIVE) Urine Amphetamine (NEGATIVE) U Benzodiazepine Level (NEGATIVE) Urine Cocaine (NEGATIVE) Urine Marijuana (THC) (NEGATIVE) - Radiology Exams Ordered Rad Exams-Entire Visit: Radiology Procedures Category Date Time Status ABDOMEN AND PELVIS W CONTRAST [CT] Stat Exams 12/03/18 11:16 Completed CHEST 1 VIEW (PORTABLE) Stat Exams 12/03/18 11:15 Completed - Discharge Disposition: XFER OTHER Condition: Stable Prescriptions: No Action Cyanocobalamin (Vitamin B-12) [Vitamin B-12] 1,000 mcg IM UD Promethazine HCl 25 mg [Phenergan 25 mg] 25 mg PO Q4-6HPRN PRN #12 tablet PRN Reason: nausea and vomiting Aspirin [Aspirin EC] 81 mg PO DAILY #90 tablet. Imipramine HCl 75 mg PO HS Albuterol Common Canister [Proventil Common Canister] 2 puff IH Q4H PRN PRN Reason: Asthma Carvedilol 3.125 mg [Coreg 3.125 MG] 3.125 mg PO BID Omeprazole 20 mg PO DAILY Meclizine HCl 12.5 - 25 mg PO TIDPRN Bupropion HCl Xl 150 mg [Wellbutrin XL 150 MG] 150 mg PO DAILY #0 tablet Dicyclomine HCl [Bentyl] 10 mg PO QIDPRN PRN PRN Reason: Diarrhea Ergocalciferol (Vitamin D2) [Vitamin D] 50,000 unit PO UD Sucralfate 1 gm [Carafate 1 GM] 1 gm PO TID Atorvastatin Calcium [Lipitor] 20 mg PO DAILY Tizanidine HCl 4 mg [Zanaflex 4 MG] 4 mg PO TID Amoxicillin/Potassium Clav [Amox Tr-K Clv 875-125 mg Tab] 1 each PO BID Fluconazole 200 mg PO BID Oxycodone HCl 5 mg PO UD
[2018-12-03] MEDS ORDERED: PROTONIX 40 MG IV IV SCH (20:30)
[2018-12-03] MEDS: Augmentin 875-125 Tablet PO SCH (21:54)
[2018-12-03] MEDS: Diflucan 100 MG PO SCH (21:57)
[2018-12-04] MEDS: DILAUDID 2 MG INJECTION IV PRN ×3 (00:13→08:34)
[2018-12-04] MEDS: Dextrose 5%-Lr IV Solution 1000 ML 1,000 ML IV SCH (05:29)
[2018-12-04 06:39] LABS: BASOPHIL % 0.7 % (0.0-0.4); Basophil (Absolute #) 0.03 (0-0.4); Eosinophil % 2.7 % (0.00-5.0); Eosinophil (Absolute #) 0.12 (0-0.5); Granulocytes % 55.9 % (36.0-66.0); Hematocrit 36.2 % (35-47); Hemoglobin 11.2 gm/dl (12.0-16.0); Lymphocyte (Absolute #) 1.37 (1.0-4.6); Lymphocytes % 30.6 % (24.0-44.0); Mean Cell Volume 91.6 fl (78-100); Mean Corpuscular Hgb Concent. 30.9 g/dl (32-36); Mean Platelet Volume 10.7 fl (6-9.5); Monocyte (Absolute #) 0.45 (0.0-1.3); Monocytes % 10.1 % (0.0-12.0); Platelet Count 346 K/mm3 (150-450); Red Blood Count 3.95 M/mm3 (4.1-5.4); Red Cell Distribution Width 13.7 % (11.5-14.0); White Blood Count 4.5 K/mm3 (4.0-10.5)
[2018-12-04 06:45] LABS: Mean Corpuscular Hemoglobin 28.3 pg (26-32)
[2018-12-04 06:47] VITALS: BP 111/67; PULSE 62; O2SAT 96
[2018-12-04 07:00] LABS: ALBUMIN 3.3 g/dL (3.5-5.0); ALKALINE PHOSPHATASE 101 U/L (38-126); ANION GAP 11.3 MEQ/L (5-15); BLOOD UREA NITROGEN 15 mg/dL (7-17); CHLORIDE 102 mmol/L (98-107); Calcium 9.3 mg/dL (8.4-10.2); Carbon Dioxide 30 mmol/L (22-30); Creatinine 1 0.66 mg/dL (0.52-1.04); Glucose 101 mg/dL (74-106); Potassium 4.4 mmol/L (3.5-5.1); SGOT/AST 22 U/L (14-36); SGPT/ALT 17 U/L (0-35); SODIUM 139 mmol/L (137-145); Total Protein 7.4 g/dL (6.3-8.2)
[2018-12-04] MEDS ORDERED: PROVENTIL COMMON CANISTER IH PRN (07:10)
[2018-12-04] MEDS ORDERED: GlucaGen 1 MG IM PRN (07:15)
[2018-12-04] MEDS ORDERED: D50W 50 ml Abboject IV PRN (07:15)
[2018-12-04] MEDS ORDERED: Glutose 15 GM ORAL GEL PO PRN (07:15)
--- NOTE | 2018-12-04 08:09 | PCM.DS ---
Discharge Summary Date of Admission: 12/03/18 17:43 Admitting Physician: LEI ALEXANDER Primary Care Provider: SINCERE LEHMAN Allergies Allergies flurbiprofen [From Ansaid] Allergy (Severe, Verified 12/03/18 10:53) Swelling she can take other nsaids morphine Adverse Reaction (Intermediate, Verified 12/03/18 10:53) Itching "I've never been told im allergic to to it but it makes me itch and i don't like how it makes me feel" Hospital Summary - Hospital Course Hospital Course: patient admitted with increasing abdominal pain, hx of perforated ulcer with intraabdominal abscess. surgery at waiting on bed so kept her in obs for pain control, NPO. receiving TPN and antibiotics at home. no fever, labs reassuring - Vitals & Intake/Output Vital Signs: Vital Signs Temperature 97.8 F 12/04/18 06:45 Pulse Rate 62 12/04/18 06:45 Respiratory Rate 18 12/04/18 06:45 Blood Pressure 111/67 12/04/18 06:45 O2 Sat by Pulse Oximetry 96 12/04/18 06:45 Intake & Output: Intake & Output 12/01/18 12/02/18 12/03/18 12/04/18 11:59 11:59 11:59 11:59 Intake Total 790 Output Total 1700 Balance -910 Weight 85.275 kg 86.4 kg - Lab Result Diagrams: 12/04/18 06:05 12/04/18 06:05 Lab Results-Last 24 Hrs: Accuchecks Accucheck Value: 102 Accucheck Value: 102 Lab Results-Last 24 Hours 12/03/18 12/03/18 12/03/18 Range/Units 11:20 11:20 11:20 WBC 5.9 (4.0-10.5) K/mm3 RBC 4.28 (4.1-5.4) M/mm3 Hgb 12.4 (12.0-16.0) gm/dl Hct 39.0 (35-47) % MCV 91.1 (78-100) fl MCH 29.0 (26-32) pg MCHC 31.8 L (32-36) g/dl RDW 14.0 (11.5-14.0) % Plt Count 401 (150-450) K/mm3 MPV 10.4 H (6-9.5) fl Gran % 61.3 (36.0-66.0) % Eos # (Auto) 0.09 (0-0.5) Absolute Lymphs (auto) 1.63 (1.0-4.6) Absolute Monos (auto) 0.53 (0.0-1.3) Lymphocytes % 27.7 (24.0-44.0) % Monocytes % 9.0 (0.0-12.0) % Eosinophils % 1.5 (0.00-5.0) % Basophils % 0.5 (0.0-0.4) % Absolute Granulocytes 3.60 (1.4-6.9) Basophils # 0.03 (0-0.4) PT 12.9 H (9.95-12.35) SECONDS INR 1.11 (0.8-3.0) Sodium 140 (137-145) mmol/L Potassium 5.0 (3.5-5.1) mmol/L Chloride 103 (98-107) mmol/L Carbon Dioxide 30 (22-30) mmol/L Anion Gap 12.6 (5-15) MEQ/L BUN 22 H (7-17) mg/dL Creatinine 0.60 (0.52-1.04) mg/dL Estimated GFR > 60.0 ML/MIN Glucose 70 L (74-106) mg/dL Hemoglobin A1c (4.5-6.0) % Lactic Acid (0.4-2.0) Calcium 9.7 (8.4-10.2) mg/dL Total Bilirubin 0.40 (0.2-1.3) mg/dL AST 24 (14-36) U/L ALT 21 (0-35) U/L Alkaline Phosphatase 119 (38-126) U/L Creatine Kinase < 20 L (30-135) U/L Troponin I < 0.012 (0.000-0.034) ng/mL Serum Total Protein 8.3 H (6.3-8.2) g/dL Albumin 3.8 (3.5-5.0) g/dL Amylase 86 (30-110) U/L Lipase 114 (23-300) U/L Urine Color (YELLOW) Urine Appearance (CLEAR) Urine pH (5-6) Ur Specific [place] (1.005-1.025) Urine Protein (Negative) Urine Ketones (NEGATIVE) Urine Blood (0-5) Sajan/ul Urine Nitrite (NEGATIVE) Urine Bilirubin (NEGATIVE) Urine Urobilinogen (0-1) mg/dL Ur Leukocyte Esterase (NEGATIVE) Urine WBC (Auto) (0-5) /HPF Urine RBC (Auto) (0-2) /HPF U Epithel Cells (Auto) (FEW) /HPF Urine Bacteria (Auto) (NEGATIVE) /HPF Urine Mucus (Auto) (NEGATIVE) /HPF Urine Culture Reflexed (NO) Urine Glucose (NEGATIVE) mg/dL Urine Opiates Level (NEGATIVE) Ur Methadone (NEGATIVE) Urine Barbiturates (NEGATIVE) Ur Phencyclidine (PCP) (NEGATIVE) Urine Amphetamine (NEGATIVE) U Benzodiazepine Level (NEGATIVE) Urine Cocaine (NEGATIVE) Urine Marijuana (THC) (NEGATIVE) 12/03/18 12/03/18 12/03/18 Range/Units 11:27 11:27 11:28 WBC (4.0-10.5) K/mm3 RBC (4.1-5.4) M/mm3 Hgb (12.0-16.0) gm/dl Hct (35-47) % MCV (78-100) fl MCH (26-32) pg MCHC (32-36) g/dl RDW (11.5-14.0) % Plt Count (150-450) K/mm3 MPV (6-9.5) fl Gran % (36.0-66.0) % Eos # (Auto) (0-0.5) Absolute Lymphs (auto) (1.0-4.6) Absolute Monos (auto) (0.0-1.3) Lymphocytes % (24.0-44.0) % Monocytes % (0.0-12.0) % Eosinophils % (0.00-5.0) % Basophils % (0.0-0.4) % Absolute Granulocytes (1.4-6.9) Basophils # (0-0.4) PT (9.95-12.35) SECONDS INR (0.8-3.0) Sodium (137-145) mmol/L Potassium (3.5-5.1) mmol/L Chloride (98-107) mmol/L Carbon Dioxide (22-30) mmol/L Anion Gap (5-15) MEQ/L BUN (7-17) mg/dL Creatinine (0.52-1.04) mg/dL Estimated GFR ML/MIN Glucose (74-106) mg/dL Hemoglobin A1c (4.5-6.0) % Lactic Acid 1.4 (0.4-2.0) Calcium (8.4-10.2) mg/dL Total Bilirubin (0.2-1.3) mg/dL AST (14-36) U/L ALT (0-35) U/L Alkaline Phosphatase (38-126) U/L Creatine Kinase (30-135) U/L Troponin I (0.000-0.034) ng/mL Serum Total Protein (6.3-8.2) g/dL Albumin (3.5-5.0) g/dL Amylase (30-110) U/L Lipase (23-300) U/L Urine Color YELLOW (YELLOW) Urine Appearance CLEAR (CLEAR) Urine pH 6.0 (5-6) Ur Specific [place] 1.016 (1.005-1.025) Urine Protein NEGATIVE (Negative) Urine Ketones NEGATIVE (NEGATIVE) Urine Blood NEGATIVE (0-5) Sajan/ul Urine Nitrite NEGATIVE (NEGATIVE) Urine Bilirubin NEGATIVE (NEGATIVE) Urine Urobilinogen 4 (0-1) mg/dL Ur Leukocyte Esterase NEGATIVE (NEGATIVE) Urine WBC (Auto) NONE (0-5) /HPF Urine RBC (Auto) NONE (0-2) /HPF U Epithel Cells (Auto) NONE (FEW) /HPF Urine Bacteria (Auto) NONE (NEGATIVE) /HPF Urine Mucus (Auto) SLIGHT (NEGATIVE) /HPF Urine Culture Reflexed NO (NO) Urine Glucose NEGATIVE (NEGATIVE) mg/dL Urine Opiates Level NEGATIVE (NEGATIVE) Ur Methadone NEGATIVE (NEGATIVE) Urine Barbiturates NEGATIVE (NEGATIVE) Ur Phencyclidine (PCP) NEGATIVE (NEGATIVE) Urine Amphetamine NEGATIVE (NEGATIVE) U Benzodiazepine Level NEGATIVE (NEGATIVE) Urine Cocaine NEGATIVE (NEGATIVE) Urine Marijuana (THC) NEGATIVE (NEGATIVE) 12/03/18 12/03/18 12/04/18 Range/Units 14:35 Unknown 06:05 WBC 4.5 (4.0-10.5) K/mm3 RBC 3.95 L (4.1-5.4) M/mm3 Hgb 11.2 L (12.0-16.0) gm/dl Hct 36.2 (35-47) % MCV 91.6 (78-100) fl MCH 28.3 (26-32) pg MCHC 30.9 L (32-36) g/dl RDW 13.7 (11.5-14.0) % Plt Count 346 (150-450) K/mm3 MPV 10.7 H (6-9.5) fl Gran % 55.9 (36.0-66.0) % Eos # (Auto) 0.12 (0-0.5) Absolute Lymphs (auto) 1.37 (1.0-4.6) Absolute Monos (auto) 0.45 (0.0-1.3) Lymphocytes % 30.6 (24.0-44.0) % Monocytes % 10.1 (0.0-12.0) % Eosinophils % 2.7 (0.00-5.0) % Basophils % 0.7 (0.0-0.4) % Absolute Granulocytes 2.50 (1.4-6.9) Basophils # 0.03 (0-0.4) PT (9.95-12.35) SECONDS INR (0.8-3.0) Sodium (137-145) mmol/L Potassium (3.5-5.1) mmol/L Chloride (98-107) mmol/L Carbon Dioxide (22-30) mmol/L Anion Gap (5-15) MEQ/L BUN (7-17) mg/dL Creatinine (0.52-1.04) mg/dL Estimated GFR ML/MIN Glucose (74-106) mg/dL Hemoglobin A1c 5.21 (4.5-6.0) % Lactic Acid (0.4-2.0) Calcium (8.4-10.2) mg/dL Total Bilirubin (0.2-1.3) mg/dL AST (14-36) U/L ALT (0-35) U/L Alkaline Phosphatase (38-126) U/L Creatine Kinase (30-135) U/L Troponin I < 0.012 (0.000-0.034) ng/mL Serum Total Protein (6.3-8.2) g/dL Albumin (3.5-5.0) g/dL Amylase (30-110) U/L Lipase (23-300) U/L Urine Color (YELLOW) Urine Appearance (CLEAR) Urine pH (5-6) Ur Specific [place] (1.005-1.025) Urine Protein (Negative) Urine Ketones (NEGATIVE) Urine Blood (0-5) Sajan/ul Urine Nitrite (NEGATIVE) Urine Bilirubin (NEGATIVE) Urine Urobilinogen (0-1) mg/dL Ur Leukocyte Esterase (NEGATIVE) Urine WBC (Auto) (0-5) /HPF Urine RBC (Auto) (0-2) /HPF U Epithel Cells (Auto) (FEW) /HPF Urine Bacteria (Auto) (NEGATIVE) /HPF Urine Mucus (Auto) (NEGATIVE) /HPF Urine Culture Reflexed (NO) Urine Glucose (NEGATIVE) mg/dL Urine Opiates Level (NEGATIVE) Ur Methadone (NEGATIVE) Urine Barbiturates (NEGATIVE) Ur Phencyclidine (PCP) (NEGATIVE) Urine Amphetamine (NEGATIVE) U Benzodiazepine Level (NEGATIVE) Urine Cocaine (NEGATIVE) Urine Marijuana (THC) (NEGATIVE) 12/04/18 12/04/18 Range/Units 06:05 06:22 WBC (4.0-10.5) K/mm3 RBC (4.1-5.4) M/mm3 Hgb (12.0-16.0) gm/dl Hct (35-47) % MCV (78-100) fl MCH (26-32) pg MCHC (32-36) g/dl RDW (11.5-14.0) % Plt Count (150-450) K/mm3 MPV (6-9.5) fl Gran % (36.0-66.0) % Eos # (Auto) (0-0.5) Absolute Lymphs (auto) (1.0-4.6) Absolute Monos (auto) (0.0-1.3) Lymphocytes % (24.0-44.0) % Monocytes % (0.0-12.0) % Eosinophils % (0.00-5.0) % Basophils % (0.0-0.4) % Absolute Granulocytes (1.4-6.9) Basophils # (0-0.4) PT (9.95-12.35) SECONDS INR (0.8-3.0) Sodium 139 (137-145) mmol/L Potassium 4.4 (3.5-5.1) mmol/L Chloride 102 (98-107) mmol/L Carbon Dioxide 30 (22-30) mmol/L Anion Gap 11.3 (5-15) MEQ/L BUN 15 (7-17) mg/dL Creatinine 0.66 (0.52-1.04) mg/dL Estimated GFR > 60.0 ML/MIN Glucose 101 (74-106) mg/dL Hemoglobin A1c (4.5-6.0) % Lactic Acid 0.9 (0.4-2.0) Calcium 9.3 (8.4-10.2) mg/dL Total Bilirubin 0.40 (0.2-1.3) mg/dL AST 22 (14-36) U/L ALT 17 (0-35) U/L Alkaline Phosphatase 101 (38-126) U/L Creatine Kinase (30-135) U/L Troponin I (0.000-0.034) ng/mL Serum Total Protein 7.4 (6.3-8.2) g/dL Albumin 3.3 L (3.5-5.0) g/dL Amylase (30-110) U/L Lipase (23-300) U/L Urine Color (YELLOW) Urine Appearance (CLEAR) Urine pH (5-6) Ur Specific [place] (1.005-1.025) Urine Protein (Negative) Urine Ketones (NEGATIVE) Urine Blood (0-5) Sajan/ul Urine Nitrite (NEGATIVE) Urine Bilirubin (NEGATIVE) Urine Urobilinogen (0-1) mg/dL Ur Leukocyte Esterase (NEGATIVE) Urine WBC (Auto) (0-5) /HPF Urine RBC (Auto) (0-2) /HPF U Epithel Cells (Auto) (FEW) /HPF Urine Bacteria (Auto) (NEGATIVE) /HPF Urine Mucus (Auto) (NEGATIVE) /HPF Urine Culture Reflexed (NO) Urine Glucose (NEGATIVE) mg/dL Urine Opiates Level (NEGATIVE) Ur Methadone (NEGATIVE) Urine Barbiturates (NEGATIVE) Ur Phencyclidine (PCP) (NEGATIVE) Urine Amphetamine (NEGATIVE) U Benzodiazepine Level (NEGATIVE) Urine Cocaine (NEGATIVE) Urine Marijuana (THC) (NEGATIVE) Micro Results-Entire Visit: Accuchecks Accucheck Value: 102 Accucheck Value: 102 - Radiology Exams Ordered Rad Exams-Entire Visit: Radiology Procedures Category Date Time Status ABDOMEN AND PELVIS W CONTRAST [CT] Stat Exams 12/03/18 11:16 Completed CHEST 1 VIEW (PORTABLE) Stat Exams 12/03/18 11:15 Completed Discharge Exam General Appearance: no apparent distress Neurologic Exam: alert, oriented x 3 Skin Exam: normal color, warm, dry Eye Exam: PERRL, EOMI, eyes nml inspection Respiratory Exam: normal breath sounds, lungs clear, No respiratory distress Cardiovascular Exam: regular rate/rhythm, normal heart sounds Gastrointestinal/Abdomen Exam: tenderness (RUQ), No distention, No guarding, No rebound Extremity Exam: normal inspection, normal range of motion Final Diagnosis/Problem List - Final Discharge Diagnosis/Problem (1) Abdominal abscess Current Visit: Yes Status: Acute Assessment & Plan: will transfer to when bed available today Code(s): JKP0090 - (2) Abdominal pain Current Visit: No Status: Acute Code(s): R10.9 - UNSPECIFIED ABDOMINAL PAIN (3) Postoperative intra-abdominal abscess Current Visit: No Status: Acute Code(s): T81.49XA - INFECTION FOLLOWING A PROCEDURE, OTHER SURGICAL SITE, INIT - Discharge Disposition: XFER OTHER Condition: Stable Prescriptions: No Action Cyanocobalamin (Vitamin B-12) [Vitamin B-12] 1,000 mcg IM UD Promethazine HCl 25 mg [Phenergan 25 mg] 25 mg PO Q4-6HPRN PRN #12 tablet PRN Reason: nausea and vomiting Aspirin [Aspirin EC] 81 mg PO DAILY #90 tablet. Imipramine HCl 75 mg PO HS Albuterol Common Canister [Proventil Common Canister] 2 puff IH Q4H PRN PRN Reason: Asthma Carvedilol 3.125 mg [Coreg 3.125 MG] 3.125 mg PO BID Omeprazole 20 mg PO DAILY Meclizine HCl 12.5 - 25 mg PO TIDPRN Bupropion HCl Xl 150 mg [Wellbutrin XL 150 MG] 150 mg PO DAILY #0 tablet Dicyclomine HCl [Bentyl] 10 mg PO QIDPRN PRN PRN Reason: Diarrhea Ergocalciferol (Vitamin D2) [Vitamin D] 50,000 unit PO UD Sucralfate 1 gm [Carafate 1 GM] 1 gm PO TID Atorvastatin Calcium [Lipitor] 20 mg PO DAILY Tizanidine HCl 4 mg [Zanaflex 4 MG] 4 mg PO TID Amoxicillin/Potassium Clav [Amox Tr-K Clv 875-125 mg Tab] 1 each PO BID Fluconazole 200 mg PO BID Oxycodone HCl 5 mg PO UD
[2018-12-04] MEDS: Zofran 4 MG/2 ML VIAL IV PRN (08:11)
[2018-12-04] MEDS: Augmentin 875-125 Tablet PO SCH (08:35)
[2018-12-04] MEDS: Diflucan 100 MG PO SCH (08:36)
[2018-12-04] MEDS ORDERED: ENOXAPARIN SODIUM SQ SCH (10:00)
== END 2018-12-04 09:45 ==
LOC: ED 10:38 → MED SURG 17:43
PROVIDERS: ADMIT Family Medicine; ATTEND Family Medicine
DX: T81.43XA Infection following a procedure, organ and space surgical site, initial encounter (principal); K65.1 Peritoneal abscess; I10 Essential (primary) hypertension; E11.9 Type 2 diabetes mellitus without complications; Z79.899 Other long term (current) drug therapy; Z98.890 Other specified postprocedural states; Z98.84 Bariatric surgery status; R10.9 Unspecified abdominal pain
CPT/HCPCS: 36415; 71045; 74177; 80053; 80307; 81001; 82150; 82550; 82962; 83036; 83605; 83690; 84484; 85025; 85610; 93005; 96360; 96374; 96375; 99285; G0378; Q9967; J1170; J1650; J2405; A9270-GY

== ENCOUNTER 2018-12-22 18:34 | Emergency (ER) | payer OTHER ==
[2018-12-22] MEDS ORDERED: Sodium Chloride 0.9% 1000 ML 1,000 ML IV STA (19:21)
[2018-12-22] MEDS ORDERED: Pepcid 20 MG VIAL IV ONE ×2 (19:21→20:46)
[2018-12-22] MEDS ORDERED: Zofran 4 MG/2 ML VIAL IV ONE (19:21)
--- NOTE | 2018-12-22 20:04 | ERPHSYRPT ---
- History of Present Illness Time Seen by Provider: 12/22/18 19:05 Historian: patient Patient Subjective Stated Complaint: Pt states "I had abdominal surgery on , then I got an internal abdominal abscess in october. I just got out of the hospital at [facility] 2 weeks ago for this abscess, they say it is still there but to close to the liver to put a drain in. I am having abdominal pain that is close to the site where I had surgery and I am scared." Triage Nursing Assessment: Pt alert and oriented X 3, skin pwd. Pt ambulates with an upright steady gait, able to speak in clear full sentences. 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 PT in no apparent respiratory distress. Physician History: 43 y/o white female presents with abd pain and nausea. pt had a revision of a gastric bypass in oct 2018 and then a postop abscess found in October 2018. she is on tpn tx and iv antibx. she is concerned about another issues. additionally , she received a call from her surgeons office and has not communicated and not sure what the issue was so she came in for evaluation Timing/Duration: today Quality: burning Pain Radiation: epigastric Severity of Pain-Max: mild Severity of Pain-Current: mild Modifying Factors: Improves With: nothing Associated Symptoms: nausea Previous symptoms: same symptoms as today Allergies/Adverse Reactions: flurbiprofen [From Ansaid] Allergy (Severe, Verified 12/03/18 10:53) Swelling she can take other nsaids morphine Adverse Reaction (Intermediate, Verified 12/03/18 10:53) Itching "I've never been told im allergic to to it but it makes me itch and i don't like how it makes me feel" Home Medications: Cyanocobalamin (Vitamin B-12) [Vitamin B-12] 1,000 mcg IM UD 01/13/15 [History] Imipramine HCl 75 mg PO HS 10/03/16 [History] Albuterol Common Canister [Proventil Common Canister] 2 puff IH Q4H PRN [History] Meclizine HCl 12.5 - 25 mg PO TIDPRN 02/19/17 [History] Omeprazole 20 mg PO DAILY 02/19/17 [History] Dicyclomine HCl [Bentyl] 10 mg PO QIDPRN PRN 03/18/17 [History] Ergocalciferol (Vitamin D2) [Vitamin D] 50,000 unit PO UD 03/18/17 [History] Atorvastatin Calcium [Lipitor] 20 mg PO DAILY 11/16/18 [History] Tizanidine HCl 4 mg [Zanaflex 4 MG] 4 mg PO TID 11/16/18 [History] Fluconazole 200 mg PO BID 12/03/18 [History] Oxycodone HCl 5 mg PO UD 12/03/18 [History] Hx Tetanus, Diphtheria Vaccination/Date Given: Yes Hx Influenza Vaccination/Date Given: Yes Hx Pneumococcal Vaccination/Date Given: No Immunizations Up to Date: Yes - Review of Systems Constitutional: No Symptoms Eyes: No Symptoms Ears, Nose, & Throat: No Symptoms Respiratory: No Symptoms Cardiac: No Symptoms Abdominal/Gastrointestinal: Abdominal Pain (epigastric), Nausea Genitourinary Symptoms: No Symptoms Musculoskeletal: No Symptoms Skin: No Symptoms Neurological: No Symptoms Psychological: No Symptoms Endocrine: No Symptoms Hematologic/Lymphatic: No Symptoms Immunological/Allergic: No Symptoms All Other Systems: Reviewed and Negative - Past Medical History Pertinent Past Medical History: Yes Neurological History: Migraines, Other ENT History: No Pertinent History Cardiac History: Angina, Hypertension, Other Respiratory History: Asthma Endocrine Medical History: Diabetes Type II Musculoskeletal History: Degenerative Disk Disease GI Medical History: Colitis, Diverticulosis, GERD, Gallbladder Disease History: Other Psycho-Social History: Depression, Anxiety Female Reproductive Disorders: Menstrual Problems Other Medical History: TYPE II DM," palpatations" MVP, VERTIGO. " black out spells" - Past Surgical History Past Surgical History: Yes Neuro Surgical History: No Pertinent History Cardiac: Cardiac Catheterization Respiratory: No Pertinent History Gastrointestinal: Other, Cholecystectomy Genitourinary: No Pertinent History, Other Musculoskeletal: No Pertinent History Female Surgical History: Section, Hysterectomy, Tubal Ligation, Other Other Surgical History: Gastric Bypass 2009; Kidney balloon as child; Uteral ablation. perforated ulcer - Social History Smoking Status: Former smoker How long have you smoked: 15 years Exposure to second hand smoke: No Alcohol Use: None Drug Use: none Patient Lives Alone: No - Female History Hx Last Menstrual Period: hysterectomy Hx Now: No - Nursing Vital Signs Nursing Vital Signs: Initial Vital Signs Temperature 97.8 F 04/23/19 18:56 Pulse Rate 78 12/22/18 18:56 Respiratory Rate 20 12/22/18 18:56 Blood Pressure 170/98 12/22/18 18:56 O2 Sat by Pulse Oximetry 100 12/22/18 18:56 Pain Scale Pain Intensity 8 - Physical Exam General Appearance: no apparent distress, alert, anxiety Eye Exam: PERRL/EOMI, eyes nml inspection Ears, Nose, Throat Exam: normal ENT inspection, moist mucous membranes Neck Exam: normal inspection, non-tender, supple, full range of motion Respiratory Exam: normal breath sounds, lungs clear, airway intact, No chest tenderness, No respiratory distress Cardiovascular Exam: regular rate/rhythm, normal heart sounds, normal peripheral pulses Gastrointestinal/Abdomen Exam: soft, normal bowel sounds, tenderness (mild epigastric area), No guarding, No rebound Pelvic Exam: not done Rectal Exam: not done Back Exam: normal inspection, normal range of motion, No CVA tenderness, No vertebral tenderness Extremity Exam: normal inspection, normal range of motion, pelvis stable Neurologic Exam: alert, oriented x 3, 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, 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 Skin Exam: normal color, warm, dry Lymphatic Exam: No adenopathy SpO2 Interpretation: normal SpO2: 100 O2 Delivery: Room Air - Course Nursing assessment & vital signs reviewed: Yes Ordered Tests: Active Orders 24 hr Category Date Time Status IV Insertion STAT Care 12/22/18 19:21 Active ABDOMEN AND PELVIS W/0 CONTRAS [CT] Stat Exams 12/22/18 19:22 Taken AMYLASE Stat Lab 12/22/18 20:40 Completed CBC W DIFF Stat Lab 12/22/18 20:40 Completed CMP Stat Lab 12/22/18 20:40 Completed LIPASE Stat Lab 12/22/18 20:40 Completed Lactic Acid Stat Lab 12/22/18 20:40 Completed UA W/RFX UR CULTURE Stat Lab 12/22/18 20:30 Completed Medication Summary Discontinued Medications Generic Name Dose Route Start Last Admin Trade Name Freq PRN Reason Stop Dose Admin Famotidine 20 mg 12/22/18 19:21 12/22/18 20:51 Pepcid 20 Mg Vial IV 12/22/18 19:22 20 mg STAT ONE Administration Famotidine Confirm 12/22/18 20:46 Pepcid 20 Mg Vial Administered 12/22/18 20:47 Dose 20 mg IV .STK-MED ONE Sodium Chloride 1,000 mls @ 999 mls/hr 12/22/18 19:21 12/22/18 20:50 Sodium Chloride 0.9% 1000 Ml IV 12/22/18 20:21 999 mls/hr .Q1H1M STA Administration Sodium Chloride Confirm 12/22/18 20:47 Sodium Chloride 0.9% 1000 Ml Administered 12/22/18 20:48 Dose 1,000 mls @ ud .ROUTE .STK-MED ONE Ondansetron HCl 4 mg 12/22/18 19:21 12/22/18 20:51 Zofran 4 Mg/2 Ml Vial IV 12/22/18 19:22 4 mg STAT ONE Administration Ondansetron HCl Confirm 12/22/18 20:46 Zofran 4 Mg/2 Ml Vial Administered 12/22/18 20:47 Dose 4 mg .ROUTE .STK-MED ONE Lab/Rad Data: Laboratory Result Diagrams 12/22/18 20:40 12/22/18 20:40 Laboratory Results 12/22/18 12/22/18 12/22/18 Range/Units 20:40 20:40 20:40 WBC 7.3 (4.0-10.5) K/mm3 RBC 3.98 L (4.1-5.4) M/mm3 Hgb 11.4 L (12.0-16.0) gm/dl Hct 36.1 (35-47) % MCV 90.7 (78-100) fl MCH 28.6 (26-32) pg MCHC 31.6 L (32-36) g/dl RDW 14.5 H (11.5-14.0) % Plt Count 238 (150-450) K/mm3 MPV 10.5 H (6-9.5) fl Gran % 65.2 (36.0-66.0) % Eos # (Auto) 0.17 (0-0.5) Absolute Lymphs (auto) 1.73 (1.0-4.6) Absolute Monos (auto) 0.60 (0.0-1.3) Lymphocytes % 23.8 L (24.0-44.0) % Monocytes % 8.3 (0.0-12.0) % Eosinophils % 2.3 (0.00-5.0) % Basophils % 0.4 (0.0-0.4) % Absolute Granulocytes 4.74 (1.4-6.9) Basophils # 0.03 (0-0.4) Sodium 141 (137-145) mmol/L Potassium 4.0 (3.5-5.1) mmol/L Chloride 104 (98-107) mmol/L Carbon Dioxide 27 (22-30) mmol/L Anion Gap 13.7 (5-15) MEQ/L BUN 10 (7-17) mg/dL Creatinine 0.80 (0.52-1.04) mg/dL Estimated GFR > 60.0 ML/MIN Glucose 76 (74-106) mg/dL Lactic Acid 0.8 (0.4-2.0) Calcium 8.8 (8.4-10.2) mg/dL Total Bilirubin 0.40 (0.2-1.3) mg/dL AST 35 (14-36) U/L ALT 16 (0-35) U/L Alkaline Phosphatase 85 (38-126) U/L Serum Total Protein 6.9 (6.3-8.2) g/dL Albumin 3.4 L (3.5-5.0) g/dL Amylase 75 (30-110) U/L Lipase 138 (23-300) U/L Urine Color (YELLOW) Urine Appearance (CLEAR) Urine pH (5-6) Ur Specific [place] (1.005-1.025) Urine Protein (Negative) Urine Ketones (NEGATIVE) Urine Blood (0-5) Sajan/ul Urine Nitrite (NEGATIVE) Urine Bilirubin (NEGATIVE) Urine Urobilinogen (0-1) mg/dL Ur Leukocyte Esterase (NEGATIVE) Urine WBC (Auto) (0-5) /HPF Urine RBC (Auto) (0-2) /HPF U Epithel Cells (Auto) (FEW) /HPF Urine Bacteria (Auto) (NEGATIVE) /HPF Urine Culture Reflexed (NO) Urine Glucose (NEGATIVE) mg/dL 12/22/18 Range/Units 20:30 WBC (4.0-10.5) K/mm3 RBC (4.1-5.4) M/mm3 Hgb (12.0-16.0) gm/dl Hct (35-47) % MCV (78-100) fl MCH (26-32) pg MCHC (32-36) g/dl RDW (11.5-14.0) % Plt Count (150-450) K/mm3 MPV (6-9.5) fl Gran % (36.0-66.0) % Eos # (Auto) (0-0.5) Absolute Lymphs (auto) (1.0-4.6) Absolute Monos (auto) (0.0-1.3) Lymphocytes % (24.0-44.0) % Monocytes % (0.0-12.0) % Eosinophils % (0.00-5.0) % Basophils % (0.0-0.4) % Absolute Granulocytes (1.4-6.9) Basophils # (0-0.4) Sodium (137-145) mmol/L Potassium (3.5-5.1) mmol/L Chloride (98-107) mmol/L Carbon Dioxide (22-30) mmol/L Anion Gap (5-15) MEQ/L BUN (7-17) mg/dL Creatinine (0.52-1.04) mg/dL Estimated GFR ML/MIN Glucose (74-106) mg/dL Lactic Acid (0.4-2.0) Calcium (8.4-10.2) mg/dL Total Bilirubin (0.2-1.3) mg/dL AST (14-36) U/L ALT (0-35) U/L Alkaline Phosphatase (38-126) U/L Serum Total Protein (6.3-8.2) g/dL Albumin (3.5-5.0) g/dL Amylase (30-110) U/L Lipase (23-300) U/L Urine Color STRAW (YELLOW) Urine Appearance CLEAR (CLEAR) Urine pH 5.0 (5-6) Ur Specific [place] 1.006 (1.005-1.025) Urine Protein NEGATIVE (Negative) Urine Ketones NEGATIVE (NEGATIVE) Urine Blood NEGATIVE (0-5) Sajan/ul Urine Nitrite NEGATIVE (NEGATIVE) Urine Bilirubin NEGATIVE (NEGATIVE) Urine Urobilinogen NEGATIVE (0-1) mg/dL Ur Leukocyte Esterase NEGATIVE (NEGATIVE) Urine WBC (Auto) 0-2 (0-5) /HPF Urine RBC (Auto) NONE SEEN (0-2) /HPF U Epithel Cells (Auto) RARE (FEW) /HPF Urine Bacteria (Auto) NONE (NEGATIVE) /HPF Urine Culture Reflexed NO (NO) Urine Glucose >=500 (NEGATIVE) mg/dL - Departure Departure Disposition: Home Clinical Impression: Abdominal pain Condition: Stable Critical Care Time: No Referrals: SINCERE LEHMAN [Primary Care Provider] - Additional Instructions: follow up with your surgeon tomorrow. diet as tolerated.
[2018-12-22] MEDS ORDERED: Zofran 4 MG/2 ML VIAL ONE (20:46)
[2018-12-22] MEDS ORDERED: Sodium Chloride 0.9% 1000 ML 1,000 ML ONE (20:47)
[2018-12-22 20:50] LABS: BASOPHIL % 0.4 % (0.0-0.4); Basophil (Absolute #) 0.03 (0-0.4); Eosinophil % 2.3 % (0.00-5.0); Eosinophil (Absolute #) 0.17 (0-0.5); Granulocyte Absolute (ANC) 4.74 (1.4-6.9); Granulocytes % 65.2 % (36.0-66.0); Hematocrit 36.1 % (35-47); Hemoglobin 11.4 gm/dl (12.0-16.0); Lymphocyte (Absolute #) 1.73 (1.0-4.6); Lymphocytes % 23.8 % (24.0-44.0); Mean Cell Volume 90.7 fl (78-100); Mean Corpuscular Hemoglobin 28.6 pg (26-32); Mean Corpuscular Hgb Concent. 31.6 g/dl (32-36); Mean Platelet Volume 10.5 fl (6-9.5); Monocytes % 8.3 % (0.0-12.0); Platelet Count 238 K/mm3 (150-450); Red Blood Count 3.98 M/mm3 (4.1-5.4); Red Cell Distribution Width 14.5 % (11.5-14.0); White Blood Count 7.3 K/mm3 (4.0-10.5)
[2018-12-22 20:56] LABS: Appearance CLEAR (CLEAR); Bilirubin NEGATIVE (NEGATIVE); Blood NEGATIVE Ery/ul (0-5); Epithelial Cells RARE /HPF (FEW); Glucose >=500 mg/dL (NEGATIVE); Ketones NEGATIVE (NEGATIVE); Leukocyte Esterase NEGATIVE (NEGATIVE); Nitrite NEGATIVE (NEGATIVE); Protein,Urine Dip NEGATIVE (Negative); RBC NONE SEEN /HPF (0-2); Specific Gravity 1.006 (1.005-1.025); Urobilinogen NEGATIVE mg/dL (0-1); WBC 0-2 /HPF (0-5)
[2018-12-22 21:04] LABS: ALBUMIN 3.4 g/dL (3.5-5.0); ALKALINE PHOSPHATASE 85 U/L (38-126); AMYLASE 75 U/L (30-110); ANION GAP 13.7 MEQ/L (5-15); BLOOD UREA NITROGEN 10 mg/dL (7-17); CHLORIDE 104 mmol/L (98-107); Calcium 8.8 mg/dL (8.4-10.2); Carbon Dioxide 27 mmol/L (22-30); Glucose 76 mg/dL (74-106); LIPASE 138 U/L (23-300); SGPT/ALT 16 U/L (0-35); SODIUM 141 mmol/L (137-145); Total Protein 6.9 g/dL (6.3-8.2)
[2018-12-22 21:20] LABS: SGOT/AST 35 U/L (14-36)
[2018-12-22 21:35] VITALS: O2SAT 100
[2018-12-22 22:01] VITALS: BP 147/98; PULSE 76
--- NOTE | 2018-12-23 08:46 | XRAY ---
Indication: Upper abdominal pain and nausea. Multiple contiguous axial images obtained through the abdomen and pelvis without contrast as ordered. Comparison: December 03, 2018. Lung bases grossly clear. Heart is not enlarged. Again previous gastric bypass surgery, cholecystectomy, and hysterectomy. Noncontrasted stomach and bowel loops appear nonobstructed. Normal air-filled appendix. Mild diffuse scattered colonic fecal debris throughout including rectum. Previous gallbladder fossa abscess continues to diminish in size again with thickened wall. No new free fluid/air. Stable pancreatic head microcalcification, fatty liver, and nonobstructing left renal calculus. Remaining liver, pancreas, spleen, adrenal glands, kidneys, ureters, bladder, and aorta appear unremarkable for noncontrast exam. Osseous structures intact again with degenerative changes throughout the spine and bilateral hip degenerative arthropathy. Impression: 1. Previous gallbladder fossa continues to appear smaller as detailed. 2. Stable fatty liver, pancreatic microcalcification, and nonobstructing left renal calculus. 3. Mild diffuse fecal stasis. 4. No new intra-abdominal/pelvic abnormalities on this noncontrast exam. CT DI 23.17
== END 2018-12-22 22:00 | disposition home or self-care (01) ==
LOC: ED 18:34
DX: R10.9 Unspecified abdominal pain (principal); I10 Essential (primary) hypertension; E11.9 Type 2 diabetes mellitus without complications; K21.9 Gastro-esophageal reflux disease without esophagitis; Z79.899 Other long term (current) drug therapy
CPT/HCPCS: 36415; 74176; 80053; 81001; 82150; 83605; 83690; 85025; 96360; 96374; 96375; 99284; J2405

== ENCOUNTER 2022-03-16 13:17 | Emergency (ER) | payer OTHER ==
[2022-03-16 13:46] LABS: Absolute Neutrophil Ct (ANC) 2.75 x10^3/uL (1.4-6.9); Basophil (Absolute #) 0.06 x10^3/uL (0-0.4); Eosinophil (Absolute #) 2.36 x10^3/uL (0-0.5); Hematocrit 43.8 % (35-47); Hemoglobin 13.6 g/dL (12.0-16.0); Lymphocyte (Absolute #) 1.53 x10^3/uL (1.0-4.6); Lymphocytes % 21.4 % (24.0-44.0); Mean Cell Volume 87.3 fL (78-100); Mean Corpuscular Hemoglobin 27.1 pg (26-32); Mean Corpuscular Hgb Concent. 31.1 g/dL (32-36); Mean Platelet Volume 12.1 fL (7.5-11.0); Monocyte (Absolute #) 0.44 x10^3/uL (0.0-1.3); Monocytes % 6.2 % (0.0-12.0); Neutrophil % 38.5 % (36.0-66.0); Platelet Count 196 x10^3/uL (150-450); Red Blood Count 5.02 x10^6/uL (4.1-5.4); Red Cell Distribution Width 15.9 % (11.5-14.0); White Blood Count 7.2 x10^3/uL (4.0-10.5)
[2022-03-16 14:19] LABS: ALBUMIN 4.1 g/dL (3.5-5.0); ALKALINE PHOSPHATASE 87 U/L (38-126); ANION GAP 11.2 MEQ/L (5-15); BLOOD UREA NITROGEN 13 mg/dL (7-17); CHLORIDE 108 mmol/L (98-107); Calcium 8.8 mg/dL (8.4-10.2); Carbon Dioxide 26 mmol/L (22-30); Creatinine 1 1.02 mg/dL (0.52-1.04); EST GLOMERULAR FILTRATION RATE > 60.0 ML/MIN; Glucose 85 mg/dL (74-106); NT PRO BNP 199 pg/mL (0-450); Potassium 4.1 mmol/L (3.5-5.1); SGOT/AST 32 U/L (14-36); SGPT/ALT 16 U/L (0-35); SODIUM 142 mmol/L (137-145); Total Protein 7.3 g/dL (6.3-8.2)
[2022-03-16] MEDS ORDERED: DUONEB 0.5-3 MG/3 ml Neb IH ONE ×2 (14:19→14:30)
--- NOTE | 2022-03-16 14:19 | ERPHSYRPT ---
- History of Present Illness Source: patient Exam Limitations: no limitations Patient Subjective Stated Complaint: pt here for increase sob for about a week now, she has hx of copd and states her treatments are not helping, no fever, Triage Nursing Assessment: pt alert, walked in, resp easy, skin w/d/p. has congested sounding cough, face mask in place, no edema noted Physician History: 46 yo wf w h/o COPD/DM/MVP/HTN/TAA presents w cough/coryza/dyspnea/COPD x 1 wk. Pt states that she has some chest tightness which is worse w deep breaths. Fe alessandra/N/V/D/melena/hematochezia all denied. Timing/Duration: other (1wk) Activities at Onset: rest Severity of Dyspnea-Max: moderate Severity of Dyspnea-Current: mild Possible Cause: occasional episodes Modifying Factors: Improves With: coughing, deep breath, exertion Associated Symptoms: cough, chest pain/discomfort, wheezing, heaviness, painful breathing, productive cough, No edema, No fever, No insomnia, No loss of appet ite, No lightheadedness, No weakness, No ankle swelling, No chills, No hemoptysis, No calf pain, No dizziness, No heart racing, No lightheadedness, No leg swelling, No muscle spasms feet, No muscle spasms hands, No sweating Allergies/Adverse Reactions: flurbiprofen [From Ansaid] Allergy (Severe, Verified 03/16/22 13:29) Swelling she can take other nsaids morphine Adverse Reaction (Intermediate, Verified 03/16/22 13:29) Itching "I've never been told im allergic to to it but it makes me itch and i don't like how it makes me feel" Home Medications: Albuterol Common Canister [Ventolin Common Canister] 2 puff IH Q4H PRN 11/06/16 [History] Lisinopril 20 mg [Zestril 20 MG] 40 mg PO DAILY 03/16/22 [History] Hx Tetanus, Diphtheria Vaccination/Date Given: Yes Hx Influenza Vaccination/Date Given: Yes Hx Pneumococcal Vaccination/Date Given: No Immunizations Up to Date: No Travel Risk - International Travel Have you traveled outside of the country in past 3 weeks: No - Coronavirus Screening Are you exhibiting any of the following symptoms?: Yes Symptoms: Cough: New Onset, Shortness of Breath Close contact with a COVID-19 positive Pt in past 14-21 Days: No - Vaccine Status Have you recieved a Covid-19 vaccination: No - Review of Systems Constitutional: No Symptoms, Fatigue Eyes: No Symptoms Ears, Nose, & Throat: Nose Congestion, Nose Discharge, Sinus Drainage Respiratory: Cough, Dyspnea Cardiac: No Symptoms, Chest Pain Abdominal/Gastrointestinal: No Symptoms Genitourinary Symptoms: No Symptoms Musculoskeletal: No Symptoms Skin: No Symptoms Neurological: No Symptoms Psychological: No Symptoms Endocrine: No Symptoms Hematologic/Lymphatic: No Symptoms Immunological/Allergic: No Symptoms - Past Medical History Pertinent Past Medical History: Yes Neurological History: Migraines, Other ENT History: No Pertinent History Cardiac History: Angina, Hypertension, Other Respiratory History: Asthma, COPD Endocrine Medical History: Diabetes Type II Musculoskeletal History: Degenerative Disk Disease GI Medical History: Colitis, Diverticulosis, GERD, Gallbladder Disease History: Other Psycho-Social History: Depression, Anxiety Female Reproductive Disorders: Menstrual Problems Other Medical History: TYPE II DM," palpatations" MVP, VERTIGO. " black out spells" - Past Surgical History Past Surgical History: Yes Neuro Surgical History: No Pertinent History Cardiac: Cardiac Catheterization Respiratory: No Pertinent History Gastrointestinal: Other, Cholecystectomy Genitourinary: No Pertinent History, Other Musculoskeletal: No Pertinent History Female Surgical History: Section, Hysterectomy, Tubal Ligation, Other Other Surgical History: Gastric Bypass 2009; Kidney balloon as child; Uteral ablation. perforated ulcer - Social History Smoking Status: Former smoker How long have you smoked: 15 years Exposure to second hand smoke: No Alcohol Use: None Drug Use: none Patient Lives Alone: No Significant Family History: no pertinent family hx - Female History Hx Last Menstrual Period: hypster Hx Now: No - Nursing Vital Signs Nursing Vital Signs: Initial Vital Signs Temperature 97.5 F 03/16/22 13:21 Pulse Rate 75 03/16/22 13:21 Respiratory Rate 20 03/16/22 13:21 Blood Pressure 232/120 03/16/22 13:21 O2 Sat by Pulse Oximetry 95 03/16/22 13:21 Pain Scale Pain Intensity 4 Hypertensive - Physical Exam General Appearance: no apparent distress, anxiety Eye Exam: PERRL/EOMI, eyes nml inspection Ears, Nose, Throat Exam: hearing grossly normal, normal ENT inspection, normal pharynx, No abnormal TM (R), No abnormal TM (L) Neck Exam: normal inspection, non-tender, supple, full range of motion, No Brudzinski, No Kernig's, No meningismus, No carotid bruit Respiratory Exam: airway intact, prolonged expirations, wheezing Cardiovascular/Chest Exam: normal heart sounds, regular rate/rhythm, normal peripheral pulses, No murmur, No edema Abdominal/Gastrointestinal Exam: soft, normal bowel sounds, No tenderness Extremity Exam: non-tender, normal range of motion, normal inspection, normal capillary refill, no calf tenderness, no pedal edema Peripheral Pulses Exam: carotid (R): 2+, carotid (L): 2+ Neurologic Exam: alert, oriented x 3, cooperative, 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 as tested, normal mood/affect, nml cerebellar function, nml station & gait, sensation nml Skin Exam: normal color, warm, dry, No rash Lymphatic Exam: No adenopathy SpO2 Interpretation: normal SpO2: 96 O2 Delivery: Room Air - Course Nursing assessment & vital signs reviewed: Yes EKG Interpreted by Me: RATE (NSR/Rate70/Mildly prolonged QTc/Flat Twaves/No acute ST changes) - Radiology Exams Chest X-ray Interpretation: Interpreted by me (CXR neg per ER read) - CT Exams Chest CT Interpretation: Tele-radiologist Report (CTA of chest /No PE/4.4cm ascebding TAA/No dissection) Ordered Tests: Active Orders 24 hr Category Date Time Status EKG-ER Only STAT Care 03/16/22 13:29 Completed IV Insertion STAT Care 03/16/22 13:40 Completed CHEST 1 VIEW (PORTABLE) Stat Exams 03/16/22 13:29 Completed CHEST WITH CONTRAST [CT] Stat Exams 03/16/22 15:02 Completed CBC W DIFF Stat Lab 03/16/22 13:49 Completed CMP Stat Lab 03/16/22 13:49 Completed D-DIMER QUANTITATIVE Stat Lab 03/16/22 14:41 Completed NT PRO BNP Stat Lab 03/16/22 13:49 Completed TROPONIN Q3H Lab 03/16/22 13:49 Completed TROPONIN Q3H Lab 03/16/22 16:48 Completed Respiratory Therapy Assessment DAILY RT 03/16/22 14:42 Completed Respiratory Therapy Assessment DAILY RT 03/16/22 17:43 Completed Medication Summary Discontinued Medications Generic Name Dose Route Start Last Admin Trade Name Luis Alberto PRN Reason Stop Dose Admin Acetaminophen 1,000 mg 03/16/22 15:18 03/16/22 15:19 Acetaminophen 500 Mg Tablet PO 03/16/22 15:19 1,000 mg STAT ONE Administration Acetaminophen Confirm 03/16/22 15:19 Acetaminophen 500 Mg Tablet Administered 03/16/22 15:20 Dose 1,000 mg .ROUTE .STK-MED ONE Albuterol Sulfate 2.5 mg 03/16/22 17:04 03/16/22 17:42 Albuterol Solution 2.5 Mg/0.5 Ml Ud Solution IH 03/16/22 17:05 2.5 mg STAT ONE Administration Albuterol Sulfate Confirm 03/16/22 17:19 Albuterol Sulfate 2.5 Mg/3 Ml Neb Administered 03/16/22 17:20 Dose 2.5 mg IH .STK-MED ONE Albuterol/Ipratropium Confirm 03/16/22 14:19 Ipratropium/Albuterol Sulfate 3 Ml Ampul.Neb Administered 03/16/22 14:20 Dose 3 ml IH .STK-MED ONE Albuterol/Ipratropium 3 ml 03/16/22 14:30 03/16/22 14:42 Ipratropium/Albuterol Sulfate 3 Ml Ampul.Neb IH 03/16/22 14:31 3 ml STAT ONE Administration Methylprednisolone Sodium 0 mg 03/16/22 15:13 03/16/22 15:14 Succinate 125 mg/ Sterile IV 03/16/22 15:14 125 mg Water 2 ml STAT ONE Administration Methylprednisolone Sodium Succinate Confirm 03/16/22 15:12 Methylprednis Sod Succ 125 Mg/2 Ml Vial Administered 03/16/22 15:13 Dose 125 mg .ROUTE .STK-MED ONE Sterile Water Confirm 03/16/22 15:12 Water For Injection,Sterile 10 Ml Vial Administered 03/16/22 15:13 Dose 10 ml IJ .STK-MED ONE Lab/Rad Data: Laboratory Result Diagrams 03/16/22 13:49 03/16/22 13:49 Laboratory Results 03/16/22 03/16/22 03/16/22 Range/Units 16:48 14:41 14:10 WBC (4.0-10.5) x10^3/uL RBC (4.1-5.4) x10^6/uL Hgb (12.0-16.0) g/dL Hct (35-47) % MCV (78-100) fL MCH (26-32) pg MCHC (32-36) g/dL RDW (11.5-14.0) % Plt Count (150-450) x10^3/uL MPV (7.5-11.0) fL Gran % (36.0-66.0) % Immature Gran % (Auto) (0.00-0.4) % Nucleat RBC Rel Count (0.00-0.1) % Eos # (Auto) (0-0.5) x10^3/uL Immature Gran # (Auto) (0.00-0.03) x10^3u/L Absolute Lymphs (auto) (1.0-4.6) x10^3/uL Absolute Monos (auto) (0.0-1.3) x10^3/uL Absolute Nucleated RBC (0.00-0.01) x10^3u/L Lymphocytes % (24.0-44.0) % Monocytes % (0.0-12.0) % Eosinophils % (0.00-5.0) % Basophils % (0.0-0.4) % Absolute Granulocytes (1.4-6.9) x10^3/uL Basophils # (0-0.4) x10^3/uL D-Dimer 0.55 H (0.0-0.50) mg/L Sodium (137-145) mmol/L Potassium (3.5-5.1) mmol/L Chloride (98-107) mmol/L Carbon Dioxide (22-30) mmol/L Anion Gap (5-15) MEQ/L BUN (7-17) mg/dL Creatinine (0.52-1.04) mg/dL Estimated GFR ML/MIN Glucose (74-106) mg/dL Calcium (8.4-10.2) mg/dL Total Bilirubin (0.2-1.3) mg/dL AST (14-36) U/L ALT (0-35) U/L Alkaline Phosphatase (38-126) U/L Troponin I < 0.012 (0.000-0.034) ng/mL NT-Pro-B Natriuret Pep (0-450) pg/mL Serum Total Protein (6.3-8.2) g/dL Albumin (3.5-5.0) g/dL Influenza Type A Ag NEGATIVE (NEGATIVE) Influenza Type B Ag NEGATIVE (NEGATIVE) RSV (PCR) NEGATIVE (Negative) SARS-CoV-2 (PCR) NEGATIVE (NEGATIVE) 03/16/22 03/16/22 03/16/22 Range/Units 13:49 13:49 13:49 WBC 7.2 (4.0-10.5) x10^3/uL RBC 5.02 (4.1-5.4) x10^6/uL Hgb 13.6 (12.0-16.0) g/dL Hct 43.8 (35-47) % MCV 87.3 (78-100) fL MCH 27.1 (26-32) pg MCHC 31.1 L (32-36) g/dL RDW 15.9 H (11.5-14.0) % Plt Count 196 (150-450) x10^3/uL MPV 12.1 H (7.5-11.0) fL Gran % 38.5 (36.0-66.0) % Immature Gran % (Auto) 0.1 (0.00-0.4) % Nucleat RBC Rel Count 0.0 (0.00-0.1) % Eos # (Auto) 2.36 H (0-0.5) x10^3/uL Immature Gran # (Auto) 0.01 (0.00-0.03) x10^3u/L Absolute Lymphs (auto) 1.53 (1.0-4.6) x10^3/uL Absolute Monos (auto) 0.44 (0.0-1.3) x10^3/uL Absolute Nucleated RBC 0.00 (0.00-0.01) x10^3u/L Lymphocytes % 21.4 L (24.0-44.0) % Monocytes % 6.2 (0.0-12.0) % Eosinophils % 33.0 H (0.00-5.0) % Basophils % 0.8 (0.0-0.4) % Absolute Granulocytes 2.75 (1.4-6.9) x10^3/uL Basophils # 0.06 (0-0.4) x10^3/uL D-Dimer (0.0-0.50) mg/L Sodium 142 (137-145) mmol/L Potassium 4.1 (3.5-5.1) mmol/L Chloride 108 H (98-107) mmol/L Carbon Dioxide 26 (22-30) mmol/L Anion Gap 11.2 (5-15) MEQ/L BUN 13 (7-17) mg/dL Creatinine 1.02 (0.52-1.04) mg/dL Estimated GFR > 60.0 ML/MIN Glucose 85 (74-106) mg/dL Calcium 8.8 (8.4-10.2) mg/dL Total Bilirubin 0.50 (0.2-1.3) mg/dL AST 32 (14-36) U/L ALT 16 (0-35) U/L Alkaline Phosphatase 87 (38-126) U/L Troponin I < 0.012 (0.000-0.034) ng/mL NT-Pro-B Natriuret Pep 199 (0-450) pg/mL Serum Total Protein 7.3 (6.3-8.2) g/dL Albumin 4.1 (3.5-5.0) g/dL Influenza Type A Ag (NEGATIVE) Influenza Type B Ag (NEGATIVE) RSV (PCR) (Negative) SARS-CoV-2 (PCR) (NEGATIVE) - Progress Progress: improved Progress Note: 03/16/22 17:27 125mg IV Solumedrol Duoneb x1 w mild improvement Albuterol neb x1 before discharge Counseled pt/family regarding: lab results, diagnosis, need for follow-up, rad results - Departure Departure Disposition: Home Clinical Impression: Asthmatic bronchitis, Thoracic aortic aneurysm without rupture Condition: Stable Critical Care Time: No Referrals: SINCERE BETHEA [Primary Care Provider] - Follow up/PCP as directed Instructions: Acute Bronchitis, Adult (DC), Shortness of Breath (Dyspnea) (DC), Exacerbation of COPD (DC) Additional Instructions: Doxycycline twice a day for 1 week Flovent 2 puffs twice a day Albuterol inhaler every 4 hours as needed Prednisone twice a day for 5 days If you get short of breath, use your Albuterol and not Flovent Follow up with your family MD on Friday Return to ER for increasing shortness of breath, chest pain, or temperature gr eater than 100.5 Prescriptions: Prednisone 10 mg [Deltasone 10 mg] 10 mg PO BID 5 Days #10 tablet Doxycycline Monohydrate 100 mg PO BID #14 Fluticasone Propionate [Flovent 110 Mcg MDI] 12 g IH BID #1 inh
[2022-03-16 14:39] LABS: INFLUENZA A NEGATIVE (NEGATIVE); INFLUENZA B NEGATIVE (NEGATIVE); RESPIRATORY SYNCTIAL VIRUS NEGATIVE (Negative); SARS-CoV-2 Xpert Express NEGATIVE (NEGATIVE)
[2022-03-16] MEDS ORDERED: solu-MEDROL ONE (15:12)
[2022-03-16] MEDS ORDERED: Sterile H2O 10 ml IJ ONE (15:12)
[2022-03-16] MEDS ORDERED: solu-MEDROL 125 MG, Sterile H2O 10 ml 2 ML IV ONE ×2 (15:13)
[2022-03-16] MEDS ORDERED: TYLENOL EXTRA STRENGTH 500 MG PO ONE (15:18)
[2022-03-16] MEDS ORDERED: TYLENOL EXTRA STRENGTH 500 MG ONE (15:19)
[2022-03-16] MEDS ORDERED: PROVENTIL Solution 2.5 MG/0.5 ML IH ONE (17:04)
[2022-03-16] MEDS ORDERED: PROVENTIL 2.5 MG/3 ML NEB IH ONE (17:19)
[2022-03-16 17:36] VITALS: BP 162/102
[2022-03-16 17:44] VITALS: PULSE 68
--- NOTE | 2022-03-16 19:40 | XRAY ---
Indication: Short of breath. Elevated d-dimer. Multiple contiguous axial images obtained through the chest using 100 cc Isovue 370 contrast and PE protocol. Comparison: November 16, 2018 Good opacification of the pulmonary arteries to include the lobar and segmental branches. No pulmonary embolus. Heart not enlarged. Stable tiny mediastinal/left hilar calcified nodes. No pathologic mediastinal/hilar lymphadenopathy. Lungs demonstrates minimal left base fibrosis/scarring. No suspicious pulmonary mass, infiltrate, effusion, or pneumothorax. Bony thorax intact again with mild degenerative changes throughout the spine. Limited upper abdomen again demonstrates bariatric surgery, mild fatty liver, cholecystectomy clips, and 9 mm nonobstructing left renal calculus. Impression: 1. Negative pulmonary embolus. No new/acute cardiopulmonary abnormalities. 2. Chronic findings including degenerative spondylosis, bariatric surgery, fatty liver, nonobstructing left renal calculus, and old granulomatous disease. Comment: Preliminary interpretation may by [facility]. No critical discrepancy.
--- NOTE | 2022-03-16 19:42 | XRAY ---
Indication: Short of breath. Comparison: December 03, 2018. Portable chest remains inflated and clear. Heart not enlarged. Bony thorax intact. No new/acute findings.
[2022-03-16 20:42] VITALS: O2SAT 96
== END 2022-03-16 17:42 | disposition home or self-care (01) ==
LOC: ED 13:17
DX: J45.909 Unspecified asthma, uncomplicated (principal); I71.2 Thoracic aortic aneurysm, without rupture; J44.9 Chronic obstructive pulmonary disease, unspecified; E11.9 Type 2 diabetes mellitus without complications; I10 Essential (primary) hypertension; R06.00 Dyspnea, unspecified; R05.9 Cough, unspecified; R07.9 Chest pain, unspecified; Z79.899 Other long term (current) drug therapy; Z79.52 Long term (current) use of systemic steroids; Z28.310 Unvaccinated for COVID-19
CPT/HCPCS: 0241U; 36000; 36415; 71045; 71260; 80053; 83880; 84484; 85025; 85379; 93005; 94640; 96374; 99284; J2930; J7609; A9270-GY

== ENCOUNTER 2022-03-24 14:14 | Observation (INO) | payer MEDICAID, OTHER ==
[2022-03-24] MEDS ORDERED: solu-MEDROL 125 MG, Sterile H2O 10 ml 2 ML IV ONE ×2 (14:18)
[2022-03-24] MEDS ORDERED: DUONEB 0.5-3 MG/3 ml Neb IH ONE ×2 (14:18→14:19)
[2022-03-24] MEDS ORDERED: Sodium Chloride 0.9% 1000 ML 1,000 ML IV STA (14:18)
[2022-03-24 14:50] LABS: Absolute Neutrophil Ct (ANC) 4.27 x10^3/uL (1.4-6.9); Basophil (Absolute #) 0.13 x10^3/uL (0-0.4); Eosinophil % 32.3 % (0.00-5.0); Eosinophil (Absolute #) 3.11 x10^3/uL (0-0.5); Hemoglobin 13.5 g/dL (12.0-16.0); Lymphocyte (Absolute #) 1.58 x10^3/uL (1.0-4.6); Lymphocytes % 16.4 % (24.0-44.0); Mean Cell Volume 86.9 fL (78-100); Mean Corpuscular Hemoglobin 27.3 pg (26-32); Mean Corpuscular Hgb Concent. 31.4 g/dL (32-36); Mean Platelet Volume 11.4 fL (7.5-11.0); Monocytes % 5.2 % (0.0-12.0); Neutrophil % 44.4 % (36.0-66.0); Platelet Count 203 x10^3/uL (150-450); Red Blood Count 4.95 x10^6/uL (4.1-5.4); Red Cell Distribution Width 15.8 % (11.5-14.0); White Blood Count 9.6 x10^3/uL (4.0-10.5)
[2022-03-24] MEDS ORDERED: Sodium Chloride 0.9% 1000 ML 1,000 ML ONE (14:50)
[2022-03-24] MEDS ORDERED: solu-MEDROL ONE ×2 (14:50→22:35)
[2022-03-24] MEDS ORDERED: Sterile H2O 10 ml IJ ONE ×2 (14:50→22:35)
--- NOTE | 2022-03-24 15:02 | ERPHSYRPT ---
- History of Present Illness Time Seen by Provider: 03/24/22 14:25 Patient Subjective Stated Complaint: PT TO ER WITH COMPLAINTS OF CHEST PAIN AND SOB. PT STATES SHE WAS HERE LAST FRIDAY FOR SAME THING AND WAS GIVEN MEDS AND NEBULIZER FOR IT. PT STATES ITS NOT WORKING. FEELS LIKE ELEPHANT ON CHEST. Triage Nursing Assessment: PT TO ER WITH CHEST PAIN AND SOB X 1 WEEK. PT AMBULATORY. SKIN PWD. APPEARS SOB. AUDIBLE WHEEZING. Physician History: Patient is a 46-year-old white female who is been sick for approximately 2 weeks she has been short of breath and having some chest tightness and pain she has been here a week ago for the same and was treated with antibiotics steroids and nebulizer. She has a history of COPD and she is a former smoker. Timing/Duration: week(s) (2) Severity of Dyspnea-Max: moderate Severity of Dyspnea-Current: moderate Possible Cause: occasional episodes Modifying Factors: Improves With: albuterol inhaler, albuterol nebulizer Associated Symptoms: cough, chest pain/discomfort, wheezing Allergies/Adverse Reactions: flurbiprofen [From Ansaid] Allergy (Severe, Verified 03/24/22 14:22) Swelling she can take other nsaids morphine Adverse Reaction (Intermediate, Verified 03/24/22 14:22) Itching "I've never been told im allergic to to it but it makes me itch and i don't like how it makes me feel" Home Medications: Albuterol Common Canister [Ventolin Common Canister] 2 puff IH Q4H PRN 11/06/16 [History] Lisinopril 20 mg [Zestril 20 MG] 40 mg PO DAILY 03/16/22 [History] Hx Tetanus, Diphtheria Vaccination/Date Given: Yes Hx Influenza Vaccination/Date Given: Yes Hx Pneumococcal Vaccination/Date Given: No Travel Risk - International Travel Have you traveled outside of the country in past 3 weeks: No - Coronavirus Screening Are you exhibiting any of the following symptoms?: Yes Symptoms: Cough: New Onset, Shortness of Breath - Vaccine Status Have you recieved a Covid-19 vaccination: No - Review of Systems Constitutional: No Fever, No Chills Eyes: No Symptoms Ears, Nose, & Throat: No Symptoms Respiratory: Cough, Dyspnea Cardiac: No Chest Pain, No Edema, No Syncope Abdominal/Gastrointestinal: No Abdominal Pain, No Nausea, No Vomiting, No Diarrhea Genitourinary Symptoms: No Dysuria Musculoskeletal: No Back Pain, No Neck Pain Skin: No Rash Neurological: No Dizziness, No Focal Weakness, No Sensory Changes Psychological: No Symptoms Endocrine: No Symptoms All Other Systems: Reviewed and Negative - Past Medical History Pertinent Past Medical History: Yes Neurological History: Migraines, Other ENT History: No Pertinent History Cardiac History: Angina, Hypertension, Other Respiratory History: Asthma, COPD Endocrine Medical History: Diabetes Type II Musculoskeletal History: Degenerative Disk Disease GI Medical History: Colitis, Diverticulosis, GERD, Gallbladder Disease History: Other Psycho-Social History: Depression, Anxiety Female Reproductive Disorders: Menstrual Problems Other Medical History: TYPE II DM," palpatations" MVP, VERTIGO. " black out spells" - Past Surgical History Past Surgical History: Yes Neuro Surgical History: No Pertinent History Cardiac: Cardiac Catheterization Respiratory: No Pertinent History Gastrointestinal: Other, Cholecystectomy Genitourinary: No Pertinent History, Other Musculoskeletal: No Pertinent History Female Surgical History: Section, Hysterectomy, Tubal Ligation, Other Other Surgical History: Gastric Bypass 2009; Kidney balloon as child; Uteral ablation. perforated ulcer - Social History Smoking Status: Former smoker How long have you smoked: 15 years Exposure to second hand smoke: No Alcohol Use: None Drug Use: none Patient Lives Alone: No Significant Family History: no pertinent family hx - Female History Hx Now: No - Nursing Vital Signs Nursing Vital Signs: Initial Vital Signs Temperature 98.0 F 03/24/22 14:15 Pulse Rate 87 03/24/22 14:15 Respiratory Rate 24 03/24/22 14:15 Blood Pressure 213/132 03/24/22 14:15 O2 Sat by Pulse Oximetry 100 03/24/22 14:15 Pain Scale Pain Intensity 10 - Physical Exam General Appearance: mild distress Eye Exam: PERRL/EOMI Neck Exam: normal inspection, supple Respiratory Exam: respiratory distress (Mild), crackles/rales, rhonchi, wheezing Cardiovascular/Chest Exam: normal heart sounds, regular rate/rhythm Abdominal/Gastrointestinal Exam: soft, No tenderness, No distention, No mass Extremity Exam: non-tender, normal range of motion, normal inspection, no calf tenderness, no pedal edema Neurologic Exam: alert, oriented x 3, cooperative, drawer in hand II-XII nml as tested, sensation nml, No motor deficits Skin Exam: normal color, warm, No dry SpO2 Interpretation: normal SpO2: 100 O2 Delivery: Room Air - Course Nursing assessment & vital signs reviewed: Yes EKG Interpreted by Me: RATE (75), Sinus Rhythm, Left [place] Deviation, Other (Prolonged QT interval and nonspecific ST-T wave changes.) - Radiology Exams Chest X-ray Interpretation: Interpreted by me, Negative Ordered Tests: Active Orders 24 hr Category Date Time Status EKG-ER Only STAT Care 03/24/22 14:18 Active CHEST 1 VIEW (PORTABLE) Stat Exams 03/24/22 14:39 Taken CBC W DIFF Stat Lab 03/24/22 14:18 Completed CMP Stat Lab 03/24/22 14:54 Completed D-DIMER QUANTITATIVE Stat Lab 03/24/22 14:54 Completed Lactic Acid Stat Lab 03/24/22 14:54 Completed MAGNESIUM Stat Lab 03/24/22 14:54 Completed NT PRO BNP Stat Lab 03/24/22 14:54 Completed TROPONIN Q3H Lab 03/24/22 14:54 Completed TROPONIN Q3H Lab 03/24/22 17:30 Ordered TROPONIN Q3H Lab 03/24/22 20:30 Ordered TROPONIN Q3H Lab 03/24/22 23:30 Ordered TROPONIN Q3H Lab 03/25/22 02:30 Ordered UA W/RFX CULTURE Stat Lab 03/24/22 Ordered Respiratory Therapy Assessment DAILY RT 03/24/22 14:25 Active Medication Summary Discontinued Medications Generic Name Dose Route Start Last Admin Trade Name Freq PRN Reason Stop Dose Admin Albuterol/Ipratropium 3 ml 03/24/22 14:18 03/24/22 14:24 Ipratropium/Albuterol Sulfate 3 Ml Ampul.Neb IH 03/24/22 14:19 3 ml STAT ONE Administration Albuterol/Ipratropium Confirm 03/24/22 14:19 Ipratropium/Albuterol Sulfate 3 Ml Ampul.Neb Administered 03/24/22 14:20 Dose 3 ml IH .STK-MED ONE Methylprednisolone Sodium 0 mg 03/24/22 14:18 03/24/22 14:56 Succinate 125 mg/ Sterile IV 03/24/22 14:19 125 mg Water 2 ml STAT ONE Administration Sodium Chloride 1,000 mls @ 999 mls/hr 03/24/22 14:18 03/24/22 16:22 Sodium Chloride 0.9% 1000 Ml IV 03/24/22 15:18 Infused .Q1H1M STA Infusion Sodium Chloride Confirm 03/24/22 14:50 Sodium Chloride 0.9% 1000 Ml Administered 03/24/22 14:51 Dose 1,000 mls @ ud .ROUTE .STK-MED ONE Ceftriaxone Sodium/Dextrose 1 g in 50 mls @ 100 mls/hr 03/24/22 16:14 03/24/22 16:28 Rocephin 1 Gm-D5w 50 Ml Bag IV 03/24/22 16:43 100 ml/hr STAT STA 100 mls/hr Administration Ceftriaxone Sodium/Dextrose Confirm 03/24/22 16:27 Rocephin 1 Gm-D5w 50 Ml Bag Administered 03/24/22 16:28 Dose 1 g in 50 mls @ ud IV .STK-MED ONE Methylprednisolone Sodium Succinate Confirm 03/24/22 14:50 Methylprednis Sod Succ 125 Mg/2 Ml Vial Administered 03/24/22 14:51 Dose 125 mg .ROUTE .STK-MED ONE Sterile Water Confirm 03/24/22 14:50 Water For Injection,Sterile 10 Ml Vial Administered 03/24/22 14:51 Dose 10 ml IJ .STK-MED ONE Lab/Rad Data: Laboratory Result Diagrams 03/24/22 14:18 03/24/22 14:54 Laboratory Results 03/24/22 03/24/22 03/24/22 Range/Units 14:54 14:54 14:54 WBC (4.0-10.5) x10^3/uL RBC (4.1-5.4) x10^6/uL Hgb (12.0-16.0) g/dL Hct (35-47) % MCV (78-100) fL MCH (26-32) pg MCHC (32-36) g/dL RDW (11.5-14.0) % Plt Count (150-450) x10^3/uL MPV (7.5-11.0) fL Gran % (36.0-66.0) % Immature Gran % (Auto) (0.00-0.4) % Nucleat RBC Rel Count (0.00-0.1) % Eos # (Auto) (0-0.5) x10^3/uL Immature Gran # (Auto) (0.00-0.03) x10^3u/L Absolute Lymphs (auto) (1.0-4.6) x10^3/uL Absolute Monos (auto) (0.0-1.3) x10^3/uL Absolute Nucleated RBC (0.00-0.01) x10^3u/L Lymphocytes % (24.0-44.0) % Monocytes % (0.0-12.0) % Eosinophils % (0.00-5.0) % Basophils % (0.0-0.4) % Absolute Granulocytes (1.4-6.9) x10^3/uL Basophils # (0-0.4) x10^3/uL D-Dimer 0.30 (0.0-0.50) mg/L Sodium (137-145) mmol/L Potassium (3.5-5.1) mmol/L Chloride (98-107) mmol/L Carbon Dioxide (22-30) mmol/L Anion Gap (5-15) MEQ/L BUN (7-17) mg/dL Creatinine (0.52-1.04) mg/dL Estimated GFR ML/MIN Glucose (74-106) mg/dL Lactic Acid (0.4-2.0) Calcium (8.4-10.2) mg/dL Magnesium (1.6-2.3) mg/dL Total Bilirubin (0.2-1.3) mg/dL AST (14-36) U/L ALT (0-35) U/L Alkaline Phosphatase (38-126) U/L Troponin I < 0.012 (0.000-0.034) ng/mL NT-Pro-B Natriuret Pep (0-450) pg/mL Serum Total Protein (6.3-8.2) g/dL Albumin (3.5-5.0) g/dL Influenza Type A Ag NEGATIVE (NEGATIVE) Influenza Type B Ag NEGATIVE (NEGATIVE) RSV (PCR) NEGATIVE (Negative) SARS-CoV-2 (PCR) NEGATIVE (NEGATIVE) 03/24/22 03/24/22 03/24/22 Range/Units 14:54 14:54 14:18 WBC 9.6 (4.0-10.5) x10^3/uL RBC 4.95 (4.1-5.4) x10^6/uL Hgb 13.5 (12.0-16.0) g/dL Hct 43.0 (35-47) % MCV 86.9 (78-100) fL MCH 27.3 (26-32) pg MCHC 31.4 L (32-36) g/dL RDW 15.8 H (11.5-14.0) % Plt Count 203 (150-450) x10^3/uL MPV 11.4 H (7.5-11.0) fL Gran % 44.4 (36.0-66.0) % Immature Gran % (Auto) 0.3 (0.00-0.4) % Nucleat RBC Rel Count 0.0 (0.00-0.1) % Eos # (Auto) 3.11 H (0-0.5) x10^3/uL Immature Gran # (Auto) 0.03 (0.00-0.03) x10^3u/L Absolute Lymphs (auto) 1.58 (1.0-4.6) x10^3/uL Absolute Monos (auto) 0.50 (0.0-1.3) x10^3/uL Absolute Nucleated RBC 0.00 (0.00-0.01) x10^3u/L Lymphocytes % 16.4 L (24.0-44.0) % Monocytes % 5.2 (0.0-12.0) % Eosinophils % 32.3 H (0.00-5.0) % Basophils % 1.4 (0.0-0.4) % Absolute Granulocytes 4.27 (1.4-6.9) x10^3/uL Basophils # 0.13 (0-0.4) x10^3/uL D-Dimer (0.0-0.50) mg/L Sodium 142 (137-145) mmol/L Potassium 4.0 (3.5-5.1) mmol/L Chloride 109 H (98-107) mmol/L Carbon Dioxide 26 (22-30) mmol/L Anion Gap 11.1 (5-15) MEQ/L BUN 17 (7-17) mg/dL Creatinine 0.80 (0.52-1.04) mg/dL Estimated GFR > 60.0 ML/MIN Glucose 80 (74-106) mg/dL Lactic Acid 2.1 H (0.4-2.0) Calcium 8.5 (8.4-10.2) mg/dL Magnesium 1.9 (1.6-2.3) mg/dL Total Bilirubin 0.40 (0.2-1.3) mg/dL AST 24 (14-36) U/L ALT 17 (0-35) U/L Alkaline Phosphatase 99 (38-126) U/L Troponin I (0.000-0.034) ng/mL NT-Pro-B Natriuret Pep 175 (0-450) pg/mL Serum Total Protein 6.8 (6.3-8.2) g/dL Albumin 3.7 (3.5-5.0) g/dL Influenza Type A Ag (NEGATIVE) Influenza Type B Ag (NEGATIVE) RSV (PCR) (Negative) SARS-CoV-2 (PCR) (NEGATIVE) - Progress Progress: unchanged Air Movement: fair Blood Culture(s) Obtained: No Antibiotics given: Yes Discussed with DrMeet: Dave - Departure Departure Disposition: Home Clinical Impression: COPD exacerbation Condition: Stable Critical Care Time: No Referrals: SINCERE BETHEA [Primary Care Provider] - Follow up/PCP as directed Instructions: Chronic Obstructive Pulmonary Disease
[2022-03-24 15:11] LABS: ALBUMIN 3.7 g/dL (3.5-5.0); ALKALINE PHOSPHATASE 99 U/L (38-126); ANION GAP 11.1 MEQ/L (5-15); BLOOD UREA NITROGEN 17 mg/dL (7-17); CHLORIDE 109 mmol/L (98-107); Calcium 8.5 mg/dL (8.4-10.2); Carbon Dioxide 26 mmol/L (22-30); EST GLOMERULAR FILTRATION RATE > 60.0 ML/MIN; Glucose 80 mg/dL (74-106); MAGNESIUM 1.9 mg/dL (1.6-2.3); NT PRO BNP 175 pg/mL (0-450); SGOT/AST 24 U/L (14-36); SGPT/ALT 17 U/L (0-35); SODIUM 142 mmol/L (137-145); Total Protein 6.8 g/dL (6.3-8.2)
[2022-03-24 15:33] LABS: INFLUENZA A NEGATIVE (NEGATIVE); INFLUENZA B NEGATIVE (NEGATIVE); RESPIRATORY SYNCTIAL VIRUS NEGATIVE (Negative); SARS-CoV-2 Xpert Express NEGATIVE (NEGATIVE)
[2022-03-24] MEDS ORDERED: ROCEPHIN 1 Gm-D5w 50 ml Bag** 1 G/50 ML IVPB IV STA (16:14)
[2022-03-24] MEDS ORDERED: ROCEPHIN 1 Gm-D5w 50 ml Bag** 1 G/50 ML IVPB IV ONE (16:27)
[2022-03-24] MEDS ORDERED: HUMULIN R SQ PRN (18:06)
[2022-03-24] MEDS ORDERED: Zithromax 500 MG/ 250 ML NaCl Premix 500 MG/250 ML IVPB IV ONE (18:19)
[2022-03-24] MEDS: Sodium Chloride 0.9% 1000 ML 1,000 ML IV SCH (18:26)
[2022-03-24] MEDS: solu-MEDROL 80 MG, Sterile H2O 10 ml 2 ML IV SCH ×4 (18:38→23:03)
[2022-03-24] MEDS: PROVENTIL 2.5 MG/3 ML NEB IH SCH ×2 (19:19→23:00)
[2022-03-24 19:26] LABS: Epithelial Cells RARE /HPF (FEW); Mucus SLIGHT /HPF (NEGATIVE); RBC 0-2 /HPF (0-2)
[2022-03-24 19:58] LABS: Appearance CLEAR (CLEAR)
[2022-03-24 19:59] LABS: Bilirubin NEGATIVE (NEGATIVE); Dipstick done @ ? MAIN LAB; Glucose NEGATIVE (NEGATIVE); Ketones NEGATIVE (NEGATIVE); Nitrite NEGATIVE (NEGATIVE); Ph 8.5 (5-6); Protein,Urine Dip NEGATIVE (Negative); RBC NEGATIVE Ery/ul (0-5); Urobilinogen 1 mg/dL (0-1)
[2022-03-24 20:00] LABS: Bacteria NONE SEEN /HPF (NEGATIVE); Urine Cultured Indicated? NO
--- NOTE | 2022-03-24 21:15 | XRAY ---
Indication: Short of breath and wheezing. Comparison: March 16, 2022. Portable chest remains clear. Heart not enlarged. No new/acute findings.
[2022-03-24] MEDS ORDERED: Zestril 20 MG PO ONE (22:00)
[2022-03-24] MEDS: TYLENOL 325 MG PO PRN (23:10)
[2022-03-25] MEDS ORDERED: BENADRYL 50 MG/ML IV ONE (01:55)
[2022-03-25] MEDS ORDERED: TORAdol 30 mg Injection IV ONE (02:00)
[2022-03-25] MEDS: PROVENTIL 2.5 MG/3 ML NEB IH SCH ×6 (03:18→23:03)
[2022-03-25 05:05] LABS: Hematocrit 41.5 % (35-47); Hemoglobin 13.2 g/dL (12.0-16.0); Mean Cell Volume 86.8 fL (78-100); Mean Corpuscular Hemoglobin 27.6 pg (26-32); Mean Corpuscular Hgb Concent. 31.8 g/dL (32-36); Mean Platelet Volume 12.2 fL (7.5-11.0); Platelet Count 190 x10^3/uL (150-450); Red Blood Count 4.78 x10^6/uL (4.1-5.4); Red Cell Distribution Width 15.7 % (11.5-14.0); White Blood Count 5.9 x10^3/uL (4.0-10.5)
[2022-03-25 05:28] LABS: ALBUMIN 3.5 g/dL (3.5-5.0); ALKALINE PHOSPHATASE 78 U/L (38-126); ANION GAP 11.3 MEQ/L (5-15); BLOOD UREA NITROGEN 13 mg/dL (7-17); CHLORIDE 107 mmol/L (98-107); Calcium 9.1 mg/dL (8.4-10.2); Carbon Dioxide 23 mmol/L (22-30); Creatinine 1 0.65 mg/dL (0.52-1.04); EST GLOMERULAR FILTRATION RATE > 60.0 ML/MIN; Glucose 173 mg/dL (74-106); Potassium 4.1 mmol/L (3.5-5.1); SGOT/AST 22 U/L (14-36); SGPT/ALT 17 U/L (0-35); SODIUM 137 mmol/L (137-145); Total Protein 6.5 g/dL (6.3-8.2)
[2022-03-25] MEDS ORDERED: Sterile H2O 10 ml IJ ONE (06:01)
[2022-03-25] MEDS ORDERED: solu-MEDROL ONE (06:01)
[2022-03-25] MEDS: solu-MEDROL 80 MG, Sterile H2O 10 ml 2 ML IV SCH ×6 (06:22→17:38)
[2022-03-25] MEDS ORDERED: PROVENTIL 2.5 MG/3 ML NEB IH ONE (06:41)
[2022-03-25] MEDS ORDERED: PATIENT OWN MEDICATION IH SCH (07:00)
[2022-03-25] MEDS ORDERED: APRESOLINE 20 MG/ML INJ IV PRN (07:07)
--- NOTE | 2022-03-25 08:33 | PCM.HP ---
History of Present Illness - Chief Complaint Chief Complaint: Exacerbation of COPD History of Present Illness: is a 46 year old female pt, recently moved back to the area, with hx bariatric surgery, aortic aneurism, htn, copd, asthma, and diabetes who was admitted through ER with COPD exacerbation. She was sick a week ago and in the ER, given po meds and discharged to home. She was feeling better for a few days then started worsening again with increased cough and fatigue. No fever. Drove self to ER yesterday after spending the previous day in bed. Had 10/10 chest pressure at that time (d-dimer and troponins normal).Was admitted for COPD exacerbation with IV antibiotics and IV steroids. Today her chest pressure is 4/10. She is overall feeling much better than at admission. Having OLIVA, 5/10 now (was "through the roof" last night despite Tylenol and ice packs). BP was >210 systolic on admission. Was 180 several times through the night. Pt states she has an aneurism, has been followed by Dr. Godoy, and was told in the ER last week that it was 4.2 cm, up from 4.0 cm previously. Pt also states she has a renal stone that was supposed to have been removed in [place], then she moved and it was never done. - Review of Systems Constitutional: Fatigue Respiratory: Cough (prod green-yellow sputum) Genitourinary Symptoms: Other (known renal stone, last eval in [place]) Psychological: Anxiety, Depression, No Suicidal Ideations (None recently - had suicide attempt remotely, when she lived in [place]), No Homicidal Ideations Medications & Allergies Home Medications: Home Medication List Albuterol Common Canister [Ventolin Common Canister] 2 puff IH Q4H PRN 11/06/16 [History Confirmed 03/24/22] Doxycycline Monohydrate 100 mg PO BID #14 03/16/22 [Rx Confirmed 03/24/22] Fluticasone Propionate [Flovent 110 Mcg MDI] 12 g IH BID #1 inh 03/16/22 [Rx Confirmed 03/24/22] Lisinopril 20 mg [Zestril 20 MG] 40 mg PO DAILY 03/16/22 [History Confirmed 03/24/22] Prednisone 10 mg [Deltasone 10 mg] 10 mg PO BID 5 Days #10 tablet 03/16/22 [Rx Confirmed 03/24/22] Allergies/Adverse Reactions: Allergies Allergy/AdvReac Type Severity Reaction Status Date / Time flurbiprofen [From Ansaid] Allergy Severe Swelling Verified 03/24/22 14:22 morphine AdvReac Intermediate Itching Verified 03/24/22 14:22 - Past Medical History Past Medical History: Yes Neurological History: Migraines, Other ENT History: No Pertinent History Cardiac History: Angina, Hypertension, Other Respiratory History: Asthma, COPD Endocrine Medical History: Diabetes Type II Musculoskelatal History: Degenerative Disk Disease GI Medical History: Colitis, Diverticulosis, GERD, Gallbladder Disease History: Other Pyscho-Social History: Depression, Anxiety Reproductive Disorders: No Pertinent History Comment: TYPE II DM," palpatations" MVP, VERTIGO, kidney stones. " black out spells" none since 2018 - Female History Hx Last Menstrual Period: 2012 Are you now?: No - Past Surgical History Past Surgical History: Yes Neuro Surgical History: No Pertinent History Cardiac History: Cardiac Catheterization Respiratory Surgery: No Pertinent History GI Surgical History: Other, Cholecystectomy Genitourinary Surgical Hx: Other Musculskeletal Surgical Hx: No Pertinent History Female Surgical History: Section, Hysterectomy, Tubal Ligation, Other Other Surgical History: Gastric Bypass 2009; Kidney balloon as child; Uteral ablation. perforated ulcer, abdominal aneurysm (4.4) - Social History Smoking Status: Former smoker How long have you smoked: 15 years Exposure to second hand smoke: Yes Alcohol: None Drug Use: none Significant Family History: no pertinent family hx - Physical Exam Vital Signs: Vital Signs - 24 hr Temp Pulse Resp BP Pulse Ox 03/25/22 07:02 97.8 F 68 18 161/64 94 L 03/25/22 06:45 64 18 94 L 03/25/22 04:00 97.1 F 57 L 16 142/81 92 L 03/25/22 03:19 57 L 16 92 L 03/25/22 00:00 97.1 F 64 20 180/91 92 L 03/24/22 23:01 59 L 20 92 L 03/24/22 19:54 97.7 F 66 20 138/74 94 L 03/24/22 19:19 66 20 94 L 03/24/22 17:45 97.7 F 61 20 189/89 94 L 03/24/22 17:19 97.7 F 61 20 189/89 94 L 03/24/22 17:18 66 22 97 03/24/22 16:53 100 03/24/22 14:25 82 24 100 03/24/22 14:15 98.0 F 87 24 213/132 100 General Appearance: no apparent distress, alert Neurologic Exam: oriented x 3, cooperative Eye Exam: eyes nml inspection Ears, Nose, Throat Exam: moist mucous membranes Neck Exam: normal inspection, non-tender, No lymphadenopathy, No thyromegaly Respiratory Exam: diminished breath sounds (good air exchange), wheezing (mild, throughout), No crackles/rales, No rhonchi Cardiovascular Exam: regular rate/rhythm, normal heart sounds, No murmur Gastrointestinal/Abdomen Exam: soft, normal bowel sounds, No tenderness, No distention, No mass, No guarding, No rebound Back Exam: normal inspection, No rash Extremity Exam: normal inspection, No pedal edema, No swelling Skin Exam: normal color, warm, dry, No rash Results - Labs Lab/Micro Results: Lab Results-Last 24 Hours 03/24/22 03/24/22 03/24/22 Range/Units 14:18 14:20 14:54 WBC 9.6 (4.0-10.5) x10^3/uL RBC 4.95 (4.1-5.4) x10^6/uL Hgb 13.5 (12.0-16.0) g/dL Hct 43.0 (35-47) % MCV 86.9 (78-100) fL MCH 27.3 (26-32) pg MCHC 31.4 L (32-36) g/dL RDW 15.8 H (11.5-14.0) % Plt Count 203 (150-450) x10^3/uL MPV 11.4 H (7.5-11.0) fL Gran % 44.4 (36.0-66.0) % Immature Gran % (Auto) 0.3 (0.00-0.4) % Nucleat RBC Rel Count 0.0 (0.00-0.1) % Eos # (Auto) 3.11 H (0-0.5) x10^3/uL Immature Gran # (Auto) 0.03 (0.00-0.03) x10^3u/L Absolute Lymphs (auto) 1.58 (1.0-4.6) x10^3/uL Absolute Monos (auto) 0.50 (0.0-1.3) x10^3/uL Absolute Nucleated RBC 0.00 (0.00-0.01) x10^3u/L Lymphocytes % 16.4 L (24.0-44.0) % Monocytes % 5.2 (0.0-12.0) % Eosinophils % 32.3 H (0.00-5.0) % Basophils % 1.4 (0.0-0.4) % Absolute Granulocytes 4.27 (1.4-6.9) x10^3/uL Basophils # 0.13 (0-0.4) x10^3/uL D-Dimer (0.0-0.50) mg/L Sodium (137-145) mmol/L Potassium (3.5-5.1) mmol/L Chloride (98-107) mmol/L Carbon Dioxide (22-30) mmol/L Anion Gap (5-15) MEQ/L BUN (7-17) mg/dL Creatinine (0.52-1.04) mg/dL Estimated GFR ML/MIN Glucose (74-106) mg/dL POC Glucometer (74 to 106) mg/dL Hemoglobin A1c 5.54 (4.5-6.0) % Lactic Acid 2.1 H (0.4-2.0) Calcium (8.4-10.2) mg/dL Magnesium (1.6-2.3) mg/dL Total Bilirubin (0.2-1.3) mg/dL AST (14-36) U/L ALT (0-35) U/L Alkaline Phosphatase (38-126) U/L Troponin I (0.000-0.034) ng/mL NT-Pro-B Natriuret Pep (0-450) pg/mL Serum Total Protein (6.3-8.2) g/dL Albumin (3.5-5.0) g/dL Urinalys Dipstick Clnc Urine Color (YELLOW) Urine Appearance (CLEAR) Urine pH (5-6) Ur Specific [place] (1.005-1.025) POC Urine Protein Conf (Negative) Urine Ketones (NEGATIVE) Urine Nitrite (NEGATIVE) Urine Bilirubin (NEGATIVE) Urine Urobilinogen (0-1) mg/dL Urine Leukocytes (NEGATIVE) Urine WBC (Auto) (0-5) /HPF Urine RBC (Auto) (0-2) /HPF U Epithel Cells (Auto) (FEW) /HPF Urine Bacteria (Auto) (NEGATIVE) /HPF Urine RBC (0-5) Sajan/ul Urine Mucus (Auto) (NEGATIVE) /HPF Ur Culture Indicated? Urine Glucose (NEGATIVE) mg/dL Influenza Type A Ag (NEGATIVE) Influenza Type B Ag (NEGATIVE) RSV (PCR) (Negative) SARS-CoV-2 (PCR) (NEGATIVE) 03/24/22 03/24/22 03/24/22 Range/Units 14:54 14:54 14:54 WBC (4.0-10.5) x10^3/uL RBC (4.1-5.4) x10^6/uL Hgb (12.0-16.0) g/dL Hct (35-47) % MCV (78-100) fL MCH (26-32) pg MCHC (32-36) g/dL RDW (11.5-14.0) % Plt Count (150-450) x10^3/uL MPV (7.5-11.0) fL Gran % (36.0-66.0) % Immature Gran % (Auto) (0.00-0.4) % Nucleat RBC Rel Count (0.00-0.1) % Eos # (Auto) (0-0.5) x10^3/uL Immature Gran # (Auto) (0.00-0.03) x10^3u/L Absolute Lymphs (auto) (1.0-4.6) x10^3/uL Absolute Monos (auto) (0.0-1.3) x10^3/uL Absolute Nucleated RBC (0.00-0.01) x10^3u/L Lymphocytes % (24.0-44.0) % Monocytes % (0.0-12.0) % Eosinophils % (0.00-5.0) % Basophils % (0.0-0.4) % Absolute Granulocytes (1.4-6.9) x10^3/uL Basophils # (0-0.4) x10^3/uL D-Dimer 0.30 (0.0-0.50) mg/L Sodium 142 (137-145) mmol/L Potassium 4.0 (3.5-5.1) mmol/L Chloride 109 H (98-107) mmol/L Carbon Dioxide 26 (22-30) mmol/L Anion Gap 11.1 (5-15) MEQ/L BUN 17 (7-17) mg/dL Creatinine 0.80 (0.52-1.04) mg/dL Estimated GFR > 60.0 ML/MIN Glucose 80 (74-106) mg/dL POC Glucometer (74 to 106) mg/dL Hemoglobin A1c (4.5-6.0) % Lactic Acid (0.4-2.0) Calcium 8.5 (8.4-10.2) mg/dL Magnesium 1.9 (1.6-2.3) mg/dL Total Bilirubin 0.40 (0.2-1.3) mg/dL AST 24 (14-36) U/L ALT 17 (0-35) U/L Alkaline Phosphatase 99 (38-126) U/L Troponin I < 0.012 (0.000-0.034) ng/mL NT-Pro-B Natriuret Pep 175 (0-450) pg/mL Serum Total Protein 6.8 (6.3-8.2) g/dL Albumin 3.7 (3.5-5.0) g/dL Urinalys Dipstick Clnc Urine Color (YELLOW) Urine Appearance (CLEAR) Urine pH (5-6) Ur Specific [place] (1.005-1.025) POC Urine Protein Conf (Negative) Urine Ketones (NEGATIVE) Urine Nitrite (NEGATIVE) Urine Bilirubin (NEGATIVE) Urine Urobilinogen (0-1) mg/dL Urine Leukocytes (NEGATIVE) Urine WBC (Auto) (0-5) /HPF Urine RBC (Auto) (0-2) /HPF U Epithel Cells (Auto) (FEW) /HPF Urine Bacteria (Auto) (NEGATIVE) /HPF Urine RBC (0-5) Sajan/ul Urine Mucus (Auto) (NEGATIVE) /HPF Ur Culture Indicated? Urine Glucose (NEGATIVE) mg/dL Influenza Type A Ag (NEGATIVE) Influenza Type B Ag (NEGATIVE) RSV (PCR) (Negative) SARS-CoV-2 (PCR) (NEGATIVE) 03/24/22 03/24/22 03/24/22 Range/Units 14:54 17:04 17:30 WBC (4.0-10.5) x10^3/uL RBC (4.1-5.4) x10^6/uL Hgb (12.0-16.0) g/dL Hct (35-47) % MCV (78-100) fL MCH (26-32) pg MCHC (32-36) g/dL RDW (11.5-14.0) % Plt Count (150-450) x10^3/uL MPV (7.5-11.0) fL Gran % (36.0-66.0) % Immature Gran % (Auto) (0.00-0.4) % Nucleat RBC Rel Count (0.00-0.1) % Eos # (Auto) (0-0.5) x10^3/uL Immature Gran # (Auto) (0.00-0.03) x10^3u/L Absolute Lymphs (auto) (1.0-4.6) x10^3/uL Absolute Monos (auto) (0.0-1.3) x10^3/uL Absolute Nucleated RBC (0.00-0.01) x10^3u/L Lymphocytes % (24.0-44.0) % Monocytes % (0.0-12.0) % Eosinophils % (0.00-5.0) % Basophils % (0.0-0.4) % Absolute Granulocytes (1.4-6.9) x10^3/uL Basophils # (0-0.4) x10^3/uL D-Dimer (0.0-0.50) mg/L Sodium (137-145) mmol/L Potassium (3.5-5.1) mmol/L Chloride (98-107) mmol/L Carbon Dioxide (22-30) mmol/L Anion Gap (5-15) MEQ/L BUN (7-17) mg/dL Creatinine (0.52-1.04) mg/dL Estimated GFR ML/MIN Glucose (74-106) mg/dL POC Glucometer (74 to 106) mg/dL Hemoglobin A1c (4.5-6.0) % Lactic Acid 1.4 (0.4-2.0) Calcium (8.4-10.2) mg/dL Magnesium (1.6-2.3) mg/dL Total Bilirubin (0.2-1.3) mg/dL AST (14-36) U/L ALT (0-35) U/L Alkaline Phosphatase (38-126) U/L Troponin I < 0.012 (0.000-0.034) ng/mL NT-Pro-B Natriuret Pep (0-450) pg/mL Serum Total Protein (6.3-8.2) g/dL Albumin (3.5-5.0) g/dL Urinalys Dipstick Clnc Urine Color (YELLOW) Urine Appearance (CLEAR) Urine pH (5-6) Ur Specific [place] (1.005-1.025) POC Urine Protein Conf (Negative) Urine Ketones (NEGATIVE) Urine Nitrite (NEGATIVE) Urine Bilirubin (NEGATIVE) Urine Urobilinogen (0-1) mg/dL Urine Leukocytes (NEGATIVE) Urine WBC (Auto) (0-5) /HPF Urine RBC (Auto) (0-2) /HPF U Epithel Cells (Auto) (FEW) /HPF Urine Bacteria (Auto) (NEGATIVE) /HPF Urine RBC (0-5) Sajan/ul Urine Mucus (Auto) (NEGATIVE) /HPF Ur Culture Indicated? Urine Glucose (NEGATIVE) mg/dL Influenza Type A Ag NEGATIVE (NEGATIVE) Influenza Type B Ag NEGATIVE (NEGATIVE) RSV (PCR) NEGATIVE (Negative) SARS-CoV-2 (PCR) NEGATIVE (NEGATIVE) 03/24/22 03/24/22 03/25/22 Range/Units 18:37 21:07 05:00 WBC 5.9 (4.0-10.5) x10^3/uL RBC 4.78 (4.1-5.4) x10^6/uL Hgb 13.2 (12.0-16.0) g/dL Hct 41.5 (35-47) % MCV 86.8 (78-100) fL MCH 27.6 (26-32) pg MCHC 31.8 L (32-36) g/dL RDW 15.7 H (11.5-14.0) % Plt Count 190 (150-450) x10^3/uL MPV 12.2 H (7.5-11.0) fL Gran % (36.0-66.0) % Immature Gran % (Auto) (0.00-0.4) % Nucleat RBC Rel Count (0.00-0.1) % Eos # (Auto) (0-0.5) x10^3/uL Immature Gran # (Auto) (0.00-0.03) x10^3u/L Absolute Lymphs (auto) (1.0-4.6) x10^3/uL Absolute Monos (auto) (0.0-1.3) x10^3/uL Absolute Nucleated RBC (0.00-0.01) x10^3u/L Lymphocytes % (24.0-44.0) % Monocytes % (0.0-12.0) % Eosinophils % (0.00-5.0) % Basophils % (0.0-0.4) % Absolute Granulocytes (1.4-6.9) x10^3/uL Basophils # (0-0.4) x10^3/uL D-Dimer (0.0-0.50) mg/L Sodium (137-145) mmol/L Potassium (3.5-5.1) mmol/L Chloride (98-107) mmol/L Carbon Dioxide (22-30) mmol/L Anion Gap (5-15) MEQ/L BUN (7-17) mg/dL Creatinine (0.52-1.04) mg/dL Estimated GFR ML/MIN Glucose (74-106) mg/dL POC Glucometer 189 H (74 to 106) mg/dL Hemoglobin A1c (4.5-6.0) % Lactic Acid (0.4-2.0) Calcium (8.4-10.2) mg/dL Magnesium (1.6-2.3) mg/dL Total Bilirubin (0.2-1.3) mg/dL AST (14-36) U/L ALT (0-35) U/L Alkaline Phosphatase (38-126) U/L Troponin I (0.000-0.034) ng/mL NT-Pro-B Natriuret Pep (0-450) pg/mL Serum Total Protein (6.3-8.2) g/dL Albumin (3.5-5.0) g/dL Urinalys Dipstick Clnc MAIN LAB Urine Color YELLOW (YELLOW) Urine Appearance CLEAR (CLEAR) Urine pH 8.5 (5-6) Ur Specific [place] 1.020 (1.005-1.025) POC Urine Protein Conf NEGATIVE (Negative) Urine Ketones NEGATIVE (NEGATIVE) Urine Nitrite NEGATIVE (NEGATIVE) Urine Bilirubin NEGATIVE (NEGATIVE) Urine Urobilinogen 1 (0-1) mg/dL Urine Leukocytes NEGATIVE (NEGATIVE) Urine WBC (Auto) NONE (0-5) /HPF Urine RBC (Auto) 0-2 (0-2) /HPF U Epithel Cells (Auto) RARE (FEW) /HPF Urine Bacteria (Auto) NONE SEEN (NEGATIVE) /HPF Urine RBC NEGATIVE (0-5) Sajan/ul Urine Mucus (Auto) SLIGHT (NEGATIVE) /HPF Ur Culture Indicated? NO Urine Glucose NEGATIVE (NEGATIVE) mg/dL Influenza Type A Ag (NEGATIVE) Influenza Type B Ag (NEGATIVE) RSV (PCR) (Negative) SARS-CoV-2 (PCR) (NEGATIVE) 03/25/22 03/25/22 Range/Units 05:00 07:18 WBC (4.0-10.5) x10^3/uL RBC (4.1-5.4) x10^6/uL Hgb (12.0-16.0) g/dL Hct (35-47) % MCV (78-100) fL MCH (26-32) pg MCHC (32-36) g/dL RDW (11.5-14.0) % Plt Count (150-450) x10^3/uL MPV (7.5-11.0) fL Gran % (36.0-66.0) % Immature Gran % (Auto) (0.00-0.4) % Nucleat RBC Rel Count (0.00-0.1) % Eos # (Auto) (0-0.5) x10^3/uL Immature Gran # (Auto) (0.00-0.03) x10^3u/L Absolute Lymphs (auto) (1.0-4.6) x10^3/uL Absolute Monos (auto) (0.0-1.3) x10^3/uL Absolute Nucleated RBC (0.00-0.01) x10^3u/L Lymphocytes % (24.0-44.0) % Monocytes % (0.0-12.0) % Eosinophils % (0.00-5.0) % Basophils % (0.0-0.4) % Absolute Granulocytes (1.4-6.9) x10^3/uL Basophils # (0-0.4) x10^3/uL D-Dimer (0.0-0.50) mg/L Sodium 137 (137-145) mmol/L Potassium 4.1 (3.5-5.1) mmol/L Chloride 107 (98-107) mmol/L Carbon Dioxide 23 (22-30) mmol/L Anion Gap 11.3 (5-15) MEQ/L BUN 13 (7-17) mg/dL Creatinine 0.65 (0.52-1.04) mg/dL Estimated GFR > 60.0 ML/MIN Glucose 173 H (74-106) mg/dL POC Glucometer 130 H (74 to 106) mg/dL Hemoglobin A1c (4.5-6.0) % Lactic Acid (0.4-2.0) Calcium 9.1 (8.4-10.2) mg/dL Magnesium (1.6-2.3) mg/dL Total Bilirubin 0.30 (0.2-1.3) mg/dL AST 22 (14-36) U/L ALT 17 (0-35) U/L Alkaline Phosphatase 78 (38-126) U/L Troponin I (0.000-0.034) ng/mL NT-Pro-B Natriuret Pep (0-450) pg/mL Serum Total Protein 6.5 (6.3-8.2) g/dL Albumin 3.5 (3.5-5.0) g/dL Urinalys Dipstick Clnc Urine Color (YELLOW) Urine Appearance (CLEAR) Urine pH (5-6) Ur Specific [place] (1.005-1.025) POC Urine Protein Conf (Negative) Urine Ketones (NEGATIVE) Urine Nitrite (NEGATIVE) Urine Bilirubin (NEGATIVE) Urine Urobilinogen (0-1) mg/dL Urine Leukocytes (NEGATIVE) Urine WBC (Auto) (0-5) /HPF Urine RBC (Auto) (0-2) /HPF U Epithel Cells (Auto) (FEW) /HPF Urine Bacteria (Auto) (NEGATIVE) /HPF Urine RBC (0-5) Sajan/ul Urine Mucus (Auto) (NEGATIVE) /HPF Ur Culture Indicated? Urine Glucose (NEGATIVE) mg/dL Influenza Type A Ag (NEGATIVE) Influenza Type B Ag (NEGATIVE) RSV (PCR) (Negative) SARS-CoV-2 (PCR) (NEGATIVE) Accuchecks Date 03/25/22 Date 03/25/22 Date 03/24/22 Time 07:20 Time 07:00 Time 21:30 - Radiology Impressions Radiology Exams & Impressions: Radiology Procedures Category Date Time Status CHEST 1 VIEW (PORTABLE) Stat Exams 03/24/22 14:39 Completed - Other Procedures and Tests Respiratory Therapy 03/24/22 14:25 Respiratory Therapy Assessment DAILY Assessment/Plan (1) COPD exacerbation Current Visit: Yes Status: Acute Assessment & Plan: Improved; will leave her on IV antibiotics (day #2 of rocephin and zithromax) and IV steroid (80mg q6h) at current dose - re-evaluate tomorrow. Code(s): J44.1 - CHRONIC OBSTRUCTIVE PULMONARY DISEASE W (ACUTE) EXACERBATION (2) Chest pain Current Visit: No Status: Acute Qualifiers: Chest pain type: other chest pain Qualified Code(s): R07.89 - Other chest pain; R07.8 - Other chest pain Assessment & Plan: likely due to COPD exacerbation. D-dimer and troponin (x2) neg. Code(s): R07.9 - CHEST PAIN, UNSPECIFIED (3) Headache Current Visit: Yes Status: Acute Qualifiers: Headache type: unspecified Headache chronicity pattern: acute headache Intractability: not intractable Qualified Code(s): R51.9 - Headache, unspecified Assessment & Plan: acute on chronic. Will treat with tramadol this morning. Code(s): R51.9 - HEADACHE, UNSPECIFIED (4) Aortic aneurysm Current Visit: Yes Status: Suspected Qualifiers: Aortic location: unspecified Presence of rupture: without rupture Qualif ied Code(s): I71.9 - Aortic aneurysm of unspecified site, without rupture Assessment & Plan: Has hx 4 cm aneurism, per pt. I don't see any record of aortic aneurism on her recent CT scan. Will have her f/u with Dr. Godoy. Will get records showing where aneurism was located. Code(s): I71.9 - AORTIC ANEURYSM OF UNSPECIFIED SITE, WITHOUT RUPTURE (5) Nephrolithiasis Current Visit: Yes Status: Suspected Assessment & Plan: [place] like to get records from [place] showing where stone was located. No hematuria today. (6) Mixed anxiety and depressive disorder Current Visit: Yes Status: Chronic Assessment & Plan: no recent suicidal ideation. Will restart SSRI; she states she's been on many different medicines and they'll work for a while and then stop. With suicide attempt in her past, would like her to see psychiatry.
[2022-03-25] MEDS ORDERED: ULTRAM 50 MG PO PRN (08:53)
[2022-03-25] MEDS: Zestril 20 MG PO SCH (09:40)
[2022-03-25] MEDS: ROCEPHIN 1 Gm-D5w 50 ml Bag** 1 G/50 ML IVPB IV SCH (09:40)
[2022-03-25] MEDS ORDERED: Flovent 110 Mcg MDI IH SCH (10:00)
[2022-03-25] MEDS ORDERED: Zofran 4 MG/2 ML VIAL IV PRN (12:09)
[2022-03-25] MEDS: NORCO 5/325 MG PO PRN ×2 (12:37→18:41)
[2022-03-25] MEDS: Sodium Chloride 0.9% 1000 ML 1,000 ML IV SCH (16:04)
[2022-03-25] MEDS: Zithromax 500 MG/ 250 ML NaCl Premix 500 MG/250 ML IVPB IV SCH (17:39)
[2022-03-25] MEDS ORDERED: Zithromax 500 MG/ 250 ML NaCl Premix 500 MG/250 ML IVPB IV SCH (18:30)
[2022-03-26] MEDS: solu-MEDROL 80 MG, Sterile H2O 10 ml 2 ML IV SCH ×4 (00:26→06:05)
[2022-03-26] MEDS: NORCO 5/325 MG PO PRN ×4 (00:26→21:13)
[2022-03-26] MEDS: PROVENTIL 2.5 MG/3 ML NEB IH SCH ×6 (02:55→22:25)
--- NOTE | 2022-03-26 08:50 | PCM.NOTE ---
Date and Time: 03/26/22 0844 Subjective Assessment: Doing better but breathing not at baseline. - Review of Systems Constitutional: No Fever Respiratory: Cough, Short Of Breath Abdominal/Gastrointestinal: No Vomiting Objective Exam General Appearance: no apparent distress, alert Neurologic Exam: oriented x 3, cooperative Skin Exam: normal color, warm, dry, No rash Eye Exam: eyes nml inspection Ears, Nose, Throat Exam: moist mucous membranes Neck Exam: normal inspection Respiratory Exam: diminished breath sounds (good air exchange), wheezing (faint, expiratory, bilat upper lobes), No crackles/rales, No rhonchi Cardiovascular Exam: regular rate/rhythm, normal heart sounds, No murmur Gastrointestinal/Abdomen Exam: soft, normal bowel sounds, No tenderness, No distention, No mass, No guarding, No rebound Extremity Exam: normal inspection, No pedal edema, No swelling OBJECTIVE DATA Vital Signs: Vital Signs - 24 hr Temp Pulse Resp BP Pulse Ox 03/26/22 07:07 97.9 F 60 20 141/82 98 03/26/22 06:59 50 L 14 98 03/26/22 04:00 97.6 F 67 16 122/62 97 03/26/22 02:55 69 18 97 03/26/22 00:00 96.2 F 63 20 126/60 98 03/25/22 23:06 63 16 96 03/25/22 19:37 96.3 F 68 17 120/64 93 L 03/25/22 18:24 107 H 24 93 L 03/25/22 16:00 97.9 F 84 16 108/55 95 03/25/22 14:42 86 20 92 L 03/25/22 11:43 97.9 F 64 16 123/56 95 03/25/22 10:49 74 18 93 L Pain Assessment - Last Documented Pain Intensity 2 Pain Scale Used 0-10 Pain Scale Intake and Output: Intake & Output 03/23/22 03/24/22 03/25/22 03/26/22 11:59 11:59 11:59 11:59 Intake Total 2602 3210 Output Total 1900 Balance 702 3210 Weight 107.5 kg 110.1 kg Lab Results: Lab Results-Last 24 Hours 03/25/22 03/25/22 03/25/22 Range/Units 11:31 16:19 22:00 POC Glucometer 97 114 H 212 H (74 to 106) mg/dL 03/26/22 Range/Units 06:37 POC Glucometer 114 H (74 to 106) mg/dL Radiology Exams: Radiology Procedures Category Date Time Status CHEST 1 VIEW (PORTABLE) Stat Exams 03/24/22 14:39 Completed Assessment/Plan (1) COPD exacerbation Current Visit: Yes Status: Acute Assessment & Plan: improved; decrease steroids today. May be able to discharge to home tomorrow. Code(s): J44.1 - CHRONIC OBSTRUCTIVE PULMONARY DISEASE W (ACUTE) EXACERBATION (2) Chest pain Current Visit: No Status: Resolved Qualifiers: Chest pain type: other chest pain Qualified Code(s): R07.89 - Other chest pain; R07.8 - Other chest pain Code(s): R07.9 - CHEST PAIN, UNSPECIFIED (3) Headache Current Visit: Yes Status: Acute Qualifiers: Headache type: unspecified Headache chronicity pattern: acute headache Intractability: not intractable Qualified Code(s): R51.9 - Headache, unspecified Assessment & Plan: continues to have some; has been better here with norco 5/325. Code(s): R51.9 - HEADACHE, UNSPECIFIED (4) Aortic aneurysm Current Visit: Yes Status: Suspected Qualifiers: Aortic location: unspecified Presence of rupture: without rupture Qualified Code(s): I71.9 - Aortic aneurysm of unspecified site, without rupture Assessment & Plan: Have requested records from her previous providers, so that I may know the location and severity of aneurism and nephrolithiasis. Code(s): I71.9 - AORTIC ANEURYSM OF UNSPECIFIED SITE, WITHOUT RUPTURE (5) Nephrolithiasis Current Visit: Yes Status: Suspected (6) Mixed anxiety and depressive disorder Current Visit: Yes Status: Chronic Assessment & Plan: started prozac today; pt states she was on this previously but then lost her insurance and had to stop it.
[2022-03-26] MEDS: ROCEPHIN 1 Gm-D5w 50 ml Bag** 1 G/50 ML IVPB IV SCH (09:22)
[2022-03-26] MEDS: Zestril 20 MG PO SCH (09:23)
[2022-03-26] MEDS: Prozac 20 MG PO SCH (09:23)
[2022-03-26] MEDS: Sodium Chloride 0.9% 1000 ML 1,000 ML IV SCH ×2 (09:23→14:41)
[2022-03-26] MEDS ORDERED: TORAdol 30 mg Injection IV ONE (10:30)
[2022-03-26] MEDS ORDERED: BENADRYL 50 MG/ML IV ONE (12:08)
[2022-03-26] MEDS: solu-MEDROL 40 MG, Sterile H2O 10 ml 1 ML IV SCH ×4 (13:14→21:09)
[2022-03-26] MEDS: Zithromax 500 MG/ 250 ML NaCl Premix 500 MG/250 ML IVPB IV SCH (17:22)
[2022-03-26] MEDS ORDERED: solu-MEDROL ONE (21:06)
[2022-03-27] MEDS: PROVENTIL 2.5 MG/3 ML NEB IH SCH ×4 (02:25→15:29)
[2022-03-27] MEDS: solu-MEDROL 40 MG, Sterile H2O 10 ml 1 ML IV SCH ×4 (06:10→13:06)
[2022-03-27] MEDS: Sodium Chloride 0.9% 1000 ML 1,000 ML IV SCH (07:14)
[2022-03-27] MEDS: TYLENOL 325 MG PO PRN (07:39)
[2022-03-27] MEDS: NORCO 5/325 MG PO PRN (07:39)
[2022-03-27] MEDS ORDERED: Compazine 5 MG PO PRN (08:31)
[2022-03-27] MEDS ORDERED: Cyclobenzaprine 10 MG PO PRN (08:32)
[2022-03-27 08:38] LABS: Absolute Neutrophil Ct (ANC) 7.93 x10^3/uL (1.4-6.9); Basophil (Absolute #) 0.01 x10^3/uL (0-0.4); Eosinophil (Absolute #) 0 x10^3/uL (0-0.5); Hematocrit 38.2 % (35-47); Hemoglobin 11.5 g/dL (12.0-16.0); Lymphocyte (Absolute #) 0.76 x10^3/uL (1.0-4.6); Lymphocytes % 8.4 % (24.0-44.0); Mean Cell Volume 88.6 fL (78-100); Mean Corpuscular Hemoglobin 26.7 pg (26-32); Mean Corpuscular Hgb Concent. 30.1 g/dL (32-36); Mean Platelet Volume 12.4 fL (7.5-11.0); Monocyte (Absolute #) 0.27 x10^3/uL (0.0-1.3); Neutrophil % 87.9 % (36.0-66.0); Platelet Count 194 x10^3/uL (150-450); Red Blood Count 4.31 x10^6/uL (4.1-5.4); Red Cell Distribution Width 16.2 % (11.5-14.0)
--- NOTE | 2022-03-27 08:40 | PCM.DS ---
Discharge Summary Date of Admission: 03/24/22 17:14 Admitting Physician: DANIELLE VILLALOBOS Primary Care Provider: SINCERE BETHEA Allergies Allergies flurbiprofen [From Ansaid] Allergy (Severe, Verified 03/24/22 14:22) Swelling she can take other nsaids morphine Adverse Reaction (Intermediate, Verified 03/24/22 14:22) Itching "I've never been told im allergic to to it but it makes me itch and i don't like how it makes me feel" ketorolac [From Toradol] Adverse Reaction (Verified 03/26/22 12:09) Rash Hospital Summary - Hospital Course Hospital Course: Pt is a 46 yo female pt with no local MD, hx gastric bypass surgery, COPD, and DM who was admitted through ER with COPD exacerbation. Treated with rocephin and zithromax x 3d. On IV solumedrol, initially 80mg q6h, now on 40mg q8h. WBC nl and CXR non acute. She is tolerating po well. Has not been on any supplemental oxygen. Yesterday she was given toradol IV x 1 and about 2h later her skin turned bright red - resolved with benadryl IV. She has complained of headache with nausea which waxes and wanes throughout her stay - norco with some relief and toradol with some relief yesterday. She will get CT head today and if neg ok to discharge to home. Pt says she has hx migraine and used to be on imipramine. - Vitals & Intake/Output Vital Signs: Vital Signs Temperature 98.2 F 03/27/22 08:00 Pulse Rate 54 L 03/27/22 08:00 Respiratory Rate 16 03/27/22 08:00 Blood Pressure 136/71 03/27/22 08:00 O2 Sat by Pulse Oximetry 99 03/27/22 08:00 Intake & Output: Intake & Output 03/24/22 03/25/22 03/26/22 03/27/22 11:59 11:59 11:59 11:59 Intake Total 2602 3570 2750 Output Total 1900 900 Balance 702 3570 1850 Weight 107.5 kg 110.1 kg 110.6 kg - Lab Result Diagrams: 03/25/22 05:00 03/25/22 05:00 Lab Results-Last 24 Hrs: Lab Results-Last 24 Hours 03/26/22 03/26/22 03/26/22 Range/Units 11:05 16:00 20:33 POC Glucometer 109 H 104 98 (74 to 106) mg/dL 03/27/22 Range/Units 07:27 POC Glucometer 90 (74 to 106) mg/dL - Radiology Exams Ordered Rad Exams-Entire Visit: Radiology Procedures Category Date Time Status HEAD WITHOUT CONTRAST [CT] Urgent Exams 03/27/22 08:30 Ordered - Procedures and Test Procedures and Tests throughout Hospitalization: Therapy Orders & Screens 03/24/22 14:25 Respiratory Therapy Assessment DAILY Comment: 03/24/22 18:22 RT Screen per Nursing Assess ONCE Comment: Protocol Order Physician Instructions: Greater than 3 points order RT Admission Screen Reason For Exam: Triggered on Admission Diagnosis: Exacerbation of COPD Diagnosis: Exacerbation of COPD Pneumonia: No Home O2: No Asthma: Yes CHF: No Home CPAP/BIPAP: No Home Nebs/MDI: Yes Total Points: 9 Discharge Exam General Appearance: no apparent distress, alert Neurologic Exam: oriented x 3, cooperative, business services director II-XII nml as tested, other (plum packer 5/5) Eye Exam: eyes nml inspection Ears, Nose, Throat Exam: moist mucous membranes Neck Exam: normal inspection Respiratory Exam: lungs clear, diminished breath sounds (good air exchange), No crackles/rales, No rhonchi, No wheezing Cardiovascular Exam: regular rate/rhythm, normal heart sounds, No murmur Gastrointestinal/Abdomen Exam: soft, normal bowel sounds, No tenderness, No distention, No mass, No guarding, No rebound Back Exam: normal inspection, No rash Extremity Exam: normal inspection, No pedal edema, No swelling Skin Exam: normal color, warm, dry, No rash Final Diagnosis/Problem List - Final Discharge Diagnosis/Problem (1) COPD exacerbation Current Visit: Yes Status: Acute Assessment & Plan: Day #3 IV rocephin and zithromax. IV solumedrol. Will send home on po augmentin x 4d and po prednisone. Probiotic. May f/u with me in 1 week, but will need a PCP to see afterward (I am no longer taking new pts, and she had transferred out of practice previously so may not be able to see anyone within the practice). Code(s): J44.1 - CHRONIC OBSTRUCTIVE PULMONARY DISEASE W (ACUTE) EXACERBATION (2) Headache Current Visit: Yes Status: Acute Assessment & Plan: acute on chronic. Hurts in a band at the top of her head, but also having nausea, so may be mixed. She was on imipramine previously; however she has a QTc of 487 and may need zofran or compazine to go home (and has been on zithromax here), so will not start that at this time due to concerns about QT prolongation. If CT head neg, home today. Code(s): R51.9 - HEADACHE, UNSPECIFIED (3) Aortic aneurysm Current Visit: Yes Status: Suspected Assessment & Plan: I received records from [place], but the one report that was missing was the cardiac read of her vessels. No mention of brain aneurism. Code(s): I71.9 - AORTIC ANEURYSM OF UNSPECIFIED SITE, WITHOUT RUPTURE (4) Nephrolithiasis Current Visit: Yes Status: Chronic Assessment & Plan: Has an 8mm stone in L kidney, per records from [place]. Not troubling her currently, but will certainly need f/u outpatient with her PCP. (5) Mixed anxiety and depressive disorder Current Visit: Yes Status: Chronic Assessment & Plan: Home on prozac, started here. - Discharge Disposition: Home, Self-Care Condition: Good Prescriptions: New Lactobacillus Acidophilus [Acidophilus TABLET] 1 tab PO TID 5 Days #15 tablet Amox Tr/Potass Clav. 875 mg [Augmentin 875-125 Tablet] 875 mg PO BID 4 Days #8 tablet Prednisone 20 mg [Deltasone 20 mg] 20 mg PO DAILY #17 tablet Fluoxetine HCl 20 mg [Prozac 20 MG] 20 mg PO DAILY #30 cap Continue Albuterol Common Canister [Ventolin Common Canister] 2 puff IH Q4H PRN PRN Reason: Asthma Lisinopril 20 mg [Zestril 20 MG] 40 mg PO DAILY Fluticasone Propionate [Flovent 110 Mcg MDI] 12 g IH BID #1 inh Discontinued Doxycycline Monohydrate 100 mg PO BID #14 Prednisone 10 mg [Deltasone 10 mg] 10 mg PO BID 5 Days #10 tablet Instructions: Chronic Obstructive Pulmonary Disease (COPD) (DC) Additional Instructions: PATIENT WILL NEED TO CALL MARYLIN POON [phone] FOR PSYCH EVAL VISIT. WE WILL NEED TO FILL YOUR PRESCRIPTIONS AT [facility] WITH CURRENT INSURANCE COVERAGE. Follow up with: AVE MILES [CONSULTING PHYSICIAN] - (PATIENT WILL NEED FOLLOW UP AT DISCHARGE. )
[2022-03-27] MEDS: ROCEPHIN 1 Gm-D5w 50 ml Bag** 1 G/50 ML IVPB IV SCH (08:43)
[2022-03-27] MEDS: Prozac 20 MG PO SCH (08:43)
[2022-03-27] MEDS: Zestril 20 MG PO SCH (08:43)
[2022-03-27 09:06] LABS: ANION GAP 7.6 MEQ/L (5-15); BLOOD UREA NITROGEN 19 mg/dL (7-17); CHLORIDE 107 mmol/L (98-107); Calcium 8.7 mg/dL (8.4-10.2); Carbon Dioxide 28 mmol/L (22-30); Creatinine 1 0.74 mg/dL (0.52-1.04); EST GLOMERULAR FILTRATION RATE > 60.0 ML/MIN; Glucose 103 mg/dL (74-106); Potassium 4.6 mmol/L (3.5-5.1); SODIUM 138 mmol/L (137-145)
--- NOTE | 2022-03-27 09:09 | XRAY ---
Indication: Headache 1 week. History of migraines. Multiple contiguous axial images obtained through the head without contrast. Comparison: January 12, 2015. Normal appearing brain parenchyma, ventricles, and bony calvarium. Visualized paranasal sinuses and mastoid air cells are clear. Impression: Continued normal CT head without contrast exam.
[2022-03-27 11:40] VITALS: BP 131/71; PULSE 66; O2SAT 99
[2022-03-27] MEDS: Zithromax 500 MG/ 250 ML NaCl Premix 500 MG/250 ML IVPB IV SCH (13:38)
== END 2022-03-27 15:55 | disposition home or self-care (01) ==
LOC: ED 14:14 → MED SURG 17:14
PROVIDERS: ADMIT Family Medicine; ATTEND Family Medicine
DX: J44.1 Chronic obstructive pulmonary disease with (acute) exacerbation (principal); R51.9 Headache, unspecified; I71.9 Aortic aneurysm of unspecified site, without rupture; F41.9 Anxiety disorder, unspecified; R07.9 Chest pain, unspecified; I10 Essential (primary) hypertension; E11.9 Type 2 diabetes mellitus without complications; N20.0 Calculus of kidney; Z79.899 Other long term (current) drug therapy; Z20.828 Contact with and (suspected) exposure to other viral communicable diseases; Z98.84 Bariatric surgery status
CPT/HCPCS: 0241U; 36000; 36415; 70450; 71045; 80048; 80053; 81015; 82947; 83036; 83605; 83735; 83880; 84484; 85025; 85027; 85379; 93005; 94640; 94760; 96360; 96365; 96374; 99285; G0378; J0456; J0696; J1200; J1815; J1885; J2405; J2920; J2930; J7609; A9270-GY

== ENCOUNTER 2022-04-02 15:29 | Emergency (ER) | payer MEDICAID ==
[2022-04-02] MEDS ORDERED: PROTONIX 40 MG IV IV ONE ×2 (15:39→15:56)
[2022-04-02] MEDS ORDERED: SUBLIMAZE 100 MCG/2 ML IV ONE ×2 (15:39→18:01)
[2022-04-02] MEDS ORDERED: Sodium Chloride 0.9% 1000 ML 1,000 ML IV STA (15:39)
[2022-04-02] MEDS ORDERED: SUBLIMAZE 100 MCG/2 ML ONE ×2 (15:56→18:06)
[2022-04-02] MEDS ORDERED: Sodium Chloride 0.9% 1000 ML 1,000 ML ONE (15:56)
[2022-04-02] MEDS ORDERED: Zofran 4 MG/2 ML VIAL IV ONE (15:58)
[2022-04-02] MEDS ORDERED: Zofran 4 MG/2 ML VIAL ONE (15:58)
[2022-04-02 16:23] LABS: Absolute Neutrophil Ct (ANC) 8.04 x10^3/uL (1.4-6.9); Basophil (Absolute #) 0.01 x10^3/uL (0-0.4); Eosinophil (Absolute #) 0 x10^3/uL (0-0.5); Hematocrit 45.1 % (35-47); Lymphocyte (Absolute #) 1.03 x10^3/uL (1.0-4.6); Lymphocytes % 10.7 % (24.0-44.0); Mean Cell Volume 86.9 fL (78-100); Mean Platelet Volume 11.9 fL (7.5-11.0); Monocyte (Absolute #) 0.45 x10^3/uL (0.0-1.3); Monocytes % 4.7 % (0.0-12.0); Neutrophil % 83.9 % (36.0-66.0); Platelet Count 250 x10^3/uL (150-450); Red Blood Count 5.19 x10^6/uL (4.1-5.4); Red Cell Distribution Width 15.7 % (11.5-14.0); White Blood Count 9.6 x10^3/uL (4.0-10.5)
--- NOTE | 2022-04-02 16:25 | ERPHSYRPT ---
- History of Present Illness Time Seen by Provider: 04/02/22 15:40 Historian: patient Exam Limitations: no limitations Patient Subjective Stated Complaint: Pt states "My belly hurts so bad." Triage Nursing Assessment: Pt presnted alert and oriented x 3, skin pwd. Pt holding her upper abdomen. PT wincing and grunting. pt in no apparent respiratory distress. Physician History: Patient is a 46-year-old female who presents with epigastric abdominal pain. She was sent from her PCPs office. The pain has been present for 2 weeks. She was recently hospitalized for hospitalized for COPD exacerbation and at that time had a lot of acid reflux and was treated with a PPI by her PCP she says she can eat she has nausea and vomiting. She did have gastric bypass several years ago and few years ago also had a perforated ulcer. Timing/Duration: week(s) (2) Activities at Onset: none Quality: cramping, stabbing Abdominal Pain Onset Location: epigastric Pain Radiation: no radiation Severity of Pain-Max: moderate Severity of Pain-Current: moderate Modifying Factors: Improves With: eating Associated Symptoms: loss of appetite, nausea, vomiting Previous symptoms: same symptoms as today Allergies/Adverse Reactions: flurbiprofen [From Ansaid] Allergy (Severe, Verified 03/24/22 14:22) Swelling she can take other nsaids morphine Adverse Reaction (Intermediate, Verified 03/24/22 14:22) Itching "I've never been told im allergic to to it but it makes me itch and i don't like how it makes me feel" ketorolac [From Toradol] Adverse Reaction (Verified 03/26/22 12:09) Rash Home Medications: Albuterol Common Canister [Ventolin Common Canister] 2 puff IH Q4H PRN 11/06/16 [History] Lisinopril 20 mg [Zestril 20 MG] 40 mg PO DAILY 03/16/22 [History] Hx Tetanus, Diphtheria Vaccination/Date Given: Yes Hx Influenza Vaccination/Date Given: Yes Hx Pneumococcal Vaccination/Date Given: No Immunizations Up to Date: Yes Travel Risk - International Travel Have you traveled outside of the country in past 3 weeks: No - Coronavirus Screening Are you exhibiting any of the following symptoms?: No Close contact with a COVID-19 positive Pt in past 14-21 Days: No - Vaccine Status Have you recieved a Covid-19 vaccination: No - Review of Systems Constitutional: No Fever, No Chills Eyes: No Symptoms Ears, Nose, & Throat: No Symptoms Respiratory: No Cough, No Dyspnea Cardiac: No Chest Pain, No Edema, No Syncope Abdominal/Gastrointestinal: Abdominal Pain, Nausea, Vomiting, No Diarrhea Genitourinary Symptoms: No Dysuria Musculoskeletal: No Back Pain, No Neck Pain Skin: No Rash Neurological: No Dizziness, No Focal Weakness, No Sensory Changes Psychological: No Symptoms Endocrine: No Symptoms All Other Systems: Reviewed and Negative - Past Medical History Pertinent Past Medical History: Yes Neurological History: Migraines, Other ENT History: No Pertinent History Cardiac History: Angina, Hypertension, Other Respiratory History: Asthma, COPD Endocrine Medical History: Diabetes Type II Musculoskeletal History: Degenerative Disk Disease GI Medical History: Colitis, Diverticulosis, GERD, Gallbladder Disease History: Other Psycho-Social History: Depression, Anxiety Female Reproductive Disorders: No Pertinent History Other Medical History: TYPE II DM," palpatations" MVP, VERTIGO, kidney stones. " black out spells" none since 2019 - Past Surgical History Past Surgical History: Yes Neuro Surgical History: No Pertinent History Cardiac: Cardiac Catheterization Respiratory: No Pertinent History Gastrointestinal: Other, Cholecystectomy Genitourinary: Other Musculoskeletal: No Pertinent History Female Surgical History: Section, Hysterectomy, Tubal Ligation, Other Other Surgical History: Gastric Bypass 2009; Kidney balloon as child; Uteral ablation. perforated ulcer, abdominal aneurysm (4.4) - Social History Smoking Status: Former smoker How long have you smoked: 15 years Exposure to second hand smoke: Yes Alcohol Use: None Drug Use: none Patient Lives Alone: No Significant Family History: no pertinent family hx - Female History Hx Last Menstrual Period: 2012 Hx Now: No - Nursing Vital Signs Nursing Vital Signs: Initial Vital Signs Temperature 97.9 F 04/02/22 15:36 Pulse Rate 71 04/02/22 15:36 Respiratory Rate 20 04/02/22 15:36 Blood Pressure 152/103 04/02/22 15:36 O2 Sat by Pulse Oximetry 99 04/02/22 15:36 Pain Scale Pain Intensity 6 - Physical Exam General Appearance: no apparent distress, alert Eye Exam: PERRL/EOMI, eyes nml inspection Ears, Nose, Throat Exam: normal ENT inspection, pharynx normal, moist mucous membranes Neck Exam: normal inspection, non-tender, supple, full range of motion Respiratory Exam: normal breath sounds, lungs clear, No respiratory distress Cardiovascular Exam: regular rate/rhythm, normal heart sounds Gastrointestinal/Abdomen Exam: tenderness (Tenderness in the epigastric area), other (Bowel sounds are present but decreased), No mass, No guarding, No rebound Back Exam: normal inspection, normal range of motion, No CVA tenderness, No vertebral tenderness Extremity Exam: normal inspection, normal range of motion, pelvis stable Neurologic Exam: alert, oriented x 3, cooperative, normal mood/affect, nml cerebellar function, sensation nml, No motor deficits Skin Exam: normal color, warm, dry SpO2 Interpretation: normal SpO2: 99 O2 Delivery: Room Air - Course Nursing assessment & vital signs reviewed: Yes EKG Interpreted by Me: RATE (61), Sinus Rhythm, Left [place] Deviation, NORMAL INTERVALS, NORMAL QRS, Non-specific ST Changes - CT Exams Abdomen/Pelvis CT Interpretation: Tele-radiologist Report Ordered Tests: Active Orders 24 hr Category Date Time Status EKG-ER Only STAT Care 04/02/22 15:39 Active IV Insertion STAT Care 04/02/22 15:39 Active ABDOMEN AND PELVIS W/0 CONTRAS [CT] Stat Exams 04/02/22 15:39 Completed CHEST 1 VIEW (PORTABLE) Stat Exams 04/02/22 15:39 Completed AMYLASE Stat Lab 04/02/22 15:50 Completed CBC W DIFF Stat Lab 04/02/22 15:50 Completed CMP Stat Lab 04/02/22 15:50 Completed LIPASE Stat Lab 04/02/22 15:50 Completed Lactic Acid Stat Lab 04/02/22 16:00 Completed PROTIME WITH INR Stat Lab 04/02/22 15:50 Completed TROPONIN Q3H Lab 04/02/22 15:50 Completed TROPONIN Q3H Lab 04/02/22 18:45 Ordered TROPONIN Q3H Lab 04/02/22 21:45 Ordered TROPONIN Q3H Lab 04/03/22 00:45 Ordered TROPONIN Q3H Lab 04/03/22 03:45 Ordered UA W/RFX CULTURE Stat Lab 04/02/22 15:50 Completed Medication Summary Discontinued Medications Generic Name Dose Route Start Last Admin Trade Name Freq PRN Reason Stop Dose Admin Fentanyl Citrate 100 mcg 04/02/22 15:39 04/02/22 15:57 Fentanyl Citrate 100 Mcg/2 Ml* Vial IV 04/02/22 15:40 100 mcg STAT ONE Administration Fentanyl Citrate Confirm 04/02/22 15:56 Fentanyl Citrate 100 Mcg/2 Ml* Vial Administered 04/02/22 15:57 Dose 100 mcg .ROUTE .STK-MED ONE Fentanyl Citrate 100 mcg 04/02/22 18:01 Fentanyl Citrate 100 Mcg/2 Ml* Vial IV 04/02/22 18:02 STAT ONE Sodium Chloride 1,000 mls @ 999 mls/hr 04/02/22 15:39 04/02/22 17:07 Sodium Chloride 0.9% 1000 Ml IV 04/02/22 16:39 Infused .Q1H1M STA Infusion Sodium Chloride Confirm 04/02/22 15:56 Sodium Chloride 0.9% 1000 Ml Administered 04/02/22 15:57 Dose 1,000 mls @ ud .ROUTE .STK-MED ONE Ondansetron HCl 4 mg 04/02/22 15:58 04/02/22 15:59 Ondansetron Hcl 4 Mg/2 Ml Vial IV 04/02/22 15:59 4 mg STAT ONE Administration Ondansetron HCl Confirm 04/02/22 15:58 Ondansetron Hcl 4 Mg/2 Ml Vial Administered 04/02/22 15:59 Dose 4 mg .ROUTE .STK-MED ONE Pantoprazole Sodium 40 mg 04/02/22 15:39 04/02/22 15:57 Pantoprazole 40 Mg Vial IV 04/02/22 15:40 40 mg STAT ONE Administration Pantoprazole Sodium Confirm 04/02/22 15:56 Pantoprazole 40 Mg Vial Administered 04/02/22 15:57 Dose 40 mg IV .STK-MED ONE Lab/Rad Data: Laboratory Result Diagrams 04/02/22 15:50 04/02/22 15:50 Laboratory Results 04/02/22 04/02/22 04/02/22 Range/Units 16:00 15:50 15:50 WBC (4.0-10.5) x10^3/uL RBC (4.1-5.4) x10^6/uL Hgb (12.0-16.0) g/dL Hct (35-47) % MCV (78-100) fL MCH (26-32) pg MCHC (32-36) g/dL RDW (11.5-14.0) % Plt Count (150-450) x10^3/uL MPV (7.5-11.0) fL Gran % (36.0-66.0) % Immature Gran % (Auto) (0.00-0.4) % Nucleat RBC Rel Count (0.00-0.1) % Eos # (Auto) (0-0.5) x10^3/uL Immature Gran # (Auto) (0.00-0.03) x10^3u/L Absolute Lymphs (auto) (1.0-4.6) x10^3/uL Absolute Monos (auto) (0.0-1.3) x10^3/uL Absolute Nucleated RBC (0.00-0.01) x10^3u/L Lymphocytes % (24.0-44.0) % Monocytes % (0.0-12.0) % Eosinophils % (0.00-5.0) % Basophils % (0.0-0.4) % Absolute Granulocytes (1.4-6.9) x10^3/uL Basophils # (0-0.4) x10^3/uL PT (9.4-12.5) SECONDS INR (0.8-3.0) Sodium (137-145) mmol/L Potassium (3.5-5.1) mmol/L Chloride (98-107) mmol/L Carbon Dioxide (22-30) mmol/L Anion Gap (5-15) MEQ/L BUN (7-17) mg/dL Creatinine (0.52-1.04) mg/dL Estimated GFR ML/MIN Glucose (74-106) mg/dL Lactic Acid 0.8 (0.4-2.0) Calcium (8.4-10.2) mg/dL Total Bilirubin (0.2-1.3) mg/dL AST (14-36) U/L ALT (0-35) U/L Alkaline Phosphatase (38-126) U/L Troponin I < 0.012 (0.000-0.034) ng/mL Serum Total Protein (6.3-8.2) g/dL Albumin (3.5-5.0) g/dL Amylase (30-110) U/L Lipase (23-300) U/L Urinalys Dipstick Clnc MAIN LAB Urine Color YELLOW (YELLOW) Urine Appearance CLEAR (CLEAR) Urine pH 7.0 (5-6) Ur Specific Ear[place] 1.025 (1.005-1.025) POC Urine Protein Conf NEGATIVE (Negative) Urine Ketones NEGATIVE (NEGATIVE) Urine Nitrite NEGATIVE (NEGATIVE) Urine Bilirubin NEGATIVE (NEGATIVE) Urine Urobilinogen 0.2 (0-1) mg/dL Urine Leukocytes NEGATIVE (NEGATIVE) Urine WBC (Auto) NONE (0-5) /HPF Urine RBC (Auto) NONE (0-2) /HPF U Epithel Cells (Auto) RARE (FEW) /HPF Urine Bacteria (Auto) NONE (NEGATIVE) /HPF Urine RBC NEGATIVE (0-5) Sajan/ul Urine Mucus (Auto) SLIGHT (NEGATIVE) /HPF Ur Culture Indicated? NO Urine Glucose NEGATIVE (NEGATIVE) mg/dL 04/02/22 04/02/22 04/02/22 Range/Units 15:50 15:50 15:50 WBC 9.6 (4.0-10.5) x10^3/uL RBC 5.19 (4.1-5.4) x10^6/uL Hgb 14.0 (12.0-16.0) g/dL Hct 45.1 (35-47) % MCV 86.9 (78-100) fL MCH 27.0 (26-32) pg MCHC 31.0 L (32-36) g/dL RDW 15.7 H (11.5-14.0) % Plt Count 250 (150-450) x10^3/uL MPV 11.9 H (7.5-11.0) fL Gran % 83.9 H (36.0-66.0) % Immature Gran % (Auto) 0.6 H (0.00-0.4) % Nucleat RBC Rel Count 0.0 (0.00-0.1) % Eos # (Auto) 0 (0-0.5) x10^3/uL Immature Gran # (Auto) 0.06 H (0.00-0.03) x10^3u/L Absolute Lymphs (auto) 1.03 (1.0-4.6) x10^3/uL Absolute Monos (auto) 0.45 (0.0-1.3) x10^3/uL Absolute Nucleated RBC 0.00 (0.00-0.01) x10^3u/L Lymphocytes % 10.7 L (24.0-44.0) % Monocytes % 4.7 (0.0-12.0) % Eosinophils % 0.0 (0.00-5.0) % Basophils % 0.1 (0.0-0.4) % Absolute Granulocytes 8.04 H (1.4-6.9) x10^3/uL Basophils # 0.01 (0-0.4) x10^3/uL PT 10.3 (9.4-12.5) SECONDS INR 0.97 (0.8-3.0) Sodium 137 (137-145) mmol/L Potassium 4.3 (3.5-5.1) mmol/L Chloride 100 (98-107) mmol/L Carbon Dioxide 30 (22-30) mmol/L Anion Gap 11.4 (5-15) MEQ/L BUN 25 H (7-17) mg/dL Creatinine 0.92 (0.52-1.04) mg/dL Estimated GFR > 60.0 ML/MIN Glucose 107 H (74-106) mg/dL Lactic Acid (0.4-2.0) Calcium 9.0 (8.4-10.2) mg/dL Total Bilirubin 0.60 (0.2-1.3) mg/dL AST 19 (14-36) U/L ALT 18 (0-35) U/L Alkaline Phosphatase 75 (38-126) U/L Troponin I (0.000-0.034) ng/mL Serum Total Protein 7.1 (6.3-8.2) g/dL Albumin 3.9 (3.5-5.0) g/dL Amylase 94 (30-110) U/L Lipase 111 (23-300) U/L Urinalys Dipstick Clnc Urine Color (YELLOW) Urine Appearance (CLEAR) Urine pH (5-6) Ur Specific [place] (1.005-1.025) POC Urine Protein Conf (Negative) Urine Ketones (NEGATIVE) Urine Nitrite (NEGATIVE) Urine Bilirubin (NEGATIVE) Urine Urobilinogen (0-1) mg/dL Urine Leukocytes (NEGATIVE) Urine WBC (Auto) (0-5) /HPF Urine RBC (Auto) (0-2) /HPF U Epithel Cells (Auto) (FEW) /HPF Urine Bacteria (Auto) (NEGATIVE) /HPF Urine RBC (0-5) Sajan/ul Urine Mucus (Auto) (NEGATIVE) /HPF Ur Culture Indicated? Urine Glucose (NEGATIVE) mg/dL - Progress Progress: improved Progress Note: 04/02/22 17:55 Microcalcifications of the head of the pancreas suggest the possibility of some mild chronic pancreatitis - Departure Departure Disposition: Home Clinical Impression: Pancreatitis Condition: Stable Critical Care Time: No Referrals: SINCERE BETHEA [Primary Care Provider] - Follow up/PCP as directed Instructions: Pancreatitis (DC) Prescriptions: Hydrocodone/Acetaminophen [Hydrocodone-Acetamin 5-325 mg] 1 tab PO Q6HPRN PRN 3 Days #12 tablet MDD 4 PRN Reason: Pain
[2022-04-02 16:26] LABS: Appearance CLEAR (CLEAR)
[2022-04-02 16:28] LABS: Bilirubin NEGATIVE (NEGATIVE); Dipstick done @ ? MAIN LAB; Glucose NEGATIVE (NEGATIVE); Ketones NEGATIVE (NEGATIVE); Nitrite NEGATIVE (NEGATIVE); Protein,Urine Dip NEGATIVE (Negative); RBC NEGATIVE Ery/ul (0-5); Specific Gravity 1.025 (1.005-1.025); Urobilinogen 0.2 mg/dL (0-1)
[2022-04-02 16:29] LABS: Epithelial Cells RARE /HPF (FEW); Mucus SLIGHT /HPF (NEGATIVE)
[2022-04-02 16:30] LABS: ALBUMIN 3.9 g/dL (3.5-5.0); ALKALINE PHOSPHATASE 75 U/L (38-126); AMYLASE 94 U/L (30-110); ANION GAP 11.4 MEQ/L (5-15); BLOOD UREA NITROGEN 25 mg/dL (7-17); CHLORIDE 100 mmol/L (98-107); Carbon Dioxide 30 mmol/L (22-30); Creatinine 1 0.92 mg/dL (0.52-1.04); EST GLOMERULAR FILTRATION RATE > 60.0 ML/MIN; Glucose 107 mg/dL (74-106); INR 0.97 (0.8-3.0); LIPASE 111 U/L (23-300); PROTIME 10.3 SECONDS (9.4-12.5); Potassium 4.3 mmol/L (3.5-5.1); SGOT/AST 19 U/L (14-36); SGPT/ALT 18 U/L (0-35); SODIUM 137 mmol/L (137-145); Total Protein 7.1 g/dL (6.3-8.2); Urine Cultured Indicated? NO
--- NOTE | 2022-04-02 16:50 | XRAY ---
Indication: Epigastric pain. Comparison: March 24, 2022 Portable apical lordotic chest again demonstrates normal heart and lungs. Bony thorax intact. No new/acute findings.
--- NOTE | 2022-04-02 16:56 | XRAY ---
Indication: Epigastric pain 2 weeks. History perforated ulcer 2019. Multiple contiguous axial images obtained through the abdomen and pelvis without contrast. Comparison: December 22, 2018 Lung bases now demonstrates mild dependent atelectasis. No infiltrate or effusion. Heart not enlarged Again gastric bypass surgery, cholecystectomy, and hysterectomy. Noncontrasted stomach and bowel loops nonobstructed. Normal air-filled appendix. Again scattered colonic diverticulosis without diverticulitis, pancreatic head microcalcification, and nonobstructing left renal calculus. No free fluid/air. Remaining liver, pancreas, spleen, adrenal glands, kidneys, ureters, bladder, and aorta are unremarkable for noncontrast exam. Minimal bilateral iliac vascular calcifications. Osseous structures intact again with degenerative changes throughout the spine again greatest at L4-L5 and moderate bilateral hip degenerative arthropathy. No ventral or inguinal hernias. Impression: 1. Again colonic diverticulosis, chronic pancreatitis microcalcification, nonobstructing left renal calculus, and chronic bony findings. 2. Remaining CT abdomen/pelvis without contrast exam is negative.
[2022-04-02 18:07] VITALS: BP 121/82; PULSE 63; O2SAT 98
== END 2022-04-02 18:24 | disposition home or self-care (01) ==
LOC: ED 15:29
DX: K86.1 Other chronic pancreatitis (principal); R10.13 Epigastric pain; R11.2 Nausea with vomiting, unspecified; I10 Essential (primary) hypertension; J44.9 Chronic obstructive pulmonary disease, unspecified; E11.9 Type 2 diabetes mellitus without complications; Z79.899 Other long term (current) drug therapy; Z98.84 Bariatric surgery status; Z28.310 Unvaccinated for COVID-19; Z79.891 Long term (current) use of opiate analgesic
CPT/HCPCS: 36000; 36415; 71045; 74176; 80053; 81015; 82150; 83605; 83690; 84484; 85025; 85610; 93005; 96360; 96374; 96375; 96376; 99284; J2405; J3010